=== PATIENT | female | born 1950 | race Caucasian/White ===

== ENCOUNTER 2020-09-08 19:41 | Inpatient (IN) | payer MEDICARE, OTHER ==
[~2020-09-08] VITALS: Ht 167.6 cm; Wt 49.5 kg
[2020-09-08] MEDS ORDERED: BUSP5TAB PO (22:16)
[2020-09-08] MEDS ORDERED: MULT-245 PO (22:16)
[2020-09-08] MEDS ORDERED: LEVO88TA43 PO (22:16)
[2020-09-08] MEDS ORDERED: ASCO500T3 PO (22:16)
[2020-09-08] MEDS ORDERED: QUET50TA5 PO (22:16)
[2020-09-08 23:03] VITALS: BP 104/82
--- NOTE | 2020-09-08 23:14 | NUR ---
Admission Note with Justification for Admission to [facility] Patient admitted to [facility] for protective oversight for emergency stabilization of acute psychiatric crisis. Pt admitted from: [facility] Facility Mode of arrival: Facility Transport Accompanied By: Transport staff Precipitating behaviors that initiated intake and admission: pt belligerent, refusing cares/showers, becoming combative and swinging at staff, agitated, anxious, verbally abusive, and name calling. Description of failure of out patient attempts at stabilization in previous setting list behavior and medication trials: "staff distances themselves" from pt according to intake, outpatient psych. Behaviors and assessment findings upon admission: Pt agitated, resistive with staff attempts to provide care. Pt incontinent upon arrival and when staff was attempting to provide care, pt kicking and attempting to strike staff. Once pt was escorted to the bathroom, it was noted that pt brief was completely saturated with urine and feces. Pt had to be escorted to the shower in order to provide tj care d/t her being so uncooperative. Staff x3 needed in order to complete shower and dressing. Afterwards, pt escorted to [facility] for de-escalation and Dr. Fausto main for new orders. Plan: Admit for protective oversight for adjustment and stabilization of medications, behaviors and mood. Intense treatment regimen including groups, medication adjustments, therapy, consistent regimen for ADL's, self care, and sleep hygiene. Daily monitoring by Inpatient staff, Psychiatry, and Medical Physician.
[2020-09-08] MEDS ORDERED: MAGNESIUM HYDROXIDE 2,400 MG/30 ML ORAL.SUSP. PO PRN (23:45)
[2020-09-08] MEDS ORDERED: MAG HYDROX/AL HYDROX/SIMETH 30 ML ORAL.SUSP PO PRN (23:45)
[2020-09-08] MEDS ORDERED: ACETAMINOPHEN 325 MG TABLET PO PRN (23:45)
[2020-09-08] MEDS ORDERED: METHYL SALICYLATE/MENTHOL TOPICAL OINTMENT 57GM TUBE. TP PRN (23:45)
[2020-09-09] MEDS: LEVOTHYROXINE 88 MCG TABLET PO SCH (04:40)
[2020-09-09 08:08] LABS: AMORPHOUS SEDIMENT,UR PRESENT /HPF; BACTERIA,URINE MANY /HPF (0-FEW); BILIRUBIN,URINE NEG (NEG); CLARITY,URINE TURBID; COLOR,URINE AMBER; GLUCOSE,URINE NEG (NEG); NITRITE,URINE NEG (NEG); RBC,URINE RARE /HPF (0-2); SQUAMOUS EPITHELIAL CELL,UR FEW /LPF; UROBILINOGEN,URINE 0.2 mg/dL (0.2 mg/dL)
[2020-09-09] MEDS: NICOTINE 14MG PATCH. TD SCH (08:22)
[2020-09-09] MEDS: ASCORBIC ACID 500 MG TABLET PO SCH (08:22)
[2020-09-09] MEDS: QUEtiapine 50 MG TABLET. PO SCH ×2 (08:22→19:34)
[2020-09-09] MEDS: MULTIVITAMIN with MINERAL TABLET. PO SCH (08:22)
[2020-09-09] MEDS: busPIRone 5 MG TABLET. PO SCH ×3 (08:22→19:34)
[2020-09-09 08:55] LABS: BASO % 0 % (0-3); EOS # 0.1 x10^3/uL (0.0-0.7); EOS % 2 % (0-3); HEMATOCRIT 44.2 % (36.0-47.0); HEMOGLOBIN 14.2 g/dL (12.0-15.5); LYMPH # 2.3 x10^3/uL (1.0-4.8); LYMPH % 27 % (24-48); MEAN CORPUSCULAR HEMOGLOBIN 31 pg (25-35); MEAN CORPUSCULAR HGB CONC 32 g/dL (31-37); MEAN CORPUSCULAR VOLUME 97 fL (79-100); MONO # 0.6 x10^3/uL (0.0-1.1); MONO % 7 % (0-9); NEUT # 5.5 x10^3uL (1.8-7.7); NEUT % 64 % (31-73); PLATELET COUNT 223 x10^3/uL (140-400); RED BLOOD COUNT 4.54 x10^6/uL (3.50-5.40); RED CELL DISTRIBUTION WIDTH 13.8 % (11.5-14.5); WHITE BLOOD COUNT 8.6 x10^3/uL (4.0-11.0)
[2020-09-09 08:56] LABS: ALBUMIN 3.6 g/dL (3.4-5.0); ALBUMIN/GLOBULIN RATIO 0.8 (1.0-1.7); GFR 54.8; MAGNESIUM 1.8 mg/dL (1.8-2.4); POTASSIUM 4.1 mmol/L (3.5-5.1); TOTAL BILIRUBIN 0.4 mg/dL (0.2-1.0); TOTAL PROTEIN 7.9 g/dL (6.4-8.2)
--- NOTE | 2020-09-09 09:55 | NUR ---
Patient took medications whole, also is calm while doing blood draw. Patient has rapid abnormal body movements that appears unwilling. Dr. Bravo paged for consult.
--- NOTE | 2020-09-09 12:52 | CONS ---
DATE OF CONSULTATION: 09/09/2020 REASON FOR CONSULTATION: Medical management. HISTORY OF PRESENT ILLNESS: The patient is a 69-year-old female patient, a resident at [facility], who was admitted to [facility] on account of being agitated, aggressive, combative, striking out at staff, verbally abusive, belligerent, refusing care and showers, all this in a background of major neurocognitive disorder, vascular Alzheimer with delusion, depression and behavioral disorder. PAST MEDICAL HISTORY: Significant for emphysema and hypothyroidism. PAST PSYCHIATRIC HISTORY: Significant for Alzheimer's disease. PAST SURGICAL HISTORY: Significant for tonsillectomy. ALLERGIES: SHE IS ALLERGIC TO CODEINE, PROPOXYPHENE, AND TETRACYCLINE. FAMILY HISTORY: Noncontributory. SOCIAL HISTORY: She is a intermediate resident. She has 1 son. She continued to smoke, does not drink alcohol or use any recreational drugs. REVIEW OF SYSTEMS: As per history of present illness. PHYSICAL EXAMINATION: GENERAL: When I examined her, the patient was pale, cachectic, but no jaundice, cyanosis or thyromegaly. No jugular venous distention or limb edema. VITAL SIGNS: Her heart rate was 110, blood pressure was 104/82, temperature was 98.4, respiratory rate 20, and oxygen saturation was 96%. HEAD, EYES, EARS, NOSE AND THROAT: Normocephalic, atraumatic. NECK: Supple. HEART: Showed normal first and second heart sounds. No gallop, rub, or murmur. CHEST: Showed central trachea, equal bilateral chest expansion, air entry, vesicular sounds. No crepitation or rhonchi. ABDOMEN: Distended, soft, nontender. NEUROLOGIC: The patient is awake, alert, responding appropriately; however, she has abnormal movement of her upper and lower extremities. She is at times difficult to understand. The movements are purposeless, uncontrollable jerking movement consistent with some form of chorea. LABORATORY DATA: Her lab work showed a white cell count of 8600, hemoglobin 14, hematocrit 44, MCV 97 and platelet count 223,000. Her D-dimer was 2.15 mg/dL. Her chemistry showed a serum sodium of 148, potassium of 4.1, chloride 111, bicarbonate 25, anion gap of 12, BUN 24, creatinine 1, estimated GFR was 54 mL per minute. Her glucose was 93, calcium was 10, magnesium was 1.8. Serum iron, TIBC and iron saturation are all within normal range. Her total bilirubin, AST, ALT, alkaline phosphatase were normal. Total protein 7.9, albumin was 3.6. Serum triglycerides were 87, total cholesterol 213, LDL was 144, VLDL was 17, and HDL was 57 and ratio was 4. Her TSH was 0.018. Her urinalysis essentially unremarkable. IMPRESSION: In summary, this is a 69-year-old female patient, a resident at [facility], who was admitted to [facility] on account of worsening agitation, aggression, combative and striking out at staff. She was verbally abusive, belligerent and refusing cares and showers, all this in a background of major neurocognitive disorder. The patient seems to be overall medically stable except that she probably seems to be at least biochemically hyperthyroid. She has also some form of abnormal movement that looks like [place] disease, although she is probably too old for that. I could not elicit any family history from her and she is difficult to understand. We have already consulted Dr. Bravo to assist with that. Meanwhile, I will continue with all her medications. I would probably check her T3, T4, free T4 and once we have the results, we will decide on further management accordingly. Thank you, Dr. Lambert for allowing me to participate in the care of this patient. HAYLEE LINDSEY MD DR: DON/celso JOB#: [id number] / [id number]
[2020-09-09 16:54] VITALS: BP 100/66
--- NOTE | 2020-09-09 18:05 | PSYEV ---
DATE OF SERVICE: 09/08/2020 PSYCHIATRIC EVALUATION SUBJECTIVE: The patient was seen today, met with the staff, and also covering for Dr. Lambert. The patient was admitted from [facility] because of increased agitation, aggression, combative, and striking out at staff. She also has been verbally abusive, belligerent, refusing to take showers. CHIEF COMPLAINT: "I don't know why I am here". HISTORY OF PRESENT ILLNESS: The patient apparently has been a resident at [facility] and she has multiple problems including physical and also psychiatric issues including dementia, gait problems and also involuntary movements. The patient is unable to sit still. The patient is also having increased __ involuntary movements and also involuntary movements of upper and lower extremities. The patient also has explosive speech. The patient during the assessment was pleasant, did not have any major complaints. The patient is having difficulty communicating her feelings, appears to be pleasant, denies of depressed, admits to increased anxiety and also lacking insight to her problems. The patient also has a history of delusional behaviors in the past. PAST MEDICAL HISTORY: History of emphysema, gait impairment, hypothyroidism and involuntary movements and movement disorder. PAST PSYCHIATRIC HISTORY: The patient was not able to give any information with regard to her past whether she has been treated in psychiatric facility or not, but she carries a diagnosis of dementia, Alzheimer's type, generalized anxiety disorder and also bipolar disorder. PSYCHOSOCIAL HISTORY: She has been a [facility] at the [facility] for [facility] years. Apparently, she has one son. The patient has also history of smoking and no evidence of any alcoholism or substance abuse. The patient was not able to talk about her family. MENTAL STATUS EXAMINATION: The patient appeared to be of her stated age, pleasant, somewhat confused, but able to make eye contact. The patient had considerable difficulty with her speech because of her involuntary movements. She has an explosive speech, able to answer a few questions. She knew that this is August and the year 2020 and she knew she was in the hospital, but could not remember the name except for stating "Bernabe". The patient was able to sit through the assessment, but not able to give much information. The patient gets excited easily, pressured speech, racing thoughts. Affect and mood showed she is not depressed, but is anxious, increased psychomotor activity. She denies of any suicidal thoughts, currently not exhibiting any psychotic symptoms. The patient is oriented to surroundings, knew she was in the hospital and knew the month and year. The patient's memory is not testable because of the patient's inability to answer questions. The patient's judgment is fair and insight limited. DIAGNOSTIC IMPRESSION: AXIS I: 1. Bipolar disorder, mixed. 2. Dementia, mild unspecified. 3. Generalized anxiety disorder. AXIS II: None. AXIS III: Emphysema, hypothyroidism, movement disorder. STRENGTHS: Pleasant, able to walk without support. WEAKNESSES: The patient has limitations with regard to her communication and also movements because of the movement disorder. INITIAL TREATMENT PLAN: The patient will be under observation. The patient will continue on her current medications including BuSpar 5 mg t.i.d., Seroquel 50 mg b.i.d., Zyprexa 2.5 mg p.r.n. q. 2 hours and also trazodone 50 mg at night p.r.n. The patient is encouraged to attend all the activities, including individual and group counseling activities. LENGTH OF STAY: 7 days. DISCHARGE CRITERIA: The patient at least to show some improvement without any major behavior problems for 3 consecutive days and will return to the [facility] that she [facility] from. IDALMIS STARR MD DR: JARROD/celso JOB#: [id number] / [id number] [place]
[2020-09-09] MEDS: traZODone 50 MG TABLET. PO PRN (19:35)
--- NOTE | 2020-09-09 22:30 | NUR ---
Pt sitting quietly in the hallway when approached. Pt calm, disorganized, and delusional- she reports that she is leaving tonight. Pt mood extremely labile, she is very restless with severe ataxia. Pt cooperative with assessment and compliant with medications administered whole, however resistive and uncooperative when staff attempted to escort her to her room to obtain an EKG.
[2020-09-10 01:07] LABS: THYROXINE 10.3 ug/dL (4.5-12.0)
[2020-09-10] MEDS: LEVOTHYROXINE 88 MCG TABLET PO SCH (05:21)
--- NOTE | 2020-09-10 06:03 | NUR ---
Pt has low TSH level of 0.018. Am Levothyroxine 88mcg held at this time and pt added to MD list for today in order to address. Will pass on to the next shift.
[2020-09-10 06:21] VITALS: BP 111/53
[2020-09-10 06:26] LABS: HEMOGLOBIN A1C 5.4 % (4.8-5.6)
[2020-09-10] MEDS: NICOTINE 14MG PATCH. TD SCH (08:36)
[2020-09-10] MEDS: busPIRone 5 MG TABLET. PO SCH ×3 (08:36→21:02)
[2020-09-10] MEDS: MULTIVITAMIN with MINERAL TABLET. PO SCH (08:36)
[2020-09-10] MEDS: ASCORBIC ACID 500 MG TABLET PO SCH (08:36)
[2020-09-10] MEDS: QUEtiapine 50 MG TABLET. PO SCH ×2 (08:36→21:02)
--- NOTE | 2020-09-10 10:23 | NUR ---
PT IS LOCATED IN DINING ROOM AT TIME OF ASSESSMENT AND MEDICATION ADMINISTRATION. PT IS PLEASANT AND COOPERATIVE. PT DOES HAVE ALPHONSE SPASTIC MOVEMENT. PT HAS A CT SCHEDULE FOR THIS AM. WILL CONTINUE TO MONITOR.
[2020-09-10 16:29] VITALS: BP 93/57
--- NOTE | 2020-09-10 17:06 | PN ---
DATE: 09/10/2020 SUBJECTIVE: The patient was seen today, met with the staff, chart reviewed and also covering for Dr. Lambert. The patient's behavior remains the same. She is hyperactive, restless, and generalized involuntary movements. The patient also has significant speech impediment. The patient was seen by the neurologist today and will be requesting a CT scan, but the patient may have difficulty going through the procedure because of her continuous involuntary movements. OBSERVATION: Temperature 97.8, blood pressure 111/53, pulse 95, respirations 18, O2 sat 99%. Slept about 4 hours last night. CURRENT MEDICATIONS: Include Seroquel 50 mg twice a day, BuSpar 5 mg t.i.d. and trazodone 50 mg at night p.r.n. for sleep. She is also on olanzapine 2.5 mg q.2 hours p.r.n. for psychosis. LABORATORY DATA: The patient's labs were reviewed. ASSESSMENT: 1. Bipolar disorder, mixed. 2. Dementia, mild, unspecified. 3. Generalized anxiety disorder. PLAN: To continue with the current treatment. LENGTH OF STAY: 10 days. IDALMIS STARR MD DR: JARROD/celso JOB#: [id number] / [id number] [place]
[2020-09-10] MEDS: traZODone 50 MG TABLET. PO PRN (21:02)
--- NOTE | 2020-09-10 22:43 | NUR ---
PT in room being changed in bed at time of assessment and medication administration. PT noted with new reddened/scabbed area noted to RT lateral lower buttock. Continued noted reddened/scabbed area to coccyx. Barrier cream applied. PT compliant with assessment and medications. PT took whole with water. Photo taken but PT moving constantly, unable to use stickers.
[2020-09-11] MEDS: LEVOTHYROXINE 50 MCG TABLET PO SCH ×2 (05:39→05:48)
--- NOTE | 2020-09-11 06:24 | NUR ---
Patient has been provided with Practical Counseling for tobacco cessation. It included a face to face interaction and the following was discussed: Recognizing danger situations, Developing coping skills,Basic cessation information. Will follow for discharge needs and discharge planning. Therapist could never do a smoking cessation on the patient. We have asked nurse to help with this situation. Patient was non compliant a couple of times that different therapist have tried
[2020-09-11] MEDS: MULTIVITAMIN with MINERAL TABLET. PO SCH (10:32)
[2020-09-11] MEDS: ASCORBIC ACID 500 MG TABLET PO SCH (10:32)
[2020-09-11] MEDS: busPIRone 5 MG TABLET. PO SCH ×3 (10:32→21:00)
[2020-09-11] MEDS: QUEtiapine 50 MG TABLET. PO SCH ×2 (10:32→21:00)
[2020-09-11] MEDS: NICOTINE 14MG PATCH. TD SCH (10:36)
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
--- NOTE | 2020-09-11 12:52 | NUR ---
WEEKLY ACTIVITY THERAPY NOTE Date of Admission: 09/08/20 Date of AT Assessment: TBD Precipitating behaviors that initiated intake and admission: pt belligerent, refusing cares/showers, becoming combative and swinging at staff, agitated, anxious, verbally abusive, and name calling. Goal aimed: TBD Initial Goal: TBD Weekly progress towards goal: NA Group participation level: NA Weekly highlights: arrived on [facility] Behaviors observed: Plan: meet/assess pt Beneficial adaptations:
--- NOTE | 2020-09-11 14:13 | NUR ---
PATIENT WAS AWAKE IN A DAY ROOM EATING HER BREAKFAST UPON ASSESSMENT, COMPLIANT WITH MEDICATIONS. PATIENT HAS HYPERACTIVE ABNORMAL MOVEMENTS, ABLE TO AMBULATE AND FEED SELF UNDER SUPERVISION. PATIENT IS GETTING IMPULSIVE AND IRRITABLE AT TIMES. PATIENT WENT TO HER ROOM, ASKED ABOUT HAVING TV IN A ROOM, PATIENT WAS INFORMED NO TV AVAILABLE IN ANY ROOM EXCEPT THE DAY ROOM. PATIENT REFUSED TO GO TO THE DAY ROOM. PATIENT IS CURRENTLY IN A BED RESTING.
--- NOTE | 2020-09-11 14:35 | NUR ---
ACTIVITY THERAPY ASSESSMENT completed based on notes, observation and interview. Pt was laying in her bed with her face in the pillow. Pt was resistive and unwilling to answer questions. Pt did answer a couple of questions but it was inaudible as she had her face in the pillow and became agitated when AT would ask her to repeat it. AT is unsure if pt became agitated and pt intentionally made a fast movement towards AT as she raised her voice or if it may have been involuntary. Per notes pt has appeared to make involuntary movements sense admission. Per notes pt likes crafts, ceramics, interior decorating and painting. Pt has a history of alcohol abuse and inability to take care of herself. Initial goal aimed to increase socialization and engagement. Pt will participate in at least one individual or group Activity Therapy session before discharge. Addendum: 09/18/20 at 1317 by NILA CHAMBERS ACT Goal changed 09/18: Pt will participate in at least three individual or group Activity Therapy session per week. Addendum: 10/02/20 at 1359 by NILA CHAMBERS ACT Goal repeated 10/02
[2020-09-11 15:44] VITALS: BP 116/62
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
[2020-09-11] MEDS: traZODone 50 MG TABLET. PO PRN (21:00)
[2020-09-11] MEDS: AMOXICILLIN 250 MG CAPSULE PO SCH (21:00)
--- NOTE | 2020-09-12 00:25 | PN ---
DATE: 09/11/2020 SUBJECTIVE: The patient was seen today, met with the staff, chart reviewed, also covering for Dr. Lambert. The patient continues to exhibit significant involuntary movements and also staff reports the patient has not had any long-term exposure to neuroleptics because she has been exhibiting significant involuntary movements and also orofacial dyskinesia. The patient also has been homeless in the past and history of alcoholism. The patient apparently saw a neurologist in [place] and also had an MRI and we are requesting for the reports. OBSERVATION: VITAL SIGNS: Temperature 97, pulse 69, respirations 24, O2 sat 95%. GENERAL: Slept about 7 hours last night. The patient's appetite is fair. MEDICATIONS: The patient's current medications include Seroquel 50 mg twice a day, BuSpar 5 mg t.i.d. and trazodone 50 mg at night p.r.n. LAB REVIEW: No significant change from prior readings. ASSESSMENT: 1. Bipolar disorder, mixed. 2. Dementia, mild unspecified. 3. Generalized anxiety disorder. PLAN: To continue with the treatment. LENGTH OF STAY: Ten days. IDALMIS STARR MD DR: JARROD/celso JOB#: [id number] / [id number]
--- NOTE | 2020-09-12 00:57 | NUR ---
Nursing Note: Pt sitting on side of bed during assessment and med pass. Pt pleasant and compliant with medications.
[2020-09-12] MEDS: LEVOTHYROXINE 50 MCG TABLET PO SCH (05:11)
[2020-09-12 06:02] VITALS: BP 120/73
[2020-09-12] MEDS: NICOTINE 14MG PATCH. TD SCH (09:00)
[2020-09-12] MEDS: QUEtiapine 50 MG TABLET. PO SCH ×2 (09:31→19:42)
[2020-09-12] MEDS: ASCORBIC ACID 500 MG TABLET PO SCH (09:31)
[2020-09-12] MEDS: MULTIVITAMIN with MINERAL TABLET. PO SCH (09:31)
[2020-09-12] MEDS: busPIRone 5 MG TABLET. PO SCH ×3 (09:31→19:43)
[2020-09-12] MEDS: AMOXICILLIN 250 MG CAPSULE PO SCH ×3 (09:32→19:42)
[2020-09-12 16:11] VITALS: BP 117/75
--- NOTE | 2020-09-12 18:30 | NUR ---
Patient has been calm, compliant, pleasant, interactive, and social throughout this shift. She spent some time withdrawn to her room in the morning, otherwise spent most of the shift in the day room. She was social with peers and staff. Patient has garbled speech and irregular movements similar to Weakley's. Will continue to monitor and report to oncoming shift.
[2020-09-12] MEDS: traZODone 50 MG TABLET. PO PRN (19:44)
--- NOTE | 2020-09-12 23:47 | NUR ---
Nursing Note Pt in day room, has a severe ataxic gait, flails arms around walks around the day room with a specific pattern to her gait. Pt states her name is Verito, but then trails off and rambling. Med compliant and cooperative.
--- NOTE | 2020-09-13 02:04 | PN ---
DATE: 09/12/2020 SUBJECTIVE: The patient was seen today, met with the staff, chart reviewed and also covering for Dr. Lambert. The patient is exhibiting increased agitation, aggression, and combative behaviors including striking at staff: OBSERVATION: VITAL SIGNS: Temperature 97.7, blood pressure 120/73, respirations 18, pulse 78, O2 sat 96%. GENERAL: Slept about 7 hours last night. The patient continues to have increased involuntary movements and was seen by the neurologist. CURRENT MEDICATIONS: Include Seroquel 50 mg twice a day, BuSpar 5 mg t.i.d., trazodone 50 mg at night, and also olanzapine 2.5 mg q.2 hours p.r.n. The patient is not having any other side effects. According to the reports, the patient has been having involuntary movements for a long period of time. Apparently, there is no indication that she has been exposed to long-term neuroleptics. ASSESSMENT: 1. Bipolar disorder, mixed. 2. Dementia, mild unspecified. 3. Generalized anxiety disorder. 4. History of alcohol dependence. PLAN: To continue with treatment. LENGTH OF STAY: 7-10 days. IDALMIS STARR MD DR: JARROD/celso JOB#: [id number] / [id number]
[2020-09-13] MEDS: LEVOTHYROXINE 50 MCG TABLET PO SCH (05:40)
[2020-09-13 06:07] VITALS: BP 127/82
[2020-09-13] MEDS: AMOXICILLIN 250 MG CAPSULE PO SCH ×3 (08:41→19:51)
[2020-09-13] MEDS: QUEtiapine 50 MG TABLET. PO SCH ×2 (08:41→19:51)
[2020-09-13] MEDS: MULTIVITAMIN with MINERAL TABLET. PO SCH (08:41)
[2020-09-13] MEDS: busPIRone 5 MG TABLET. PO SCH ×3 (08:41→19:51)
[2020-09-13] MEDS: ASCORBIC ACID 500 MG TABLET PO SCH (08:41)
[2020-09-13] MEDS: NICOTINE 14MG PATCH. TD SCH (08:42)
[2020-09-13 15:28] VITALS: BP 88/53
--- NOTE | 2020-09-13 17:28 | NUR ---
Patient has been agitated, resistive to medications, with outbursts of anger today. She was yelling loudly at about lunch time saying that she did not want to stay in the hospital. She was instructed to return to her room as she was upsetting other patients, she refused. When staff attempted to escort her to her room, she lay on the floor and was combative, hitting and kicking staff. PRN medication provided per eMAR and patient was escorted to her room. Patient stayed in her room and was cooperative with 14:00 medications, then suddenly through the water cup and started bouncing up and down on her bed, swinging her arms and kicking out. Patient stayed in her room until later when she was sitting calmly in the [address] during MD's rounds. Will continue to monitor and report to oncoming staff.
[2020-09-13] MEDS: traZODone 50 MG TABLET. PO PRN (19:54)
[2020-09-13] MEDS: clonazePAM 0.5 MG TABLET PO SCH (19:54)
--- NOTE | 2020-09-13 23:25 | NUR ---
Nursing Note Pt initially was compliant with assessment but soon became irritable. Pt using extremely foul language toward nursing, when refusing her meds. She used multiple profane terms to describe me when she realized I was taking her power aid from her. 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 Went to bed with no meds.
--- NOTE | 2020-09-14 00:30 | PN ---
DATE: 09/12/2020 SUBJECTIVE: The patient was seen today, met with the staff, chart reviewed and also covering for Dr. Lambert. Staff reports compliant with meds and assessment, pleasant, interacting with the staff. OBSERVATION: VITAL SIGNS: Temperature 97.0, blood pressure 86/56, pulse 83, respirations 16, O2 sat 95%. CURRENT MEDICATIONS: Include Seroquel 50 mg twice a day, BuSpar 5 mg 3 times a day, trazodone 50 mg at night and also on olanzapine 2.5 mg q. 2 hours p.r.n. The patient is not having any side effects to the medications. The patient continues to have involuntary movements, generalized. ASSESSMENT: 1. Bipolar disorder, mixed. 2. Dementia, mild unspecified. 3. Generalized anxiety disorder. 4. History of alcohol dependence. PLAN: To continue with the treatment. LENGTH OF STAY: 7-10 days. IDALMIS STARR MD DR: JARROD/celso JOB#: [id number] / [id number]
--- NOTE | 2020-09-14 01:05 | PN ---
DATE: 09/10/2020 SUBJECTIVE: The patient denies any new medical or neurological complaints. However, the patient continued to have agitation and aggressive behavior with restlessness and hyperactivity. She continues to have generalized involuntarily movements of the upper and lower extremities with chorea-like movements. Head CT scan was not performed because of continuous involuntarily movements. She has not had any falls or head injuries. OBJECTIVE: GENERAL: Well-developed, well-nourished female, not in acute distress. VITAL SIGNS: Blood pressure 111/53, respiratory rate 18, pulse is 95, temperature 97.8, oxygen saturation 99% on room air. HEENT: Normocephalic, atraumatic, otherwise unremarkable. NECK: Supple. Negative for carotid bruit, lymphadenopathy or thyromegaly. LUNGS: Clear to A and P. CARDIOVASCULAR: Regular rate and rhythm, normal S1, S2. ABDOMEN: Soft. Bowel sounds positive. EXTREMITIES: Negative for cyanosis, clubbing or edema. NEUROLOGICAL EXAM: Mental Status: The patient is alert to herself. Speech is fluent. There is no language dysfunction. Memory, judgment, and abstracting thinking are fair. The patient denies hallucination or delusion. Cranial nerves are intact. No focal motor deficits; however, the patient continues to have abnormal involuntarily movements of the upper and lower extremities with chorea-like movements Sensory examination revealed normal pinprick, light touch, vibratory and position senses. Deep tendon reflexes were symmetric and hypoactive with absent Achilles responses. Gait unsteady stance but difficult to perform tandem gait because of involuntarily movements. IMPRESSION: 1. Involuntarily movements of the upper and lower extremities, which are chorea-type movements. However, the patient continued to have unsteady gait, but not dysarthric, any falls or recent head injuries since admission. The etiology of involuntarily movement is uncertain. According to the nursing staff, the patient did have urinary incontinence. 2. Dementia of mild severity. Normocephalic hydrocephalus should be ruled out as the patient has dementia with gait disturbances and urinary incontinence. 3. Multiple psychiatric problems include bipolar disorders, anxiety disorders with behavior disturbances. RECOMMENDATIONS: As the patient has been unsteady and involuntarily movements, head CT scan performance is a challenge, therefore recommended to have a sedation before the procedure with Valium 5 mg p.o. Otherwise, continue with current medical and psychiatric care. M Gail DEMARCO MD DR: TAMARA/celso JOB#: [id number] / [id number]
[2020-09-14] MEDS: LEVOTHYROXINE 50 MCG TABLET PO SCH (05:38)
[2020-09-14] MEDS ORDERED: diazePAM 5 MG TABLET. PO ONE (06:00)
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
--- NOTE | 2020-09-14 07:57 | RAD ---
CT brain without contrast. HISTORY: Evaluate for hydrocephalus, patient appears to have choreatic movements CT scan of brain was done without contrast. There is motion artifact. There is no intracranial hemorr elodia or subdural hematoma. Motion artifact limits the scan. There is no shift of the midline. CVA is not identified. Patient has hydrocephalus. I do not have an old study for comparison. Sinuses are gunnar ar. IMPRESSION: 1. Limited study due to motion artifact. 2. Hydrocephalus. 3. No intracranial hemorrhage. PQRS Compliance Statement: One or more of the following individualized dose reduction techniques were utilized for this examinat ion: 1. Automated exposure control 2. Adjustment of the mA and/or kV according to patient size 3. Use of iterative reconstruction technique Electronically signed by: Hernandez Warren MD (09/14/2020 7:55 AM) [id number]
[2020-09-14] MEDS: QUEtiapine 50 MG TABLET. PO SCH ×3 (08:22→21:00)
[2020-09-14] MEDS: busPIRone 5 MG TABLET. PO SCH ×4 (08:22→21:00)
[2020-09-14] MEDS: clonazePAM 0.5 MG TABLET PO SCH ×3 (08:22→21:00)
[2020-09-14] MEDS: MULTIVITAMIN with MINERAL TABLET. PO SCH (08:23)
[2020-09-14] MEDS: NICOTINE 14MG PATCH. TD SCH (08:23)
[2020-09-14] MEDS: ASCORBIC ACID 500 MG TABLET PO SCH (08:23)
[2020-09-14] MEDS: AMOXICILLIN 250 MG CAPSULE PO SCH ×4 (08:23→21:00)
[2020-09-14] MEDS: LACTOBACILLUS RHAMNOSUS GG 1 CAPSULE. PO SCH ×3 (13:47→21:00)
[2020-09-14 16:20] VITALS: BP 129/75
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
--- NOTE | 2020-09-14 23:17 | NUR ---
PT IS LOCATED IN PT ROOM AT TIME OF ASSESSMENT AND MEDICATION ADMINISTRATION. PT IS RESITIVE WITH MEDICATIONS AND TOLD THIS NURSE TO GET OUT OF HER ROOM. PT IS STILL RESTING IN BED AT THIS TIME. WILL CONTINUE TO MONITOR.
--- NOTE | 2020-09-15 07:07 | PN ---
DATE: 09/14/2020 SUBJECTIVE: Staff reports no major changes except she is much calmer today and received Klonopin 0.5 mg twice a day. Yesterday ____ but continues to have involuntary movements when she is awake. OBSERVATION: VITAL SIGNS: Stable. MEDICATIONS: The patient's current medications include Seroquel 50 mg twice a day, BuSpar 5 mg 3 times a day, trazodone 50 mg at night, and olanzapine 2.5 mg q. 2 hours p.r.n. and also Klonopin 0.5 mg twice a day. The patient is not having any side effects to the medications. ASSESSMENT: 1. Bipolar disorder. 2. Dementia, mild, unspecified. 3. Generalized anxiety disorder. 4. History of alcohol dependence. PLAN: Continue treatment. LENGTH OF STAY: 7 days. IDALMIS STARR MD DR: JARROD/celso JOB#: [id number] / [id number]
--- NOTE | 2020-09-15 07:59 | PN ---
DATE: 09/14/2020 SUBJECTIVE: The patient denies any new medical or neurological complaints. She has not had any falls recently. However, she continues to have abnormal movements of the upper and lower extremity with unsteady gait. OBJECTIVE: GENERAL: Well-developed, well-nourished female, not in acute distress. VITAL SIGNS: Blood pressure 129/75, respiratory rate of 22, pulse is 112, temperature 97.8, oxygen saturation 95% on room air. HEENT: Normocephalic, atraumatic, otherwise unremarkable. NECK: Supple. Negative for carotid bruit, lymphadenopathy or thyromegaly. LUNGS: Clear to A and P. CARDIOVASCULAR: Regular rate and rhythm, normal S1, S2. There is no S3, S4 or murmur. ABDOMEN: Soft. Bowel sounds positive. EXTREMITIES: Negative for cyanosis, clubbing or edema. NEUROLOGIC EXAM: The patient is alert and oriented to herself and place. Speech is fluent. There is no language dysfunction. Memory, judgment, and abstracting thinking are fair. The patient denies hallucination or delusion. Cranial nerves are intact. No focal motor or sensory deficits; however, the patient continued to have involuntarily movements as described before. Deep tendon reflexes were symmetric and hypoactive with absent Achilles responses. Gait is abnormal tandem gait with mild dystonia. IMPRESSION: 1. Mild dementia with abnormal gait and urinary incontinence suggestive of normal pressure hydrocephalus. 2. Multiple psychiatric problems include bipolar disorder, anxiety disorder. 3. Mild dementia. RECOMMENDATIONS: 1. Continue with current medical and psychiatric care. 2. Awaiting head CT scan to rule out ____ hydrocephalus. M Gail DEMARCO MD DR: TAMARA/celso JOB#: [id number] / [id number]
[2020-09-15] MEDS: busPIRone 5 MG TABLET. PO SCH ×3 (08:33→20:23)
[2020-09-15] MEDS: QUEtiapine 50 MG TABLET. PO SCH ×2 (08:33→20:23)
[2020-09-15] MEDS: MULTIVITAMIN with MINERAL TABLET. PO SCH (08:33)
[2020-09-15] MEDS: NICOTINE 14MG PATCH. TD SCH (08:33)
[2020-09-15] MEDS: clonazePAM 0.5 MG TABLET PO SCH ×2 (08:34→20:22)
[2020-09-15] MEDS: LACTOBACILLUS RHAMNOSUS GG 1 CAPSULE. PO SCH ×2 (08:34→20:23)
[2020-09-15] MEDS: AMOXICILLIN 250 MG CAPSULE PO SCH ×3 (08:34→20:22)
[2020-09-15] MEDS: ASCORBIC ACID 500 MG TABLET PO SCH (08:35)
[2020-09-15] MEDS: LEVOTHYROXINE 50 MCG TABLET PO SCH (08:35)
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
[2020-09-15] MEDS: traZODone 50 MG TABLET. PO PRN (20:22)
--- NOTE | 2020-09-15 21:00 | PN ---
DATE: 09/15/2020 SUBJECTIVE: The patient was seen today, met with the staff, chart reviewed and also covering for Dr. Lambert. Staff reports that she refused medications and also angry with the staff. The patient is being evaluated for movement disorder. The patient apparently had a CT scan positive for hydrocephalus. The patient to be followed up by Dr. Bravo, the neurologist. OBSERVATION: VITAL SIGNS: Temperature 97.7, pulse 96, respirations 20, O2 sat 96%. Slept about 7 hours last night. The patient's appetite is fair. MEDICATIONS: The patient's current medications include Seroquel 50 mg twice a day, BuSpar 5 mg 3 times a day, trazodone 50 mg at night, and olanzapine 2.5 mg q. 2 hours p.r.n. and also Klonopin 0.5 mg twice a day. She is not having any side effects to the medications. ASSESSMENT: 1. Bipolar disorder. 2. Dementia, mild. unspecified. 3. Generalized anxiety disorder. 4. History of alcohol dependence. PLAN: To continue with the treatment. LENGTH OF STAY: 7 days. IDALMIS STARR MD DR: JARROD/celso JOB#: [id number] / [id number]
--- NOTE | 2020-09-15 23:12 | NUR ---
Pt was cooperative at beginning of shift. At 2200 staff gave pt a shower. Pt kicked and screamed curse words at staff. It took 3 staff to bathe pt before putting her back to bed. After some time in bed the pt calmed down and went to sleep.
--- NOTE | 2020-09-15 23:51 | NUR ---
Patient is ambulating around the unit on assumption of care. She is disorganized, confused. Compliant with physical assessments but refused to answer orientation questions. Took her medications whole without issue. No agitation until it was time for shower and HS cares, then patient became belligerent and resistive. Staff assist of 3 required to perform shower, and patient spent the whole time yelling and flailing about. She eventually calmed once brought back to her room. No further agitation. She does not appear to be experiencing any pain or discomfort. Patient appears to be sleeping comfortably at present time. Will continue to monitor.
[2020-09-16] MEDS: LEVOTHYROXINE 50 MCG TABLET PO SCH (05:02)
[2020-09-16] MEDS: MULTIVITAMIN with MINERAL TABLET. PO SCH (08:20)
[2020-09-16] MEDS: busPIRone 5 MG TABLET. PO SCH ×3 (08:20→20:13)
[2020-09-16] MEDS: QUEtiapine 50 MG TABLET. PO SCH ×2 (08:20→20:13)
[2020-09-16] MEDS: ASCORBIC ACID 500 MG TABLET PO SCH (08:20)
[2020-09-16] MEDS: NICOTINE 14MG PATCH. TD SCH (08:20)
[2020-09-16] MEDS: LACTOBACILLUS RHAMNOSUS GG 1 CAPSULE. PO SCH ×2 (08:21→20:13)
[2020-09-16] MEDS: AMOXICILLIN 250 MG CAPSULE PO SCH ×3 (08:21→20:12)
[2020-09-16] MEDS: clonazePAM 0.5 MG TABLET PO SCH (08:23)
--- NOTE | 2020-09-16 14:00 | NUR ---
Patient fell in dayroom. Patient stated she lost her balance. Patient fell back hitting her posterior head. Patient has some swelling and redness localized on her head. Dr. Craig notified of of fall no new orders. Patient family notified of patient fall.
[2020-09-16 15:39] VITALS: BP 102/78
[2020-09-16 15:41] VITALS: BP 90/78
[2020-09-16 16:10] LABS: BASO % 1 % (0-3); EOS # 0.3 x10^3/uL (0.0-0.7); EOS % 4 % (0-3); HEMATOCRIT 41.2 % (36.0-47.0); HEMOGLOBIN 13.5 g/dL (12.0-15.5); LYMPH # 1.7 x10^3/uL (1.0-4.8); LYMPH % 25 % (24-48); MEAN CORPUSCULAR HEMOGLOBIN 32 pg (25-35); MEAN CORPUSCULAR HGB CONC 33 g/dL (31-37); MEAN CORPUSCULAR VOLUME 96 fL (79-100); MONO # 0.5 x10^3/uL (0.0-1.1); MONO % 8 % (0-9); NEUT # 4.1 x10^3uL (1.8-7.7); NEUT % 62 % (31-73); PLATELET COUNT 226 x10^3/uL (140-400); RED BLOOD COUNT 4.28 x10^6/uL (3.50-5.40); RED CELL DISTRIBUTION WIDTH 13.6 % (11.5-14.5); WHITE BLOOD COUNT 6.6 x10^3/uL (4.0-11.0)
[2020-09-16 16:16] LABS: ALBUMIN 3.1 g/dL (3.4-5.0); ALBUMIN/GLOBULIN RATIO 0.8 (1.0-1.7); CREATININE 1.2 mg/dL (0.6-1.0); GFR 44.4; POTASSIUM 4.1 mmol/L (3.5-5.1); TOTAL BILIRUBIN 0.3 mg/dL (0.2-1.0); TOTAL PROTEIN 6.9 g/dL (6.4-8.2)
[2020-09-16 16:41] VITALS: BP 92/51
--- NOTE | 2020-09-16 17:34 | NUR ---
BP low. Orthostatic drop of 30 points from sitting to standing. Dr Craig notified. Order to dc clonapin. Informed Dr Lynn of med change.
[2020-09-16] MEDS: traZODone 50 MG TABLET. PO PRN (20:13)
--- NOTE | 2020-09-16 20:18 | PN ---
DATE: 09/16/2020 SUBJECTIVE: The patient was seen today, met with the staff, chart reviewed. Also, covering for Dr. Lambert. Staff reports she fell today, hit her head with no major injuries. Currently, she is under observation. The patient is still confused, disorganized, resistive to care, compliant with medications, but refused Synthroid. She is also uncooperative with vital signs. The patient continues to show increased involuntary movements, generalized. OBSERVATION: VITAL SIGNS: The patient refused. GENERAL: Slept about 7 hours last night. LABORATORY DATA: The patient's lab reviewed. Also, imaging, the patient had a CT scan of the head and the impression was limited study due to motion artifact, hydrocephalus and no intracranial hemorrhage. MEDICATIONS: The patient's current medications include clonazepam 0.5 mg twice a day mostly for involuntary movements and anxiety, Seroquel 50 mg twice a day, BuSpar 5 mg 3 times a day, trazodone 50 mg at night p.r.n. for sleep and olanzapine 2.5 mg q.2 hours p.r.n. for psychosis. The patient is not having any side effects to medications. ASSESSMENT: 1. Bipolar disorder. 2. Dementia, mild unspecified. 3. Generalized anxiety disorder. 4. History of alcohol dependence. PLAN: To continue with treatment. LENGTH OF STAY: 7 days. IDALMIS STARR MD DR: JARROD/celso JOB#: [id number] / [id number]
--- NOTE | 2020-09-16 21:17 | NUR ---
Patient is in her room on assumption of care, awake in bed. She is disorganized, confused. Compliant with physical assessments but refused to answer orientation questions. Took her medications whole without issue. No agitation. She does not appear to be experiencing any pain or discomfort. Patient appears to be sleeping comfortably at present time. Will continue to monitor.
[2020-09-17] MEDS: LEVOTHYROXINE 50 MCG TABLET PO SCH ×2 (05:05→08:38)
[2020-09-17] MEDS: ASCORBIC ACID 500 MG TABLET PO SCH (08:38)
[2020-09-17] MEDS: busPIRone 5 MG TABLET. PO SCH ×3 (08:38→19:43)
[2020-09-17] MEDS: MULTIVITAMIN with MINERAL TABLET. PO SCH (08:38)
[2020-09-17] MEDS: LACTOBACILLUS RHAMNOSUS GG 1 CAPSULE. PO SCH ×2 (08:38→19:42)
[2020-09-17] MEDS: NICOTINE 14MG PATCH. TD SCH (08:38)
[2020-09-17] MEDS: QUEtiapine 50 MG TABLET. PO SCH ×2 (08:39→19:42)
[2020-09-17] MEDS: AMOXICILLIN 250 MG CAPSULE PO SCH ×3 (08:39→19:42)
--- NOTE | 2020-09-17 18:37 | NUR ---
Pt up for meals with assist. Resistive to ADL if pt is sleeping. Has been in pleasant spirits most of day.
[2020-09-17] MEDS: traZODone 50 MG TABLET. PO PRN (19:42)
--- NOTE | 2020-09-17 21:43 | PN ---
DATE: 09/17/2020 SUBJECTIVE: The patient was seen today, met with the staff, chart reviewed and also covering for Dr. Lambert. The patient apparently resting and staff reports no major behavior problems, no falls, but continues to have increased involuntary movements while she is awake. The patient also resistive to care. OBSERVATION: VITAL SIGNS: Temperature 96.8, refused blood pressure, pulse 83, respirations 18, O2 sat 96%. Slept about 7 hours last night. Her appetite is fair. MEDICATIONS: The patient's current medication includes amoxicillin 250 mg t.i.d., levothyroxine 50 mg daily, Seroquel 50 mg twice a day, BuSpar 5 mg 3 times a day and olanzapine 2.5 mg q. 2 hours p.r.n. and Klonopin was discontinued. The patient's appetite is fair. The patient is not having any major side effects. ASSESSMENT: 1. Bipolar disorder. 2. Dementia, mild, unspecified. 3. Generalized anxiety disorder. 4. History of alcohol dependence. PLAN: To continue with the treatment. LENGTH OF STAY: 7 days. IDALMIS STARR MD DR: JARROD/celso JOB#: [id number] / [id number]
[2020-09-18 06:20] VITALS: BP 129/87
[2020-09-18] MEDS: AMOXICILLIN 250 MG CAPSULE PO SCH ×3 (08:11→20:13)
[2020-09-18] MEDS: ASCORBIC ACID 500 MG TABLET PO SCH (08:11)
[2020-09-18] MEDS: MULTIVITAMIN with MINERAL TABLET. PO SCH (08:11)
[2020-09-18] MEDS: LACTOBACILLUS RHAMNOSUS GG 1 CAPSULE. PO SCH ×2 (08:11→20:13)
[2020-09-18] MEDS: LEVOTHYROXINE 50 MCG TABLET PO SCH (08:11)
[2020-09-18] MEDS: busPIRone 5 MG TABLET. PO SCH ×3 (08:11→20:13)
[2020-09-18] MEDS: QUEtiapine 50 MG TABLET. PO SCH ×2 (08:11→20:13)
[2020-09-18] MEDS: NICOTINE 14MG PATCH. TD SCH (08:11)
--- NOTE | 2020-09-18 13:11 | NUR ---
WEEKLY ACTIVITY THERAPY NOTE Date of Admission: 09/08/20 Date of AT Assessment: 09/11 Precipitating behaviors that initiated intake and admission: pt belligerent, refusing cares/showers, becoming combative and swinging at staff, agitated, anxious, verbally abusive, and name calling. Goal aimed:increase socialization and engagement Initial Goal:Pt will participate in at least one individual or group Activity Therapy session before discharge. Weekly progress towards goal: exceeded, 09/14 Group participation level: 2 min, 1 mod, 1 full Weekly highlights: dancing and encouraging peers on Friday, birdhouses Friday, Easter basket Friday Behaviors observed: pleasant with peers, combative with another pt Friday Plan: change goal to: Pt will participate in at least three individual or group Activity Therapy sessions per week. Beneficial adaptations:
--- NOTE | 2020-09-18 14:21 | TX PLAN ---
Interdisciplinary Tx Plan Admission Information Sep 08, 2020 at 21:37 Legal Status (on Admission): Voluntary DPOA/Guardian Name: Lauren Sainz Contact Other Contact Name: Brody Other Contact Verified Code Status: DNR Allergies: Coded Allergies: codeine (Verified Allergy, Unknown, Unknown, 09/08/20) propoxyphene (Verified Allergy, Unknown, Unknown, 09/08/20) tetracycline (Verified Allergy, Unknown, Unknown, 09/08/20) Diagnoses Primary Diagnosis: 1. Bipolar disorder, mixed. 2. Dementia, mild unspecified. 3. Generalized anxiety disorder. Reasons for Admission: Aggressive, Agitated, Angry, Anxiety/Panic, Combative Problem in Patient's Words: The behaviors that pt is currently demonstrating are the behaviors she was having a few years ago when she was placed in her facility. At that time, she probably hadn't bathed in nine monthes as she was living in an apaprtment and not caring for herself. Additional Admission Comments: Per intake pt, was belligerent, refusing cares/showers, incontinent, combative, swinging at staff, agitated, anxious, verbally abusive, name calling, and staff from her facility would distance themseleves from her because of her behaviors. Problems Active Problems: Agitation, angry, withdrawn, uncooperative Inactive Problems: None noted at this time. Pt Strengths/Limitations Ability for [place]: Poor Cognitive Functioning/Ability: Poor Communication Skills/Ability: Poor Financial Resources: Poor Insight/Judgement: Poor Intellectual Ability: Poor Physical Health: Fair Social Skills: Poor Stability in Family: Fair Stability in School/Work: Poor Verbal Skills: Fair Discharge Criteria Discharge Criteria: No need for close observ., Adequate arrangements @DC, V erbal commit med comply, Improved mood/thought Other Discharge Comments: None at this time. Preliminary Discharge Plan Preliminary DC Plan: Current Living Arrange. Special Precautions Special Precautions: Agitation/Assault Fall Risk: Moderate Initial D/C Plan Pt plan is to return to [facility]. Identified Discharge Needs: None noted at this time. Currently Utilized Resources Currently Utilized Resources/P: PCP is Dr. Morrell Psychiatrist is Dr. Cuenca DPOA is sandra Aluren Emeli Facility is [facility] Community Resources: None noted at this time. Identified Problems/Hx/Goals Objectives/Short-Term Goals Short Term Goals: Control abnormal behavior, Dec. Aggression, Dec. Anxiety/Panic, Dec. Outbursts, Dec. Symp. Depression, Medication Stabilization, Monitor Med Effects, Promote Coping Skill Short Term Goals in Patient's: Medication eval and adjusments to help with controlling abnormal behaviors. Help pt to feel better and be less agitated and more compliant with cares. Interventions/Frequency Staff Interventions/Frequency&: Psychiatry to assess pt three times per week for medication management. Nursing to assess behaviors, monitor medications, and complete 15 minute checks daily. Social work to see pt at least two times weekly to aid in return to placement. Activities to encourage pt to participate in group activities daily. 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 According to pt sandra/Lauren MANUEL. Pt would not necessarily work when she was as her husbands would provide for the home. 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 Education: Pt quit school her gage year as she became at 15 y.o. Community Follow-up PCP Psychiatry Community Provider/Family Inpu: Lauren MANUEL, aware of pt hospitalization and provided information on social history. Lauren available as needed for further information. Treatment Plan Explained Patient/Rn Corrections had this treatment plan explained to him/her as indicated by the signature below and has been given the opportunity to ask questions and make suggestions: Date: Patient/Rn Corrections Signature: Status Update Update Pt eating about 75% of his meals and averaging about 7.25 hours of sleep. Pt intermittently resistive with cares and somewhat argumentative. Pt, however, has been compliant the past couple of days. Staff waiting on records from [facility] of CT and MRI. Sandra participated in treatment plan and involuntary movements have been noted for a couple of years, as well as, shuffling feet when she walks. Pt will return to [facility] once stable. TAURUS HUSAIN Sep 18, 2020 14:21
[2020-09-18 15:45] VITALS: BP 108/72
--- NOTE | 2020-09-18 16:20 | NUR ---
NSG NOTE; CONFUSION PT HAS SPENT MOST OF THE AFTERNOON IN HER ROOM. SHE CONT TO BE CONFUSED AND COMPLIANT
[2020-09-18] MEDS: traZODone 50 MG TABLET. PO PRN (20:13)
--- NOTE | 2020-09-18 20:54 | PN ---
DATE: 09/18/2020 SUBJECTIVE: The patient was seen today, met with the staff, chart reviewed and also covering for Dr. Lambert. Participated in the treatment review conference today. Staff reports increased confusion, disorganized thinking, resistive to care, but compliant with the medications. She slept about 7 hours last night, ate 75% of her meals. MEDICATIONS: Include amoxicillin 250 mg t.i.d., levothyroxine 50 mg daily, Seroquel 50 mg twice a day, BuSpar 5 mg 3 times a day and olanzapine 2.5 mg q. 2 hours p.r.n. and Klonopin was discontinued. The patient's appetite is fair. The patient is not having any major side effects. I also spoke with the family member as part of her treatment review conference. ASSESSMENT: 1. Bipolar disorder. 2. Dementia, mild unspecified. 3. Generalized anxiety disorder. 4. History of alcohol dependence. PLAN: To continue with the treatment. LENGTH OF STAY: 7 days. IDALMIS STARR MD DR: JARROD/celso JOB#: [id number] / [id number]
--- NOTE | 2020-09-18 23:50 | PN ---
DATE: 09/15/2020 SUBJECTIVE: The patient denies any new medical or neurological complaints. She continued to have involuntarily movements and gait disturbances. She has not had any fall recently, however, she has tendency to fall. OBJECTIVE: GENERAL: Well-developed, well-nourished female, not in acute distress. VITAL SIGNS: Blood pressure not recorded. Afebrile, temperature 97.7, oxygen saturation is 96% on room air, and pulse is 96. HEENT: Normocephalic, atraumatic, otherwise unremarkable. NECK: Supple. Negative for carotid bruit, lymphadenopathy or thyromegaly. LUNGS: Clear to A and P. CARDIOVASCULAR: Regular rate and rhythm, normal S1, S2. ABDOMEN: Soft. Bowel sounds positive. EXTREMITIES: Negative for cyanosis, clubbing or edema. NEUROLOGICAL EXAM: Mental Status: The patient is alert and oriented to herself and situation. Speech is slow. No language dysfunction. Memory, judgment, and abstract thinking are fair. The patient denies hallucination or delusion. Cranial nerves are intact. No focal motor or sensory deficit. Deep tendon reflexes were symmetric and hypoactive with absent Achilles responses. Gait: The stance is unsteady. The patient has involuntarily movement involving the upper and lower extremities. Gait is unsteady. DIAGOSTIC STUDIES: Initial nonenhanced CT scan performed on 09/14/2020 revealed hydrocephalus, otherwise unremarkable. IMPRESSION: 1. Dementia of mild severity. 2. Bipolar disorder and generalized anxiety disorders. 3. Involuntarily movements, etiology uncertain, probably due to normal pressure hydrocephalus. 4. History of alcohol dependence. RECOMMENDATIONS: 1. Continue with physical therapy as needed. 2. The patient should have neurosurgeon evaluation on an outpatient basis to evaluate her for possible surgical intervention and shunt placement, otherwise we will continue with current medical and psychiatric care. M Gail DEMARCO MD DR: TAMARA/celso JOB#: [id number] / [id number]
--- NOTE | 2020-09-19 00:28 | NUR ---
Pt withdrawn to room, lying in bed awake when approached. Pt calm, confused, and disorganized but interactive during our encounter. Pt cooperative with assessment and compliant with medications administered whole.
[2020-09-19] MEDS: LEVOTHYROXINE 50 MCG TABLET PO SCH (05:27)
[2020-09-19 06:10] VITALS: BP 130/76
[2020-09-19] MEDS: QUEtiapine 50 MG TABLET. PO SCH ×2 (09:57→19:43)
[2020-09-19] MEDS: ASCORBIC ACID 500 MG TABLET PO SCH (09:57)
[2020-09-19] MEDS: LACTOBACILLUS RHAMNOSUS GG 1 CAPSULE. PO SCH ×2 (09:57→19:43)
[2020-09-19] MEDS: busPIRone 5 MG TABLET. PO SCH ×3 (09:57→19:43)
[2020-09-19] MEDS: MULTIVITAMIN with MINERAL TABLET. PO SCH (09:57)
[2020-09-19] MEDS: NICOTINE 14MG PATCH. TD SCH (09:57)
--- NOTE | 2020-09-19 13:47 | NUR ---
PATIENT LOCATED IN A DAY ROOM PARTICIPATING IN A GROUP UPON ASSESSMENT. PATIENT IS COMPLIANT WITH MEDICATION, NEED SOME ENCOURAGEMENT TO GET PILLS SWALLOWED, PATIENT REPEATEDLY PULLED HER MEDICATIONS OUT FROM HER MOUTH WITH FINGERS, PT WAS INSTRUCTED TO PUT THEM BACK AND SWALLOW WITH WATER. PATIENT FOLLOWED DIRECTIONS. PATIENT IS CURRENTLY IN HER ROOM TAKING A NAP.
[2020-09-19 16:04] VITALS: BP 104/67
[2020-09-19] MEDS: traZODone 50 MG TABLET. PO PRN (19:43)
--- NOTE | 2020-09-19 21:46 | NUR ---
Pt withdrawn to room, lying in bed when approached. Pt irritable, disorganized, and resistive. Pt combative when approached for assessment and medications, striking out at staff. Medications administered via oral syringe which pt consumed.
[2020-09-20] MEDS: LEVOTHYROXINE 50 MCG TABLET PO SCH (05:36)
[2020-09-20 06:09] VITALS: BP_SYST 138; BP_SYST 80; BP_DIAS 102; BP_DIAS 48
[2020-09-20] MEDS: busPIRone 5 MG TABLET. PO SCH ×3 (08:45→20:33)
[2020-09-20] MEDS: MULTIVITAMIN with MINERAL TABLET. PO SCH (08:45)
[2020-09-20] MEDS: ASCORBIC ACID 500 MG TABLET PO SCH (08:45)
[2020-09-20] MEDS: LACTOBACILLUS RHAMNOSUS GG 1 CAPSULE. PO SCH ×2 (08:45→20:33)
[2020-09-20] MEDS: QUEtiapine 50 MG TABLET. PO SCH ×2 (08:45→20:33)
[2020-09-20] MEDS: NICOTINE 14MG PATCH. TD SCH (08:46)
--- NOTE | 2020-09-20 16:08 | NUR ---
Patient was extremely agitated after breakfast and would not take morning medication, she knocked the water cup out of my hand at that time. RE-approached patient after about an hour and she was calm and compliant with medications. She has been disorganized, wandering, and calm for the remainder of this shift. Will continue to monitor and report to oncoming shift.
[2020-09-20 16:15] VITALS: BP 119/76
[2020-09-20] MEDS: traZODone 50 MG TABLET. PO PRN (20:33)
--- NOTE | 2020-09-20 21:43 | PN ---
DATE: 09/19/2020 This is late entry for the service date 09/19/2020. SUBJECTIVE: Staff reports some improvement, increased confusion, but compliant with medication. OBJECTIVE: VITAL SIGNS: Blood pressure 130/76, pulse 83, respirations 16, O2 sat 96%. GENERAL: Slept about 8 hours last night. The patient slept fairly well for the past few days. MEDICATIONS: The patient's current medications include Seroquel 50 mg twice a day, BuSpar 5 mg 3 times a day and olanzapine 2.5 mg q. 2 hours p.r.n. The patient is not having any side effects from the medications. LABORATORY DATA: Reviewed. ASSESSMENT: 1. Bipolar disorder. 2. Dementia, mild unspecified. 3. Generalized anxiety disorder. 4. History of alcohol dependence. PLAN: To continue with the treatment. LENGTH OF STAY: 7 days. IDALMIS STARR MD DR: JARROD/celso JOB#: [id number] / [id number]
--- NOTE | 2020-09-20 22:50 | PN ---
DATE: 09/20/2020 SEEN BY TELEHEALTH SUBJECTIVE: The patient's behavior remains the same. Continues to be hyperactive, restless with markedly involuntary movements. The patient is also exhibiting increased confusion. OBJECTIVE: VITAL SIGNS: Temperature 97.7, blood pressure is 80/48, pulse 78, respirations 18, O2 sat 97%. GENERAL: Slept about 7 hours last night. The patient's appetite is fair. CURRENT MEDICATIONS: She is on Seroquel 50 mg twice a day, BuSpar 5 mg 3 times a day and olanzapine 2.5 mg q. 2 hours p.r.n. LABORATORY DATA: Reviewed. ASSESSMENT: 1. Bipolar disorder. 2. Dementia, mild unspecified. 3. Generalized anxiety disorder. 4. History of alcohol dependence. PLAN: To continue with the treatment. LENGTH OF STAY: 7 days. IDALMIS STARR MD DR: JARROD/celso JOB#: [id number] / [id number]
--- NOTE | 2020-09-20 22:53 | NUR ---
Pt sitting in day room, watching television when approached. Pt disorganized but calm and interactive this evening. Pt cooperative with assessment and compliant with medications administered whole. No agitation or aggression noted thus far this shift.
[2020-09-21] MEDS: LEVOTHYROXINE 50 MCG TABLET PO SCH (05:41)
[2020-09-21 05:53] VITALS: BP 173/89
[2020-09-21] MEDS: QUEtiapine 50 MG TABLET. PO SCH ×2 (08:38→20:30)
[2020-09-21] MEDS: busPIRone 5 MG TABLET. PO SCH ×3 (08:39→20:31)
[2020-09-21] MEDS: ASCORBIC ACID 500 MG TABLET PO SCH (08:39)
[2020-09-21] MEDS: MULTIVITAMIN with MINERAL TABLET. PO SCH (08:39)
[2020-09-21] MEDS: LACTOBACILLUS RHAMNOSUS GG 1 CAPSULE. PO SCH ×2 (08:39→20:31)
[2020-09-21] MEDS: NICOTINE 14MG PATCH. TD SCH (08:39)
[2020-09-21 16:35] VITALS: BP 109/54
--- NOTE | 2020-09-21 18:30 | NUR ---
Patient has been calm, disorganized, and pleasantly confused during this shift. She spent the majority of the morning withdrawn to her room; she did spend a large part of the afternoon in the day room participating in groups. Will continue to monitor and report to oncoming shift.
--- NOTE | 2020-09-21 23:00 | NUR ---
Patient is in h day room on assumption of care, watching television. She is disorganized, confused. Compliant with physical assessments but refused to answer orientation questions. Took her medications whole without issue. No agitation. She does not appear to be experiencing any pain or discomfort. Patient appears to be sleeping comfortably at present time. Will continue to monitor.
[2020-09-22 06:29] VITALS: BP 104/58
[2020-09-22] MEDS: ASCORBIC ACID 500 MG TABLET PO SCH (08:12)
[2020-09-22] MEDS: LEVOTHYROXINE 50 MCG TABLET PO SCH (08:12)
[2020-09-22] MEDS: LACTOBACILLUS RHAMNOSUS GG 1 CAPSULE. PO SCH ×2 (08:12→20:28)
[2020-09-22] MEDS: busPIRone 5 MG TABLET. PO SCH ×3 (08:12→20:28)
[2020-09-22] MEDS: QUEtiapine 50 MG TABLET. PO SCH ×2 (08:12→20:29)
[2020-09-22] MEDS: MULTIVITAMIN with MINERAL TABLET. PO SCH (08:12)
[2020-09-22] MEDS: NICOTINE 7MG PATCH. TD SCH (08:13)
--- NOTE | 2020-09-22 09:55 | NUR ---
Updated notes faxed to pt facility[facility]. Transmittal successful. Follow up call attempted to Natalie at [facility] for return call. SW then contacted pt DPOA, Lauren, and discussed recommendation for consult with neurosurgeon following [facility] discharge. SW reported to Lauren that pt will continue to remain in hospital for now to monitor psychotropic meds and further adjustments as needed. SW will follow up with facility and DPOA again next week.
[2020-09-22 16:24] VITALS: BP 173/88
--- NOTE | 2020-09-22 22:33 | PN ---
DATE: 09/22/2020 SUBJECTIVE: The patient was seen today, met with the staff, chart reviewed. Staff reports increased confusion, disorganized thinking, increased psychomotor activity and also gets agitated, involuntary movements. The patient is compliant with the medications. OBSERVATION: VITAL SIGNS: Temperature 97.4, blood pressure 164/58, pulse 77, respirations 18, O2 sat 95%. GENERAL: Slept about 6 hours last night. The patient's appetite is fair. CURRENT MEDICATIONS: Include Seroquel 50 mg twice a day, BuSpar 5 mg 3 times a day and olanzapine 2.5 mg q. 2 hours p.r.n. ASSESSMENT: 1. Bipolar disorder. 2. Dementia, mild unspecified. 3. Generalized anxiety disorder. 4. History of alcohol dependence. PLAN: To continue with the treatment. LENGTH OF STAY: 7 days. IDALMIS STARR MD DR: JARROD/celso JOB#: [id number] / [id number]
--- NOTE | 2020-09-22 22:43 | PN ---
DATE: 09/21/2020 SUBJECTIVE: The patient was seen today, met with the staff, chart reviewed. Staff reports some improvement. The patient is still hyperactive, restless, involuntary movements. The patient also has high level of anxiety. OBSERVATION: VITAL SIGNS: Temperature 97.6, blood pressure 173/89, pulse 69, respirations 22, O2 sat 100%. GENERAL: Slept about 6 hours last night. The patient's appetite is fair. MEDICATIONS: The patient's current medications include Seroquel 50 mg twice a day, BuSpar 5 mg 3 times a day and olanzapine 2.5 mg q. 2 hours p.r.n. LABORATORY DATA: The patient's lab reviewed. ASSESSMENT: 1. Bipolar disorder. 2. Dementia, unspecified. 3. Generalized anxiety disorder. 4. History of alcohol dependence. PLAN: To continue with the treatment. LENGTH OF STAY: 7 days. IDALMIS STARR MD DR: JARROD/celso JOB#: [id number] / [id number]
--- NOTE | 2020-09-22 23:59 | NUR ---
Patient is in the day room on assumption of care, watching television. She is disorganized, confused. Compliant with physical assessments but refused to answer orientation questions. Took her medications whole without issue. She was angry and resistive with HS cares and shower, but did eventually cooperate. She does not appear to be experiencing any pain or discomfort. Patient appears to be sleeping comfortably at present time. Will continue to monitor.
[2020-09-23 06:44] VITALS: BP 120/70
[2020-09-23] MEDS: LEVOTHYROXINE 50 MCG TABLET PO SCH (08:25)
[2020-09-23] MEDS: POLYETHYLENE GLYCOL 3350 17 GM PACKET. PO SCH (08:26)
[2020-09-23] MEDS: busPIRone 5 MG TABLET. PO SCH ×3 (08:26→21:01)
[2020-09-23] MEDS: QUEtiapine 50 MG TABLET. PO SCH ×2 (08:26→21:01)
[2020-09-23] MEDS: NICOTINE 7MG PATCH. TD SCH (08:26)
[2020-09-23] MEDS: ASCORBIC ACID 500 MG TABLET PO SCH (08:26)
[2020-09-23] MEDS: MULTIVITAMIN with MINERAL TABLET. PO SCH (08:26)
[2020-09-23] MEDS: LACTOBACILLUS RHAMNOSUS GG 1 CAPSULE. PO SCH ×2 (08:26→21:00)
[2020-09-23 15:42] VITALS: BP 102/54
--- NOTE | 2020-09-23 17:22 | NUR ---
Pt has been calm, cooperative, and pleasant during shift today. She was incontinent of bowel when shift first started and staff gave her a shower. Pt was very agitated during the shower but has not displayed any other behaviors this shift. Pt took meds whole this shift. Pt came down for all meals and ate well. She sat in the day room in between meals and was pleasant with other pts.
[2020-09-23] MEDS: traZODone 50 MG TABLET. PO PRN (21:01)
--- NOTE | 2020-09-24 01:49 | NUR ---
Pt pleasant and compliant with meds, continues to ambulate independently. Pills taken whole with minimal cueing.
[2020-09-24] MEDS: LEVOTHYROXINE 50 MCG TABLET PO SCH (05:33)
[2020-09-24 06:37] VITALS: BP 105/63
[2020-09-24] MEDS: busPIRone 5 MG TABLET. PO SCH ×3 (07:46→20:10)
[2020-09-24] MEDS: LACTOBACILLUS RHAMNOSUS GG 1 CAPSULE. PO SCH ×2 (07:46→20:09)
[2020-09-24] MEDS: NICOTINE 7MG PATCH. TD SCH (07:46)
[2020-09-24] MEDS: MULTIVITAMIN with MINERAL TABLET. PO SCH (07:47)
[2020-09-24] MEDS: ASCORBIC ACID 500 MG TABLET PO SCH (07:47)
[2020-09-24] MEDS: POLYETHYLENE GLYCOL 3350 17 GM PACKET. PO SCH (07:47)
[2020-09-24] MEDS: QUEtiapine 50 MG TABLET. PO SCH ×2 (07:47→20:09)
--- NOTE | 2020-09-24 15:39 | NUR ---
Pt calm, cooperative, and pleasant this shift. Ainsley took her meds whole this am; Miralax was held today due to three bowel movements yesterday 09/23. Ainsley ate both breakfast and lunch in the dining room and ate well. She sat outside and listened/sang along to music after breakfast and has been sitting in the day room since lunch.
[2020-09-24 15:52] VITALS: BP 94/64
--- NOTE | 2020-09-24 19:30 | NUR ---
Pt was located in the day room sitting in chair watching TV with other residents/staff members. Pt was pleasant and calm during for her assessment and medication pass. The pt was compliant with taking her medications whole and ate her HS snack independently. Pt was alert to self only. Pt denied pain or discomfort.
[2020-09-24] MEDS: traZODone 50 MG TABLET. PO PRN (20:09)
--- NOTE | 2020-09-24 22:29 | PDOC ---
Exam Note: Trey Note: Late entry for 09/23/20. Please also refer to the separate dictated note~for this date of service dictated separately.~Patient seen individually. Discussed the patient with Nursing staff reviewed the chart.~Reviewed interim history and current functioning. Reviewed vital signs,~Labs/ Radiology~and current medicat ions noted below. Continue current treatment with the changes noted in the dictated addendum note Assessment: Vital Signs/I&O: Vital Signs Date Time Temp Pulse Resp B/P (MAP) Pulse Ox O2 Delivery O2 Flow Rate FiO2 09/24/20 15:52 98.3 88 20 94/64 (74) 97 09/24/20 06:37 Room Air I & O 09/23/20 09/23/20 09/24/20 15:00 23:00 07:00 Intake Total 1500 ml 360 ml Balance 1500 ml 360 ml Current Medications: Meds: Current Medications Medications (Trade) Dose Ordered Sig/Jose M Route PRN Reason Start Time Stop Time Status Last Admin Dose Admin Olanzapine (ZyPREXA ZYDIS) 2.5 mg PRN Q2HR PRN PO PSYCHOSIS 09/08/20 22:15 09/14/20 06:54 Trazodone HCl (Desyrel) 50 mg PRN QHS PRN PO INSOMNIA 09/08/20 22:15 09/24/20 20:09 Buspirone HCl (Buspar) 5 mg TID PO 09/09/20 09:00 09/24/20 20:10 Quetiapine Fumarate (SEROquel) 50 mg BID PO 09/09/20 09:00 09/24/20 20:09 Ascorbic Acid (Vitamin C) 500 mg DAILY PO 09/09/20 09:00 09/24/20 07:47 Levothyroxine Sodium (Synthroid) 88 mcg DAILY06 PO 09/09/20 06:00 09/10/20 12:05 DC 09/09/20 04:40 Multivitamins/ Calcium (Thera-M Plus) 1 tab DAILY PO 09/09/20 09:00 09/24/20 07:47 Acetaminophen (Tylenol) 650 mg PRN Q6HRS PRN PO MILD PAIN / TEMP > 100.3'F 09/08/20 23:45 Multi-Ingredient Ointment (Analgesic [place]) 1 barrie PRN QID PRN TP MUSCLE PAIN 09/08/20 23:45 Al Hydroxide/Mg Hydroxide (Mylanta Plus Xs) 15 ml PRN AFTMEALHC PRN PO DYSPEPSIA 09/08/20 23:45 Magnesium Hydroxide (Milk Of Magnesia) 2,400 mg PRN QHS PRN PO CONSTIPATION 09/08/20 23:45 Nicotine (Nicoderm Cq 14mg Patch) 1 patch DAILY TD 09/09/20 09:00 09/21/20 22:52 DC 09/21/20 08:39 Levothyroxine Sodium (Synthroid) 50 mcg DAILY06 PO 09/11/20 06:00 09/24/20 05:33 Amoxicillin (Amoxil) 250 mg [id number] PO 09/11/20 21:00 09/18/20 21:00 DC 09/18/20 20:13 Clonazepam (KlonoPIN) 0.5 mg BID PO 09/13/20 21:00 09/16/20 17:33 DC 09/16/20 08:23 Diazepam (Valium) 5 mg 1X ONCE PO 09/14/20 06:00 09/14/20 06:01 DC 09/14/20 06:00 Lactobacillus Rhamnosus (Culturelle) 1 cap BID PO 09/14/20 09:00 09/24/20 20:09 Nicotine (Nicoderm Cq 7mg Patch) 1 patch DAILY TD 09/22/20 09:00 10/06/20 11:00 09/24/20 07:46 Polyethylene Glycol (miraLAX) 17 gm DAILY PO 09/23/20 09:00 I have reviewed the current psychotropics carefully including drug interactions. Risk benefit ratio favors no change other than as noted in my dictated progress note. Diagnosis: Problems: (1) Bipolar affective disorder, mixed (2) Anxiety disorder, unspecified OSMANI WASHINGTON MD Sep 24, 2020 22:29
--- NOTE | 2020-09-24 22:30 | PDOC ---
Exam Note: Trey Note: Please also refer to the separate dictated note~for this date of service dictated separately.~Patient seen individually. Discussed the patient with Nursing staff reviewed the chart.~Reviewed interim history and current functioning. Reviewed vital signs,~Labs/ Radiology~and current medications noted below. Continue current treatment with the changes noted in the dictated addendum note Assessment: Vital Signs/I&O: Vital Signs Date Time Temp Pulse Resp B/P (MAP) Pulse Ox O2 Delivery O2 Flow Rate FiO2 09/24/20 15:52 98.3 88 20 94/64 (74) 97 09/24/20 06:37 Room Air I & O 09/23/20 09/23/20 09/24/20 15:00 23:00 07:00 Intake Total 1500 ml 360 ml Balance 1500 ml 360 ml Current Medications: Meds: Current Medications Medications (Trade) Dose Ordered Sig/Jose M Route PRN Reason Start Time Stop Time Status Last Admin Dose Admin Olanzapine (ZyPREXA ZYDIS) 2.5 mg PRN Q2HR PRN PO PSYCHOSIS 09/08/20 22:15 09/14/20 06:54 Trazodone HCl (Desyrel) 50 mg PRN QHS PRN PO INSOMNIA 09/08/20 22:15 09/24/20 20:09 Buspirone HCl (Buspar) 5 mg TID PO 09/09/20 09:00 09/24/20 20:10 Quetiapine Fumarate (SEROquel) 50 mg BID PO 09/09/20 09:00 09/24/20 20:09 Ascorbic Acid (Vitamin C) 500 mg DAILY PO 09/09/20 09:00 09/24/20 07:47 Levothyroxine Sodium (Synthroid) 88 mcg DAILY06 PO 09/09/20 06:00 09/10/20 12:05 DC 09/09/20 04:40 Multivitamins/ Calcium (Thera-M Plus) 1 tab DAILY PO 09/09/20 09:00 09/24/20 07:47 Acetaminophen (Tylenol) 650 mg PRN Q6HRS PRN PO MILD PAIN / TEMP > 100.3'F 09/08/20 23:45 Multi-Ingredient Ointment (Analgesic [place]) 1 barrie PRN QID PRN TP MUSCLE PAIN 09/08/20 23:45 Al Hydroxide/Mg Hydroxide (Mylanta Plus Xs) 15 ml PRN AFTMEALHC PRN PO DYSPEPSIA 09/08/20 23:45 Magnesium Hydroxide (Milk Of Magnesia) 2,400 mg PRN QHS PRN PO CONSTIPATION 09/08/20 23:45 Nicotine (Nicoderm Cq 14mg Patch) 1 patch DAILY TD 09/09/20 09:00 09/21/20 22:52 DC 09/21/20 08:39 Levothyroxine Sodium (Synthroid) 50 mcg DAILY06 PO 09/11/20 06:00 09/24/20 05:33 Amoxicillin (Amoxil) 250 mg [id number] PO 09/11/20 21:00 09/18/20 21:00 DC 09/18/20 20:13 Clonazepam (KlonoPIN) 0.5 mg BID PO 09/13/20 21:00 09/16/20 17:33 DC 09/16/20 08:23 Diazepam (Valium) 5 mg 1X ONCE PO 09/14/20 06:00 09/14/20 06:01 DC 09/14/20 06:00 Lactobacillus Rhamnosus (Culturelle) 1 cap BID PO 09/14/20 09:00 09/24/20 20:09 Nicotine (Nicoderm Cq 7mg Patch) 1 patch DAILY TD 09/22/20 09:00 10/06/20 11:00 09/24/20 07:46 Polyethylene Glycol (miraLAX) 17 gm DAILY PO 09/23/20 09:00 I have reviewed the current psychotropics carefully including drug interactions. Risk benefit ratio favors no change other than as noted in my dictated progress note. Diagnosis: Problems: (1) Bipolar affective disorder, mixed (2) Anxiety disorder, unspecified OSMANI WASHINGTON MD Sep 24, 2020 22:30
[2020-09-25] MEDS: LEVOTHYROXINE 50 MCG TABLET PO SCH (05:57)
[2020-09-25 06:23] VITALS: BP 125/79
--- NOTE | 2020-09-25 07:43 | PDOC ---
Exam Note: Trey Note: This note is a late entry for 09/23/2020 covers elements not covered in my initial note. Subjective: Dr. Lynn had covered for me from 09 September till September, and I assumed care of the patients from 23 September. I have reviewed information and interim progress notes at some length with Dr. Lynn. The patient was seen individually in the evening of 09/23/2020 with Lyla GILLILAND, discussed and reviewed the chart. The patient slept 5-1/2 hours previous night. She has been incontinent of bowels. She then took a shower, was calmer after that. Review of Systems: Ambulation impaired in wheelchair. No CV, , pulmonary, eye system symptoms on review. Reliability poor. Mental Status Exam: The patient is oriented to herself. Insight and judgment, recent and remote memory, attention and concentration, fund of knowledge is poor consistent with her diagnoses. Laboratory Data: Reviewed. Impression: Major neurocognitive disorder Alzheimer vascular with delusion, depression, behavioral disturbance. Anxiety disorder unspecified. Impulse control disorder unspecified. Plan: I have carefully reviewed the current psychotropics and drug interactions. Continue current psychotropics. Continue Seroquel, BuSpar, Zyprexa p.r.n., trazodone p.r.n. Adjust further as clinically indicated. Assessment: Vital Signs/I&O: Vital Signs Date Time Temp Pulse Resp B/P (MAP) Pulse Ox O2 Delivery O2 Flow Rate FiO2 09/25/20 06:23 84 18 125/79 (94) 09/24/20 15:52 98.3 97 09/24/20 06:37 Room Air I & O 09/24/20 09/24/20 09/25/20 15:00 23:00 07:00 Intake Total 680 ml 445 ml Balance 680 ml 445 ml Current Medications: Meds: Current Medications Medications (Trade) Dose Ordered Sig/Jose M Route PRN Reason Start Time Stop Time Status Last Admin Dose Admin Olanzapine (ZyPREXA ZYDIS) 2.5 mg PRN Q2HR PRN PO PSYCHOSIS 09/08/20 22:15 09/14/20 06:54 Trazodone HCl (Desyrel) 50 mg PRN QHS PRN PO INSOMNIA 09/08/20 22:15 09/24/20 20:09 Buspirone HCl (Buspar) 5 mg TID PO 09/09/20 09:00 09/24/20 20:10 Quetiapine Fumarate (SEROquel) 50 mg BID PO 09/09/20 09:00 09/24/20 20:09 Ascorbic Acid (Vitamin C) 500 mg DAILY PO 09/09/20 09:00 09/24/20 07:47 Levothyroxine Sodium (Synthroid) 88 mcg DAILY06 PO 09/09/20 06:00 09/10/20 12:05 DC 09/09/20 04:40 Multivitamins/ Calcium (Thera-M Plus) 1 tab DAILY PO 09/09/20 09:00 09/24/20 07:47 Acetaminophen (Tylenol) 650 mg PRN Q6HRS PRN PO MILD PAIN / TEMP > 100.3'F 09/08/20 23:45 Multi-Ingredient Ointment (Analgesic [place]) 1 barrie PRN QID PRN TP MUSCLE PAIN 09/08/20 23:45 Al Hydroxide/Mg Hydroxide (Mylanta Plus Xs) 15 ml PRN AFTMEALHC PRN PO DYSPEPSIA 09/08/20 23:45 Magnesium Hydroxide (Milk Of Magnesia) 2,400 mg PRN QHS PRN PO CONSTIPATION 09/08/20 23:45 Nicotine (Nicoderm Cq 14mg Patch) 1 patch DAILY TD 09/09/20 09:00 09/21/20 22:52 DC 09/21/20 08:39 Levothyroxine Sodium (Synthroid) 50 mcg DAILY06 PO 09/11/20 06:00 09/25/20 05:57 Amoxicillin (Amoxil) 250 mg [id number] PO 09/11/20 21:00 09/18/20 21:00 DC 09/18/20 20:13 Clonazepam (KlonoPIN) 0.5 mg BID PO 09/13/20 21:00 09/16/20 17:33 DC 09/16/20 08:23 Diazepam (Valium) 5 mg 1X ONCE PO 09/14/20 06:00 09/14/20 06:01 DC 09/14/20 06:00 Lactobacillus Rhamnosus (Culturelle) 1 cap BID PO 09/14/20 09:00 09/24/20 20:09 Nicotine (Nicoderm Cq 7mg Patch) 1 patch DAILY TD 09/22/20 09:00 10/06/20 11:00 09/24/20 07:46 Polyethylene Glycol (miraLAX) 17 gm DAILY PO 09/23/20 09:00 I have reviewed the current psychotropics carefully including drug interactions. Risk benefit ratio favors no change other than as noted in my dictated progress note. Diagnosis: Problems: (1) Major neurocognitive disorder (2) Dementia in Alzheimer's disease with delusions (3) Dementia in Alzheimer's disease with depression (4) Dementia of the Alzheimer's type with early onset with behavioral disturbance (5) Dementia, vascular, with delusions (6) Dementia, vascular, with depression (7) Impulse control disorder, unspecified (8) Anxiety disorder, unspecified OSMANI WASHINGTON MD Sep 25, 2020 07:43
--- NOTE | 2020-09-25 08:13 | PDOC ---
Exam Note: Trey Note: This note is a late entry for 09/24/2020 covers elements not covered in my initial note. Subjective: The patient was seen individually in the evening of 09/24/2020 with Lyla GILLILAND, discussed and reviewed the chart. The patient slept 7 hours previous night. She is pleasant. No aggression noted. She was singing to music earlier in the day. Review of Systems: Ambulation impaired in wheelchair. No CV, , pulmonary, eye system symptoms on review. Reliability poor. Mental Status Exam: The patient is oriented to herself. Insight and judgment, recent and remote memory, attention and concentration, fund of knowledge is poor consistent with her diagnoses. Laboratory Data: Reviewed. Impression: Major neurocognitive disorder Alzheimer vascular with delusion, depression, behavioral disturbance. Anxiety disorder unspecified. Impulse control disorder unspecified. Plan: Continue current psychotropics. Assessment: Vital Signs/I&O: Vital Signs Date Time Temp Pulse Resp B/P (MAP) Pulse Ox O2 Delivery O2 Flow Rate FiO2 09/25/20 06:23 84 18 125/79 (94) 09/24/20 15:52 98.3 97 09/24/20 06:37 Room Air I & O 09/24/20 09/24/20 09/25/20 15:00 23:00 07:00 Intake Total 680 ml 445 ml Balance 680 ml 445 ml Current Medications: Meds: Current Medications Medications (Trade) Dose Ordered Sig/Jose M Route PRN Reason Start Time Stop Time Status Last Admin Dose Admin Olanzapine (ZyPREXA ZYDIS) 2.5 mg PRN Q2HR PRN PO PSYCHOSIS 09/08/20 22:15 09/14/20 06:54 Trazodone HCl (Desyrel) 50 mg PRN QHS PRN PO INSOMNIA 09/08/20 22:15 09/24/20 20:09 Buspirone HCl (Buspar) 5 mg TID PO 09/09/20 09:00 09/24/20 20:10 Quetiapine Fumarate (SEROquel) 50 mg BID PO 09/09/20 09:00 09/24/20 20:09 Ascorbic Acid (Vitamin C) 500 mg DAILY PO 09/09/20 09:00 09/24/20 07:47 Levothyroxine Sodium (Synthroid) 88 mcg DAILY06 PO 09/09/20 06:00 09/10/20 12:05 DC 09/09/20 04:40 Multivitamins/ Calcium (Thera-M Plus) 1 tab DAILY PO 09/09/20 09:00 09/24/20 07:47 Acetaminophen (Tylenol) 650 mg PRN Q6HRS PRN PO MILD PAIN / TEMP > 100.3'F 09/08/20 23:45 Multi-Ingredient Ointment (Analgesic [place]) 1 barrie PRN QID PRN TP MUSCLE PAIN 09/08/20 23:45 Al Hydroxide/Mg Hydroxide (Mylanta Plus Xs) 15 ml PRN AFTMEALHC PRN PO DYSPEPSIA 09/08/20 23:45 Magnesium Hydroxide (Milk Of Magnesia) 2,400 mg PRN QHS PRN PO CONSTIPATION 09/08/20 23:45 Nicotine (Nicoderm Cq 14mg Patch) 1 patch DAILY TD 09/09/20 09:00 09/21/20 22:52 DC 09/21/20 08:39 Levothyroxine Sodium (Synthroid) 50 mcg DAILY06 PO 09/11/20 06:00 09/25/20 05:57 Amoxicillin (Amoxil) 250 mg [id number] PO 09/11/20 21:00 09/18/20 21:00 DC 09/18/20 20:13 Clonazepam (KlonoPIN) 0.5 mg BID PO 09/13/20 21:00 09/16/20 17:33 DC 09/16/20 08:23 Diazepam (Valium) 5 mg 1X ONCE PO 09/14/20 06:00 09/14/20 06:01 DC 09/14/20 06:00 Lactobacillus Rhamnosus (Culturelle) 1 cap BID PO 09/14/20 09:00 09/24/20 20:09 Nicotine (Nicoderm Cq 7mg Patch) 1 patch DAILY TD 09/22/20 09:00 10/06/20 11:00 09/24/20 07:46 Polyethylene Glycol (miraLAX) 17 gm DAILY PO 09/23/20 09:00 I have reviewed the current psychotropics carefully including drug interactions. Risk benefit ratio favors no change other than as noted in my dictated progress note. Diagnosis: Problems: (1) Anxiety disorder, unspecified (2) Impulse control disorder, unspecified (3) Dementia, vascular, with depression (4) Dementia, vascular, with delusions (5) Dementia in Alzheimer's disease with depression (6) Dementia in Alzheimer's disease with delusions (7) Dementia of the Alzheimer's type with early onset with behavioral disturbance (8) Major neurocognitive disorder OSMANI WASHINGTON MD Sep 25, 2020 08:13
[2020-09-25] MEDS: POLYETHYLENE GLYCOL 3350 17 GM PACKET. PO SCH (09:00)
--- NOTE | 2020-09-25 09:45 | NUR ---
Patient was agitated in dining room at breakfast and threw her tray on the floor. Patient escorted back to her room at that time. When approached with her morning medications, patient stated 'Leave me the fuck alone.' Will hold morning medications at this time and continue to monitor.
[2020-09-25] MEDS: MULTIVITAMIN with MINERAL TABLET. PO SCH (12:27)
[2020-09-25] MEDS: ASCORBIC ACID 500 MG TABLET PO SCH (12:27)
[2020-09-25] MEDS: LACTOBACILLUS RHAMNOSUS GG 1 CAPSULE. PO SCH ×2 (12:27→20:03)
[2020-09-25] MEDS: QUEtiapine 50 MG TABLET. PO SCH ×2 (12:27→20:04)
[2020-09-25] MEDS: busPIRone 5 MG TABLET. PO SCH ×3 (12:27→20:03)
[2020-09-25] MEDS: NICOTINE 7MG PATCH. TD SCH (12:28)
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
--- NOTE | 2020-09-25 14:15 | NUR ---
WEEKLY ACTIVITY THERAPY NOTE Date of Admission: 09/08/20 Date of AT Assessment: 09/11 Precipitating behaviors that initiated intake and admission: pt belligerent, refusing cares/showers, becoming combative and swinging at staff, agitated, anxious, verbally abusive, and name calling. Goal aimed:increase socialization and engagement Initial Goal:Pt will participate in at least one individual or group Activity Therapy session before discharge. Goal changed 09/18: Pt will participate in at least three individual or group Activity Therapy session per week. Weekly progress towards goal: did not achieve, 2/3 Group participation level: 1 min, 1 mod Weekly highlights: tossed egged independently far distances during egg toss group Friday afternoon Behaviors observed: withdrawn to room, limited interest in groups Plan: no change to goal Beneficial adaptations:
--- NOTE | 2020-09-25 15:18 | NUR ---
TODD contacted pt Lauren flores, to give update. Lauren appreciative of call. SW attempted call and left voice message for Natalie to give update and ensure that fax was received from last week. TODD will call Natalie back at another time.
[2020-09-25 16:10] VITALS: BP 84/52
[2020-09-25] MEDS: traZODone 50 MG TABLET. PO PRN (20:03)
--- NOTE | 2020-09-25 21:00 | NUR ---
PT GIVEN PRN TRAZODONE WITH HS PILLS TO AID SLEEP.
--- NOTE | 2020-09-25 22:19 | PDOC ---
Exam Note: Trey Note: Please also refer to the separate dictated note~for this date of service dictated separately.~Patient seen individually. Discussed the patient with Nursing staff reviewed the chart.~Reviewed interim history and current functioning. Reviewed vital signs,~Labs/ Radiology~and current medications noted below. Continue current treatment with the changes noted in the dictated addendum note Assessment: Vital Signs/I&O: Vital Signs Date Time Temp Pulse Resp B/P (MAP) Pulse Ox O2 Delivery O2 Flow Rate FiO2 09/25/20 16:10 98.6 88 20 84/52 (63) 93 09/24/20 06:37 Room Air I & O 09/24/20 09/24/20 09/25/20 15:00 23:00 07:00 Intake Total 680 ml 445 ml Balance 680 ml 445 ml Current Medications: Meds: Current Medications Medications (Trade) Dose Ordered Sig/Jose M Route PRN Reason Start Time Stop Time Status Last Admin Dose Admin Olanzapine (ZyPREXA ZYDIS) 2.5 mg PRN Q2HR PRN PO PSYCHOSIS 09/08/20 22:15 09/14/20 06:54 Trazodone HCl (Desyrel) 50 mg PRN QHS PRN PO INSOMNIA 09/08/20 22:15 09/25/20 20:03 Buspirone HCl (Buspar) 5 mg TID PO 09/09/20 09:00 09/25/20 20:03 Quetiapine Fumarate (SEROquel) 50 mg BID PO 09/09/20 09:00 09/25/20 20:04 Ascorbic Acid (Vitamin C) 500 mg DAILY PO 09/09/20 09:00 09/25/20 12:27 Levothyroxine Sodium (Synthroid) 88 mcg DAILY06 PO 09/09/20 06:00 09/10/20 12:05 DC 09/09/20 04:40 Multivitamins/ Calcium (Thera-M Plus) 1 tab DAILY PO 09/09/20 09:00 09/25/20 12:27 Acetaminophen (Tylenol) 650 mg PRN Q6HRS PRN PO MILD PAIN / TEMP > 100.3'F 09/08/20 23:45 Multi-Ingredient Ointment (Analgesic [place]) 1 barrie PRN QID PRN TP MUSCLE PAIN 09/08/20 23:45 Al Hydroxide/Mg Hydroxide (Mylanta Plus Xs) 15 ml PRN AFTMEALHC PRN PO DYSPEPSIA 09/08/20 23:45 Magnesium Hydroxide (Milk Of Magnesia) 2,400 mg PRN QHS PRN PO CONSTIPATION 09/08/20 23:45 Nicotine (Nicoderm Cq 14mg Patch) 1 patch DAILY TD 09/09/20 09:00 09/21/20 22:52 DC 09/21/20 08:39 Levothyroxine Sodium (Synthroid) 50 mcg DAILY06 PO 09/11/20 06:00 09/25/20 05:57 Amoxicillin (Amoxil) 250 mg [id number] PO 09/11/20 21:00 09/18/20 21:00 DC 09/18/20 20:13 Clonazepam (KlonoPIN) 0.5 mg BID PO 09/13/20 21:00 09/16/20 17:33 DC 09/16/20 08:23 Diazepam (Valium) 5 mg 1X ONCE PO 09/14/20 06:00 09/14/20 06:01 DC 09/14/20 06:00 Lactobacillus Rhamnosus (Culturelle) 1 cap BID PO 09/14/20 09:00 09/25/20 20:03 Nicotine (Nicoderm Cq 7mg Patch) 1 patch DAILY TD 09/22/20 09:00 10/06/20 11:00 09/25/20 12:28 Polyethylene Glycol (miraLAX) 17 gm DAILY PO 09/23/20 09:00 I have reviewed the current psychotropics carefully including drug interactions. Risk benefit ratio favors no change other than as noted in my dictated progress note. Diagnosis: Problems: (1) Bipolar affective disorder, mixed (2) Anxiety disorder, unspecified (3) Impulse control disorder, unspecified (4) Dementia, vascular, with depression (5) Dementia, vascular, with delusions (6) Dementia in Alzheimer's disease with depression (7) Dementia in Alzheimer's disease with delusions (8) Dementia of the Alzheimer's type with early onset with behavioral disturbance (9) Major neurocognitive disorder OSMANI WASHINGTON MD Sep 25, 2020 22:19
--- NOTE | 2020-09-26 06:06 | NUR ---
PT RESISTIVE TO CARES THIS AM. FIGHTING AND YELLING OUT PROFANITIES WHILE CHANGING SOILED BRIEF. PT CALMED DIRECTLY AFTER INTERACTION. REFUSED TO TAKE SYNTHROID AT THIS TIME. WILL INFORM ONCOMING RN TO TRY AGAIN WITH MORNING PILLS.
--- NOTE | 2020-09-26 08:51 | PDOC ---
Exam Note: Trey Note: This note is a late entry for 09/25/2020 covers elements not covered in my initial note. Subjective: The patient was reviewed in the morning of 09/25/2020 for a treatment team meeting with Maggie Dunne, Eri Chao and Penny (social sciences chair), Angella, activity therapy and Louis GILLILAND, discussed and reviewed the chart. The patient slept 7-1/4 hours previous night. Appetite is 75%. She is somewhat withdrawn. She does have hydrocephalus on CT head. We will defer to Dr. Bravo and towards evening she did better, more social. Review of Systems: Ambulation impaired in wheelchair. No CV, , pulmonary, eye system symptoms on review. Mental Status Exam: The patient is oriented to herself. Insight and judgment, recent and remote memory, attention and concentration, fund of knowledge is poor consistent with her diagnoses. Laboratory Data: Reviewed. Impression: Major neurocognitive disorder Alzheimer vascular with delusion, depression, behavioral disturbance. Anxiety disorder unspecified. Impulse control disorder unspecified. Plan: Maintain current psychotropics. Adjust further as clinically indicated. Assessment: Vital Signs/I&O: Vital Signs Date Time Temp Pulse Resp B/P (MAP) Pulse Ox O2 Delivery O2 Flow Rate FiO2 09/25/20 16:10 98.6 88 20 84/52 (63) 93 09/24/20 06:37 Room Air I & O 09/25/20 09/25/20 09/26/20 15:00 23:00 07:00 Intake Total 120 ml 480 ml Balance 120 ml 480 ml Current Medications: Meds: Current Medications Medications (Trade) Dose Ordered Sig/Jose M Route PRN Reason Start Time Stop Time Status Last Admin Dose Admin Olanzapine (ZyPREXA ZYDIS) 2.5 mg PRN Q2HR PRN PO PSYCHOSIS 09/08/20 22:15 09/14/20 06:54 Trazodone HCl (Desyrel) 50 mg PRN QHS PRN PO INSOMNIA 09/08/20 22:15 09/25/20 20:03 Buspirone HCl (Buspar) 5 mg TID PO 09/09/20 09:00 09/25/20 20:03 Quetiapine Fumarate (SEROquel) 50 mg BID PO 09/09/20 09:00 09/25/20 20:04 Ascorbic Acid (Vitamin C) 500 mg DAILY PO 09/09/20 09:00 09/25/20 12:27 Levothyroxine Sodium (Synthroid) 88 mcg DAILY06 PO 09/09/20 06:00 09/10/20 12:05 DC 09/09/20 04:40 Multivitamins/ Calcium (Thera-M Plus) 1 tab DAILY PO 09/09/20 09:00 09/25/20 12:27 Acetaminophen (Tylenol) 650 mg PRN Q6HRS PRN PO MILD PAIN / TEMP > 100.3'F 09/08/20 23:45 Multi-Ingredient Ointment (Analgesic [place]) 1 barrie PRN QID PRN TP MUSCLE PAIN 09/08/20 23:45 Al Hydroxide/Mg Hydroxide (Mylanta Plus Xs) 15 ml PRN AFTMEALHC PRN PO DYSPEPSIA 09/08/20 23:45 Magnesium Hydroxide (Milk Of Magnesia) 2,400 mg PRN QHS PRN PO CONSTIPATION 09/08/20 23:45 Nicotine (Nicoderm Cq 14mg Patch) 1 patch DAILY TD 09/09/20 09:00 09/21/20 22:52 DC 09/21/20 08:39 Levothyroxine Sodium (Synthroid) 50 mcg DAILY06 PO 09/11/20 06:00 09/25/20 05:57 Amoxicillin (Amoxil) 250 mg [id number] PO 09/11/20 21:00 09/18/20 21:00 DC 09/18/20 20:13 Clonazepam (KlonoPIN) 0.5 mg BID PO 09/13/20 21:00 09/16/20 17:33 DC 09/16/20 08:23 Diazepam (Valium) 5 mg 1X ONCE PO 09/14/20 06:00 09/14/20 06:01 DC 09/14/20 06:00 Lactobacillus Rhamnosus (Culturelle) 1 cap BID PO 09/14/20 09:00 09/25/20 20:03 Nicotine (Nicoderm Cq 7mg Patch) 1 patch DAILY TD 09/22/20 09:00 10/06/20 11:00 09/25/20 12:28 Polyethylene Glycol (miraLAX) 17 gm DAILY PO 09/23/20 09:00 I have reviewed the current psychotropics carefully including drug interactions. Risk benefit ratio favors no change other than as noted in my dictated progress note. Diagnosis: Problems: (1) Bipolar affective disorder, mixed (2) Anxiety disorder, unspecified (3) Impulse control disorder, unspecified (4) Dementia, vascular, with depression (5) Dementia, vascular, with delusions (6) Dementia in Alzheimer's disease with depression (7) Dementia in Alzheimer's disease with delusions (8) Dementia of the Alzheimer's type with early onset with behavioral disturbance (9) Major neurocognitive disorder OSMANI WASHINGTON MD Sep 26, 2020 08:51
[2020-09-26] MEDS: NICOTINE 7MG PATCH. TD SCH (10:18)
[2020-09-26] MEDS: LEVOTHYROXINE 50 MCG TABLET PO SCH (10:19)
[2020-09-26] MEDS: busPIRone 5 MG TABLET. PO SCH ×3 (10:19→20:02)
[2020-09-26] MEDS: LACTOBACILLUS RHAMNOSUS GG 1 CAPSULE. PO SCH ×2 (10:19→20:02)
[2020-09-26] MEDS: QUEtiapine 50 MG TABLET. PO SCH ×2 (10:19→20:02)
[2020-09-26] MEDS: MULTIVITAMIN with MINERAL TABLET. PO SCH (10:19)
[2020-09-26] MEDS: ASCORBIC ACID 500 MG TABLET PO SCH (10:19)
[2020-09-26] MEDS: POLYETHYLENE GLYCOL 3350 17 GM PACKET. PO SCH (10:19)
--- NOTE | 2020-09-26 11:31 | PN ---
DATE: 09/18/2020 SUBJECTIVE: The patient denies any new medical or neurological complaints. She continues to have abnormal involuntarily movements of the upper and lower extremities and has tendency to fall. OBJECTIVE: GENERAL: Well-developed, well-nourished female, not in acute distress. VITAL SIGNS: Blood pressure 104/67, respiratory rate 16, pulse is 83, temperature 98.4, and oxygen saturation 95% on room air. HEENT: Normocephalic, atraumatic, otherwise unremarkable. NECK: Supple. Negative for carotid bruit, lymphadenopathy, or thyromegaly. LUNGS: Clear to A and P. CARDIOVASCULAR: Regular rate and rhythm, normal S1, S2. ABDOMEN: Soft. Bowel sounds positive. EXTREMITIES: Negative for cyanosis, clubbing, or pitting edema. NEUROLOGIC EXAM: Mental Status: The patient is alert and oriented to herself and situation. Speech is fluent. No language dysfunction. Memory, judgment, and abstract thinking are fair. The patient denies hallucination or delusion. Cranial nerves are intact. Motor examination: No focal muscle bulk wasting. The strength was 4/5 throughout. The patient continues to have choreic type of movements of the upper and lower extremities. Gait: Tandem gait is difficult. Deep tendon reflexes were hypoactive with absent Achilles responses. Gait, the patient has involuntarily movement as described above and she is unsteady and has tendency to fall. LABORATORY DATA: From 09/16/2020 revealed sodium of 142, potassium 4.1, chloride 106, CO2 of 22, ____, glucose 204, calcium 9. CBC revealed white blood cells of 6.6 thousand, hemoglobin 13.5, hematocrit is 41.2, platelet count 226,000. Coagulation: D-dimer is high at 2.15. Urinalysis revealed white blood cells of 5-10 with many bacteria, but negative urinary leukocyte esterase and negative for nitrite. The urine culture on the day of admission revealed more than 100,000 aerobic cocci and suggestive of urinary tract infections. IMPRESSION: 1. Dementia. 2. Bipolar disorders with generalized anxiety disorder. 3. Involuntarily movement, etiology uncertain, probably due to normal pressure hydrocephalus. 4. History of alcohol dependency. RECOMMENDATIONS: 1. Continue with current medical and psychiatric care including physical therapy as tolerated. 2. To have a neurosurgical consult on outpatient basis to evaluate her for hydrocephalus and possible surgical intervention. M Gail DEMARCO MD DR: TAMARA/celso JOB#: [id number] / [id number] [place]
[2020-09-26 16:23] VITALS: BP 98/51
--- NOTE | 2020-09-26 18:30 | NUR ---
Patient has been calm, disorganized, and pleasantly confused during this shift. She was social and interactive throughout the day; she did spend a large part of the afternoon in the day room participating in groups. Will continue to monitor and report to oncoming shift.
--- NOTE | 2020-09-26 22:01 | PDOC ---
Exam Note: Trey Note: Please also refer to the separate dictated note~for this date of service dictated separately.~Patient seen individually. Discussed the patient with Nursing staff reviewed the chart.~Reviewed interim history and current functioning. Reviewed vital signs,~Labs/ Radiology~and current medications noted below. Continue current treatment with the changes noted in the dictated addendum note Assessment: Vital Signs/I&O: Vital Signs Date Time Temp Pulse Resp B/P (MAP) Pulse Ox O2 Delivery O2 Flow Rate FiO2 09/26/20 16:23 97.5 75 20 98/51 (67) 96 09/24/20 06:37 Room Air I & O 09/25/20 09/25/20 09/26/20 15:00 23:00 07:00 Intake Total 120 ml 480 ml Balance 120 ml 480 ml Current Medications: Meds: Current Medications Medications (Trade) Dose Ordered Sig/Jose M Route PRN Reason Start Time Stop Time Status Last Admin Dose Admin Olanzapine (ZyPREXA ZYDIS) 2.5 mg PRN Q2HR PRN PO PSYCHOSIS 09/08/20 22:15 09/14/20 06:54 Trazodone HCl (Desyrel) 50 mg PRN QHS PRN PO INSOMNIA 09/08/20 22:15 09/25/20 20:03 Buspirone HCl (Buspar) 5 mg TID PO 09/09/20 09:00 09/26/20 20:02 Quetiapine Fumarate (SEROquel) 50 mg BID PO 09/09/20 09:00 09/26/20 20:02 Ascorbic Acid (Vitamin C) 500 mg DAILY PO 09/09/20 09:00 09/26/20 10:19 Levothyroxine Sodium (Synthroid) 88 mcg DAILY06 PO 09/09/20 06:00 09/10/20 12:05 DC 09/09/20 04:40 Multivitamins/ Calcium (Thera-M Plus) 1 tab DAILY PO 09/09/20 09:00 09/26/20 10:19 Acetaminophen (Tylenol) 650 mg PRN Q6HRS PRN PO MILD PAIN / TEMP > 100.3'F 09/08/20 23:45 Multi-Ingredient Ointment (Analgesic [place]) 1 barrie PRN QID PRN TP MUSCLE PAIN 09/08/20 23:45 Al Hydroxide/Mg Hydroxide (Mylanta Plus Xs) 15 ml PRN AFTMEALHC PRN PO DYSPEPSIA 09/08/20 23:45 Magnesium Hydroxide (Milk Of Magnesia) 2,400 mg PRN QHS PRN PO CONSTIPATION 09/08/20 23:45 Nicotine (Nicoderm Cq 14mg Patch) 1 patch DAILY TD 09/09/20 09:00 09/21/20 22:52 DC 09/21/20 08:39 Levothyroxine Sodium (Synthroid) 50 mcg DAILY06 PO 09/11/20 06:00 09/26/20 10:19 Amoxicillin (Amoxil) 250 mg [id number] PO 09/11/20 21:00 09/18/20 21:00 DC 09/18/20 20:13 Clonazepam (KlonoPIN) 0.5 mg BID PO 09/13/20 21:00 09/16/20 17:33 DC 09/16/20 08:23 Diazepam (Valium) 5 mg 1X ONCE PO 09/14/20 06:00 09/14/20 06:01 DC 09/14/20 06:00 Lactobacillus Rhamnosus (Culturelle) 1 cap BID PO 09/14/20 09:00 09/26/20 20:02 Nicotine (Nicoderm Cq 7mg Patch) 1 patch DAILY TD 09/22/20 09:00 10/06/20 11:00 09/26/20 10:18 Polyethylene Glycol (miraLAX) 17 gm DAILY PO 09/23/20 09:00 09/26/20 10:19 Sertraline HCl (Zoloft) 25 mg DAILY PO 09/27/20 09:00 09/29/20 23:50 Sertraline HCl (Zoloft) 50 mg DAILY PO 09/30/20 09:00 I have reviewed the current psychotropics carefully including drug interactions. Risk benefit ratio favors no change other than as noted in my dictated progress note. Diagnosis: Problems: (1) Bipolar affective disorder, mixed (2) Anxiety disorder, unspecified (3) Impulse control disorder, unspecified (4) Dementia, vascular, with depression (5) Dementia, vascular, with delusions (6) Dementia in Alzheimer's disease with depression (7) Dementia in Alzheimer's disease with delusions (8) Dementia of the Alzheimer's type with early onset with behavioral d isturbance (9) Major neurocognitive disorder OSMANI WASHINGTON MD Sep 26, 2020 22:01
--- NOTE | 2020-09-27 00:14 | NUR ---
Nursing Note Pt in day room, withdrawn to self, calm and cooperative. Movements to her upper extremities have significantly reduced and pt is able to hold a glass of water herself and her meds without throwing them. Pt in day room watching TV social. No agitation.
[2020-09-27] MEDS: LEVOTHYROXINE 50 MCG TABLET PO SCH (06:05)
[2020-09-27 06:38] VITALS: BP 115/70
--- NOTE | 2020-09-27 07:48 | PDOC ---
Exam Note: Trey Note: This note is a late entry for 09/26/2020 covers elements not covered in my initial note. Subjective: The patient was seen individually in the evening of 09/26/2020 with Louis GILLILAND, discussed and reviewed the chart. The patient slept 6-1/2 hours previous night. Per nursing report she has one day thats good but the next is bad. Yesterday she had great difficulty but today she is agitated when her vitals were being checked, combative but then better after that. Review of Systems: Positive for movement disorder. No CV, , pulmonary, eye, ENT system symptoms on review. Reliability poor. Mental Status Exam: The patient is oriented to herself. Insight and judgment, recent and remote memory, attention and concentration, fund of knowledge is poor consistent with her diagnoses. Laboratory Data: Reviewed. Impression: Major neurocognitive disorder Alzheimer vascular with delusion, depression, behavioral disturbance. Anxiety disorder unspecified. Impulse control disorder unspecified. Plan: Maintain current psychotropics. We will start her on Zoloft 25 mg a day for 3 days, then 50 mg a day thereafter. Continue rest unchanged. Assessment: Vital Signs/I&O: Vital Signs Date Time Temp Pulse Resp B/P (MAP) Pulse Ox O2 Delivery O2 Flow Rate FiO2 09/27/20 06:38 97.1 70 20 115/70 (85) 09/26/20 16:23 96 09/24/20 06:37 Room Air I & O 09/26/20 09/26/20 09/27/20 14:59 22:59 06:59 Intake Total 840 ml 360 ml Balance 840 ml 360 ml Current Medications: Meds: Current Medications Medications (Trade) Dose Ordered Sig/Jose M Route PRN Reason Start Time Stop Time Status Last Admin Dose Admin Olanzapine (ZyPREXA ZYDIS) 2.5 mg PRN Q2HR PRN PO PSYCHOSIS 09/08/20 22:15 09/14/20 06:54 Trazodone HCl (Desyrel) 50 mg PRN QHS PRN PO INSOMNIA 09/08/20 22:15 09/25/20 20:03 Buspirone HCl (Buspar) 5 mg TID PO 09/09/20 09:00 09/26/20 20:02 Quetiapine Fumarate (SEROquel) 50 mg BID PO 09/09/20 09:00 09/26/20 20:02 Ascorbic Acid (Vitamin C) 500 mg DAILY PO 09/09/20 09:00 09/26/20 10:19 Levothyroxine Sodium (Synthroid) 88 mcg DAILY06 PO 09/09/20 06:00 09/10/20 12:05 DC 09/09/20 04:40 Multivitamins/ Calcium (Thera-M Plus) 1 tab DAILY PO 09/09/20 09:00 09/26/20 10:19 Acetaminophen (Tylenol) 650 mg PRN Q6HRS PRN PO MILD PAIN / TEMP > 100.3'F 09/08/20 23:45 Multi-Ingredient Ointment (Analgesic [place]) 1 barrie PRN QID PRN TP MUSCLE PAIN 09/08/20 23:45 Al Hydroxide/Mg Hydroxide (Mylanta Plus Xs) 15 ml PRN AFTMEALHC PRN PO DYSPEPSIA 09/08/20 23:45 Magnesium Hydroxide (Milk Of Magnesia) 2,400 mg PRN QHS PRN PO CONSTIPATION 09/08/20 23:45 Nicotine (Nicoderm Cq 14mg Patch) 1 patch DAILY TD 09/09/20 09:00 09/21/20 22:52 DC 09/21/20 08:39 Levothyroxine Sodium (Synthroid) 50 mcg DAILY06 PO 09/11/20 06:00 09/27/20 06:05 Amoxicillin (Amoxil) 250 mg [id number] PO 09/11/20 21:00 09/18/20 21:00 DC 09/18/20 20:13 Clonazepam (KlonoPIN) 0.5 mg BID PO 09/13/20 21:00 09/16/20 17:33 DC 09/16/20 08:23 Diazepam (Valium) 5 mg 1X ONCE PO 09/14/20 06:00 09/14/20 06:01 DC 09/14/20 06:00 Lactobacillus Rhamnosus (Culturelle) 1 cap BID PO 09/14/20 09:00 09/26/20 20:02 Nicotine (Nicoderm Cq 7mg Patch) 1 patch DAILY TD 09/22/20 09:00 10/06/20 11:00 09/26/20 10:18 Polyethylene Glycol (miraLAX) 17 gm DAILY PO 09/23/20 09:00 09/26/20 10:19 Sertraline HCl (Zoloft) 25 mg DAILY PO 09/27/20 09:00 09/29/20 23:50 Sertraline HCl (Zoloft) 50 mg DAILY PO 09/30/20 09:00 I have reviewed the current psychotropics carefully including drug interactions. Risk benefit ratio favors no change other than as noted in my dictated progress note. Diagnosis: Problems: (1) Bipolar affective disorder, mixed (2) Anxiety disorder, unspecified (3) Impulse control disorder, unspecified (4) Dementia, vascular, with depression (5) Dementia, vascular, with delusions (6) Dementia in Alzheimer's disease with depression (7) Dementia in Alzheimer's disease with delusions (8) Dementia of the Alzheimer's type with early onset with behavioral disturbance (9) Major neurocognitive disorder OSMANI WASHINGTON MD Sep 27, 2020 07:48
[2020-09-27] MEDS: MULTIVITAMIN with MINERAL TABLET. PO SCH (10:18)
[2020-09-27] MEDS: POLYETHYLENE GLYCOL 3350 17 GM PACKET. PO SCH (10:18)
[2020-09-27] MEDS: SERTRALINE 25 MG TABLET. PO SCH (10:18)
[2020-09-27] MEDS: busPIRone 5 MG TABLET. PO SCH ×4 (10:18→21:00)
[2020-09-27] MEDS: NICOTINE 7MG PATCH. TD SCH (10:18)
[2020-09-27] MEDS: QUEtiapine 50 MG TABLET. PO SCH ×3 (10:18→21:00)
[2020-09-27] MEDS: LACTOBACILLUS RHAMNOSUS GG 1 CAPSULE. PO SCH ×3 (10:18→21:00)
[2020-09-27] MEDS: ASCORBIC ACID 500 MG TABLET PO SCH (10:18)
[2020-09-27 15:52] VITALS: BP 90/70
--- NOTE | 2020-09-27 18:30 | NUR ---
Patient has been calm, disorganized, and pleasantly confused during most of this shift. She was social and interactive throughout the day; she did spend a large part of the afternoon in the day room participating in groups. Patient became agitated after receiving a phone call from a family member because she wanted the family member to come pick her up. She calmed down after about an hour. Will continue to monitor and report to oncoming shift.
[2020-09-27] MEDS: traZODone 50 MG TABLET. PO PRN (20:24)
--- NOTE | 2020-09-27 22:02 | PDOC ---
Exam Note: Trey Note: Please also refer to the separate dictated note~for this date of service dictated separately.~Patient seen individually. Discussed the patient with Nursing staff reviewed the chart.~Reviewed interim history and current functioning. Reviewed vital signs,~Labs/ Radiology~and current medications noted below. Continue current treatment with the changes noted in the dictated addendum note Assessment: Vital Signs/I&O: Vital Signs Date Time Temp Pulse Resp B/P (MAP) Pulse Ox O2 Delivery O2 Flow Rate FiO2 09/27/20 15:52 98.0 82 20 90/70 (77) 95 09/24/20 06:37 Room Air I & O 09/26/20 09/26/20 09/27/20 15:00 23:00 07:00 Intake Total 840 ml 360 ml Balance 840 ml 360 ml Current Medications: Meds: Current Medications Medications (Trade) Dose Ordered Sig/Jose M Route PRN Reason Start Time Stop Time Status Last Admin Dose Admin Olanzapine (ZyPREXA ZYDIS) 2.5 mg PRN Q2HR PRN PO PSYCHOSIS 09/08/20 22:15 09/14/20 06:54 Trazodone HCl (Desyrel) 50 mg PRN QHS PRN PO INSOMNIA 09/08/20 22:15 09/27/20 20:24 Buspirone HCl (Buspar) 5 mg TID PO 09/09/20 09:00 09/27/20 20:23 Quetiapine Fumarate (SEROquel) 50 mg BID PO 09/09/20 09:00 09/27/20 20:23 Ascorbic Acid (Vitamin C) 500 mg DAILY PO 09/09/20 09:00 09/27/20 10:18 Levothyroxine Sodium (Synthroid) 88 mcg DAILY06 PO 09/09/20 06:00 09/10/20 12:05 DC 09/09/20 04:40 Multivitamins/ Calcium (Thera-M Plus) 1 tab DAILY PO 09/09/20 09:00 09/27/20 10:18 Acetaminophen (Tylenol) 650 mg PRN Q6HRS PRN PO MILD PAIN / TEMP > 100.3'F 09/08/20 23:45 Multi-Ingredient Ointment (Analgesic [place]) 1 barrie PRN QID PRN TP MUSCLE PAIN 09/08/20 23:45 Al Hydroxide/Mg Hydroxide (Mylanta Plus Xs) 15 ml PRN AFTMEALHC PRN PO DYSPEPSIA 09/08/20 23:45 Magnesium Hydroxide (Milk Of Magnesia) 2,400 mg PRN QHS PRN PO CONSTIPATION 09/08/20 23:45 Nicotine (Nicoderm Cq 14mg Patch) 1 patch DAILY TD 09/09/20 09:00 09/21/20 22:52 DC 09/21/20 08:39 Levothyroxine Sodium (Synthroid) 50 mcg DAILY06 PO 09/11/20 06:00 09/27/20 06:05 Amoxicillin (Amoxil) 250 mg [id number] PO 09/11/20 21:00 09/18/20 21:00 DC 09/18/20 20:13 Clonazepam (KlonoPIN) 0.5 mg BID PO 09/13/20 21:00 09/16/20 17:33 DC 09/16/20 08:23 Diazepam (Valium) 5 mg 1X ONCE PO 09/14/20 06:00 09/14/20 06:01 DC 09/14/20 06:00 Lactobacillus Rhamnosus (Culturelle) 1 cap BID PO 09/14/20 09:00 09/27/20 20:23 Nicotine (Nicoderm Cq 7mg Patch) 1 patch DAILY TD 09/22/20 09:00 10/06/20 11:00 09/27/20 10:18 Polyethylene Glycol (miraLAX) 17 gm DAILY PO 09/23/20 09:00 09/27/20 10:18 Sertraline HCl (Zoloft) 25 mg DAILY PO 09/27/20 09:00 09/29/20 23:50 09/27/20 10:18 Sertraline HCl (Zoloft) 50 mg DAILY PO 09/30/20 09:00 Current Medications Medications (Trade) Dose Ordered Sig/Jose M Route PRN Reason Start Time Stop Time Status Last Admin Dose Admin Sertraline HCl (Zoloft) 25 mg DAILY PO 09/27/20 09:00 09/29/20 23:50 09/27/20 10:18 I have reviewed the current psychotropics carefully including drug interactions. Risk benefit ratio favors no change other than as noted in my dictated progress note. Diagnosis: Problems: (1) Bipolar affective disorder, mixed (2) Anxiety disorder, unspecified (3) Impulse control disorder, unspecified (4) Dementia, vascular, with depression (5) Dementia, vascular, with delusions (6) Dementia in Alzheimer's disease with depression (7) Dementia in Alzheimer's disease with delusions (8) Dementia of the Alzheimer's type with early onset with behavioral disturba nce (9) Major neurocognitive disorder OSMANI WASHINGTON MD Sep 27, 2020 22:02
--- NOTE | 2020-09-27 23:20 | NUR ---
Pt highly agitated and irritable this evening. When approached with HS medications, pt began yelling and swinging at this RN, stating "go away mother fucselina." Attempted to administer HS medications numerous times; each time pt yelling and refusing. Pt currently refusing to go to bed and is sitting in the hallway yelling/ mumbling to herself. Will continue to monitor.
[2020-09-28 06:27] VITALS: BP 122/73
[2020-09-28 06:42] LABS: BASO # 0.1 x10^3/uL (0.0-0.2); BASO % 1 % (0-3); EOS # 0.2 x10^3/uL (0.0-0.7); EOS % 2 % (0-3); HEMATOCRIT 40.3 % (36.0-47.0); HEMOGLOBIN 13.3 g/dL (12.0-15.5); LYMPH # 2.2 x10^3/uL (1.0-4.8); LYMPH % 27 % (24-48); MEAN CORPUSCULAR HEMOGLOBIN 32 pg (25-35); MEAN CORPUSCULAR HGB CONC 33 g/dL (31-37); MEAN CORPUSCULAR VOLUME 96 fL (79-100); MONO # 0.7 x10^3/uL (0.0-1.1); MONO % 8 % (0-9); NEUT # 5.2 x10^3uL (1.8-7.7); NEUT % 62 % (31-73); PLATELET COUNT 271 x10^3/uL (140-400); RED BLOOD COUNT 4.22 x10^6/uL (3.50-5.40); RED CELL DISTRIBUTION WIDTH 13.7 % (11.5-14.5); WHITE BLOOD COUNT 8.3 x10^3/uL (4.0-11.0)
[2020-09-28 06:45] LABS: ALBUMIN 3.3 g/dL (3.4-5.0); ALBUMIN/GLOBULIN RATIO 0.8 (1.0-1.7); CALCIUM 9.1 mg/dL (8.5-10.1); GFR 54.8; POTASSIUM 4.3 mmol/L (3.5-5.1); TOTAL BILIRUBIN 0.3 mg/dL (0.2-1.0); TOTAL PROTEIN 7.3 g/dL (6.4-8.2)
--- NOTE | 2020-09-28 07:09 | PDOC ---
Exam Note: Trey Note: This note is a late entry for 09/27/2020 covers elements not covered in my initial note. Subjective: The patient was seen individually in the evening of 09/27/2020 with Louis GILLILAND, discussed and reviewed the chart. The patient slept 7 hours previous night. Overall the patients ataxia is better. She did well during the day but till her niece called and talked to her on the phone and then the patient was upset that the niece would not come and discharge her. I addressed this with the patient. She is quite dismissive. She does have the abnormal movements. Review of Systems: Positive for movement disorder. No CV, , pulmonary, eye, ENT system symptoms on review. Reliability poor. Mental Status Exam: The patient is oriented to herself. Insight and judgment, recent and remote memory, attention and concentration, fund of knowledge is poor consistent with her diagnoses. Laboratory Data: Reviewed. Impression: Major neurocognitive disorder Alzheimer vascular with delusion, depression, behavioral disturbance. Anxiety disorder unspecified. Impulse control disorder unspecified. Plan: Maintain current psychotropics unchanged. Assessment: Vital Signs/I&O: Vital Signs Date Time Temp Pulse Resp B/P (MAP) Pulse Ox O2 Delivery O2 Flow Rate FiO2 09/28/20 06:27 97.2 81 16 122/73 (89) 96 09/24/20 06:37 Room Air I & O 09/27/20 09/27/20 09/28/20 15:00 23:00 07:00 Intake Total 720 ml 480 ml Balance 720 ml 480 ml Current Medications: Meds: Current Medications Medications (Trade) Dose Ordered Sig/Jose M Route PRN Reason Start Time Stop Time Status Last Admin Dose Admin Olanzapine (ZyPREXA ZYDIS) 2.5 mg PRN Q2HR PRN PO PSYCHOSIS 09/08/20 22:15 09/14/20 06:54 Trazodone HCl (Desyrel) 50 mg PRN QHS PRN PO INSOMNIA 09/08/20 22:15 09/25/20 20:03 Buspirone HCl (Buspar) 5 mg TID PO 09/09/20 09:00 09/27/20 14:35 Quetiapine Fumarate (SEROquel) 50 mg BID PO 09/09/20 09:00 09/27/20 10:18 Ascorbic Acid (Vitamin C) 500 mg DAILY PO 09/09/20 09:00 09/27/20 10:18 Levothyroxine Sodium (Synthroid) 88 mcg DAILY06 PO 09/09/20 06:00 09/10/20 12:05 DC 09/09/20 04:40 Multivitamins/ Calcium (Thera-M Plus) 1 tab DAILY PO 09/09/20 09:00 09/27/20 10:18 Acetaminophen (Tylenol) 650 mg PRN Q6HRS PRN PO MILD PAIN / TEMP > 100.3'F 09/08/20 23:45 Multi-Ingredient Ointment (Analgesic [place]) 1 barrie PRN QID PRN TP MUSCLE PAIN 09/08/20 23:45 Al Hydroxide/Mg Hydroxide (Mylanta Plus Xs) 15 ml PRN AFTMEALHC PRN PO DYSPEPSIA 09/08/20 23:45 Magnesium Hydroxide (Milk Of Magnesia) 2,400 mg PRN QHS PRN PO CONSTIPATION 09/08/20 23:45 Nicotine (Nicoderm Cq 14mg Patch) 1 patch DAILY TD 09/09/20 09:00 09/21/20 22:52 DC 09/21/20 08:39 Levothyroxine Sodium (Synthroid) 50 mcg DAILY06 PO 09/11/20 06:00 09/27/20 06:05 Amoxicillin (Amoxil) 250 mg [id number] PO 09/11/20 21:00 09/18/20 21:00 DC 09/18/20 20:13 Clonazepam (KlonoPIN) 0.5 mg BID PO 09/13/20 21:00 09/16/20 17:33 DC 09/16/20 08:23 Diazepam (Valium) 5 mg 1X ONCE PO 09/14/20 06:00 09/14/20 06:01 DC 09/14/20 06:00 Lactobacillus Rhamnosus (Culturelle) 1 cap BID PO 09/14/20 09:00 09/27/20 10:18 Nicotine (Nicoderm Cq 7mg Patch) 1 patch DAILY TD 09/22/20 09:00 10/06/20 11:00 09/27/20 10:18 Polyethylene Glycol (miraLAX) 17 gm DAILY PO 09/23/20 09:00 09/27/20 10:18 Sertraline HCl (Zoloft) 25 mg DAILY PO 09/27/20 09:00 09/29/20 23:50 09/27/20 10:18 Sertraline HCl (Zoloft) 50 mg DAILY PO 09/30/20 09:00 Current Medications Medications (Trade) Dose Ordered Sig/Jose M Route PRN Reason Start Time Stop Time Status Last Admin Dose Admin Sertraline HCl (Zoloft) 25 mg DAILY PO 09/27/20 09:00 09/29/20 23:50 09/27/20 10:18 I have reviewed the current psychotropics carefully including drug interactions. Risk benefit ratio favors no change other than as noted in my dictated progress note. Diagnosis: Problems: (1) Bipolar affective disorder, mixed (2) Anxiety disorder, unspecified (3) Impulse control disorder, unspecified (4) Dementia, vascular, with depression (5) Dementia, vascular, with delusions (6) Dementia in Alzheimer's disease with depression (7) Dementia in Alzheimer's disease with delusions (8) Dementia of the Alzheimer's type with early onset with behavioral disturba nce (9) Major neurocognitive disorder OSMANI WASHINGTON MD Sep 28, 2020 07:09
[2020-09-28] MEDS: LEVOTHYROXINE 50 MCG TABLET PO SCH (08:49)
[2020-09-28] MEDS: QUEtiapine 50 MG TABLET. PO SCH ×2 (08:50→20:22)
[2020-09-28] MEDS: NICOTINE 7MG PATCH. TD SCH (08:50)
[2020-09-28] MEDS: POLYETHYLENE GLYCOL 3350 17 GM PACKET. PO SCH (08:50)
[2020-09-28] MEDS: ASCORBIC ACID 500 MG TABLET PO SCH (08:50)
[2020-09-28] MEDS: MULTIVITAMIN with MINERAL TABLET. PO SCH (08:50)
[2020-09-28] MEDS: busPIRone 5 MG TABLET. PO SCH ×3 (08:50→20:22)
[2020-09-28] MEDS: LACTOBACILLUS RHAMNOSUS GG 1 CAPSULE. PO SCH ×2 (08:50→20:23)
[2020-09-28] MEDS: SERTRALINE 25 MG TABLET. PO SCH (08:50)
--- NOTE | 2020-09-28 14:58 | NUR ---
PATIENT LOCATED IN A DINING ROOM UPON ASSESSMENT. PATIENT IS CALM AND PLEASANT, SMILED, COOPERATIVE AND COMPLIANT. PATIENT IS CURRENTLY IN A DAY ROOM PARTICIPATING IN A GROUP AND INTERACTING WITH STAFF AND PEERS APPROPRIATELY.
[2020-09-28 16:12] VITALS: BP 106/67
[2020-09-28] MEDS: traZODone 50 MG TABLET. PO PRN (20:24)
--- NOTE | 2020-09-28 22:20 | PDOC ---
Exam Note: Trey Note: Please also refer to the separate dictated note~for this date of service dictated separately.~Patient seen individually. Discussed the patient with Nursing staff reviewed the chart.~Reviewed interim history and current functioning. Reviewed vital signs,~Labs/ Radiology~and current medications noted below. Continue current treatment with the changes noted in the dictated addendum note Assessment: Vital Signs/I&O: Vital Signs Date Time Temp Pulse Resp B/P (MAP) Pulse Ox O2 Delivery O2 Flow Rate FiO2 09/28/20 16:12 98.5 71 18 106/67 (80) 95 Room Air I & O 09/27/20 09/27/20 09/28/20 15:00 23:00 07:00 Intake Total 720 ml 480 ml Balance 720 ml 480 ml Labs: Laboratory Tests Test 09/28/20 06:17 White Blood Count 8.3 x10^3/uL (4.0-11.0) Red Blood Count 4.22 x10^6/uL (3.50-5.40) Hemoglobin 13.3 g/dL (12.0-15.5) Hematocrit 40.3 % (36.0-47.0) Mean Corpuscular Volume 96 fL (79-100) Mean Corpuscular Hemoglobin 32 pg (25-35) Mean Corpuscular Hemoglobin Concent 33 g/dL (31-37) Red Cell Distribution Width 13.7 % (11.5-14.5) Platelet Count 271 x10^3/uL (140-400) Neutrophils (%) (Auto) 62 % (31-73) Lymphocytes (%) (Auto) 27 % (24-48) Monocytes (%) (Auto) 8 % (0-9) Eosinophils (%) (Auto) 2 % (0-3) Basophils (%) (Auto) 1 % (0-3) Neutrophils # (Auto) 5.2 x10^3uL (1.8-7.7) Lymphocytes # (Auto) 2.2 x10^3/uL (1.0-4.8) Monocytes # (Auto) 0.7 x10^3/uL (0.0-1.1) Eosinophils # (Auto) 0.2 x10^3/uL (0.0-0.7) Basophils # (Auto) 0.1 x10^3/uL (0.0-0.2) Sodium Level 142 mmol/L (136-145) Potassium Level 4.3 mmol/L (3.5-5.1) Chloride Level 107 mmol/L (98-107) Carbon Dioxide Level 23 mmol/L (21-32) Anion Gap 12 (6-14) Blood Urea Nitrogen 23 mg/dL (7-20) H Creatinine 1.0 mg/dL (0.6-1.0) Estimated GFR (Cockcroft-Gault) 54.8 BUN/Creatinine Ratio 23 (6-20) H Glucose Level 104 mg/dL (70-99) H Calcium Level 9.1 mg/dL (8.5-10.1) Total Bilirubin 0.3 mg/dL (0.2-1.0) Aspartate Amino Transferase (AST) 15 U/L (15-37) Alanine Aminotransferase (ALT) 22 U/L (14-59) Alkaline Phosphatase 100 U/L (46-116) Total Protein 7.3 g/dL (6.4-8.2) Albumin 3.3 g/dL (3.4-5.0) L Albumin/Globulin Ratio 0.8 (1.0-1.7) L Current Medications: Meds: Laboratory Tests Test 09/28/20 06:17 White Blood Count 8.3 x10^3/uL Red Blood Count 4.22 x10^6/uL Hemoglobin 13.3 g/dL Hematocrit 40.3 % Mean Corpuscular Volume 96 fL Mean Corpuscular Hemoglobin 32 pg Mean Corpuscular Hemoglobin Concent 33 g/dL Red Cell Distribution Width 13.7 % Platelet Count 271 x10^3/uL Neutrophils (%) (Auto) 62 % Lymphocytes (%) (Auto) 27 % Monocytes (%) (Auto) 8 % Eosinophils (%) (Auto) 2 % Basophils (%) (Auto) 1 % Neutrophils # (Auto) 5.2 x10^3uL Lymphocytes # (Auto) 2.2 x10^3/uL Monocytes # (Auto) 0.7 x10^3/uL Eosinophils # (Auto) 0.2 x10^3/uL Basophils # (Auto) 0.1 x10^3/uL Sodium Level 142 mmol/L Potassium Level 4.3 mmol/L Chloride Level 107 mmol/L Carbon Dioxide Level 23 mmol/L Anion Gap 12 Blood Urea Nitrogen 23 mg/dL Creatinine 1.0 mg/dL Estimated GFR (Cockcroft-Gault) 54.8 BUN/Creatinine Ratio 23 Glucose Level 104 mg/dL Calcium Level 9.1 mg/dL Total Bilirubin 0.3 mg/dL Aspartate Amino Transf (AST/SGOT) 15 U/L Alanine Aminotransferase (ALT/SGPT) 22 U/L Alkaline Phosphatase 100 U/L Total Protein 7.3 g/dL Albumin 3.3 g/dL Albumin/Globulin Ratio 0.8 Current Medications Medications (Trade) Dose Ordered Sig/Jose M Route PRN Reason Start Time Stop Time Status Last Admin Dose Admin Olanzapine (ZyPREXA ZYDIS) 2.5 mg PRN Q2HR PRN PO PSYCHOSIS 09/08/20 22:15 09/14/20 06:54 Trazodone HCl (Desyrel) 50 mg PRN QHS PRN PO INSOMNIA 09/08/20 22:15 09/28/20 20:24 Buspirone HCl (Buspar) 5 mg TID PO 09/09/20 09:00 09/28/20 20:22 Quetiapine Fumarate (SEROquel) 50 mg BID PO 09/09/20 09:00 09/28/20 20:22 Ascorbic Acid (Vitamin C) 500 mg DAILY PO 09/09/20 09:00 09/28/20 08:50 Levothyroxine Sodium (Synthroid) 88 mcg DAILY06 PO 09/09/20 06:00 09/10/20 12:05 DC 09/09/20 04:40 Multivitamins/ Calcium (Thera-M Plus) 1 tab DAILY PO 09/09/20 09:00 09/28/20 08:50 Acetaminophen (Tylenol) 650 mg PRN Q6HRS PRN PO MILD PAIN / TEMP > 100.3'F 09/08/20 23:45 Multi-Ingredient Ointment (Analgesic [place]) 1 barrie PRN QID PRN TP MUSCLE PAIN 09/08/20 23:45 Al Hydroxide/Mg Hydroxide (Mylanta Plus Xs) 15 ml PRN AFTMEALHC PRN PO DYSPEPSIA 09/08/20 23:45 Magnesium Hydroxide (Milk Of Magnesia) 2,400 mg PRN QHS PRN PO CONSTIPATION 09/08/20 23:45 Nicotine (Nicoderm Cq 14mg Patch) 1 patch DAILY TD 09/09/20 09:00 09/21/20 22:52 DC 09/21/20 08:39 Levothyroxine Sodium (Synthroid) 50 mcg DAILY06 PO 09/11/20 06:00 09/28/20 08:49 Amoxicillin (Amoxil) 250 mg [id number] PO 09/11/20 21:00 09/18/20 21:00 DC 09/18/20 20:13 Clonazepam (KlonoPIN) 0.5 mg BID PO 09/13/20 21:00 09/16/20 17:33 DC 09/16/20 08:23 Diazepam (Valium) 5 mg 1X ONCE PO 09/14/20 06:00 09/14/20 06:01 DC 09/14/20 06:00 Lactobacillus Rhamnosus (Culturelle) 1 cap BID PO 09/14/20 09:00 09/28/20 20:23 Nicotine (Nicoderm Cq 7mg Patch) 1 patch DAILY TD 09/22/20 09:00 10/06/20 11:00 09/28/20 08:50 Polyethylene Glycol (miraLAX) 17 gm DAILY PO 09/23/20 09:00 09/28/20 08:50 Sertraline HCl (Zoloft) 25 mg DAILY PO 09/27/20 09:00 09/29/20 23:50 09/28/20 08:50 Sertraline HCl (Zoloft) 50 mg DAILY PO 09/30/20 09:00 I have reviewed the current psychotropics carefully including drug interactions. Risk benefit ratio favors no change other than as noted in my dictated progress note. Diagnosis: Problems: (1) Bipolar affective disorder, mixed (2) Anxiety disorder, unspecified (3) Impulse control disorder, unspecified (4) Dementia, vascular, with depression (5) Dementia, vascular, with delusions (6) Dementia in Alzheimer's disease with depression (7) Dementia in Alzheimer's disease with delusions (8) Dementia of the Alzheimer's type with early onset with behavioral disturbance (9) Major neurocognitive disorder OSMANI WASHINGTON MD Sep 28, 2020 22:20
[2020-09-29] MEDS: LEVOTHYROXINE 50 MCG TABLET PO SCH (05:39)
[2020-09-29 05:53] VITALS: BP 122/76
--- NOTE | 2020-09-29 07:01 | PDOC ---
Exam Note: Trey Note: This note is a late entry for 09/28/2020 covers elements not covered in my initial note. Subjective: The patient was seen individually in the evening of 09/28/2020 with Natalie GILLILAND, discussed and reviewed the chart. The patient slept 3-3/4 hours previous night. Overall the patient was somewhat agitated previous night but has done better during the day today. She was yelling at times. Received p.r.n. trazodone, quite friendly this morning and met with her this evening. Review of Systems: No CV, , pulmonary, eye, ENT system symptoms on review. She does have abnormal movements. Mental Status Exam: The patient is oriented to herself. Insight and judgment, recent and remote memory, attention and concentration, fund of knowledge is poor consistent with her diagnoses. Laboratory Data: Reviewed. Impression: Major neurocognitive disorder Alzheimer vascular with delusion, depression, behavioral disturbance. Anxiety disorder unspecified. Impulse control disorder unspecified. Plan: Maintain current psychotropics unchanged. For now the patient is fairly stable, but if mood lability worsens we may need to increase the daytime scheduled Seroquel. Maintain Zoloft, BuSpar at current dosage. Assessment: Vital Signs/I&O: Vital Signs Date Time Temp Pulse Resp B/P (MAP) Pulse Ox O2 Delivery O2 Flow Rate FiO2 09/29/20 05:53 97.7 69 18 122/76 (91) 97 09/28/20 16:12 Room Air I & O 09/28/20 09/28/20 09/29/20 15:00 23:00 07:00 Intake Total 460 ml 480 ml Balance 460 ml 480 ml Current Medications: Meds: Current Medications Medications (Trade) Dose Ordered Sig/Jose M Route PRN Reason Start Time Stop Time Status Last Admin Dose Admin Olanzapine (ZyPREXA ZYDIS) 2.5 mg PRN Q2HR PRN PO PSYCHOSIS 09/08/20 22:15 09/14/20 06:54 Trazodone HCl (Desyrel) 50 mg PRN QHS PRN PO INSOMNIA 09/08/20 22:15 09/28/20 20:24 Buspirone HCl (Buspar) 5 mg TID PO 09/09/20 09:00 09/28/20 20:22 Quetiapine Fumarate (SEROquel) 50 mg BID PO 09/09/20 09:00 09/28/20 20:22 Ascorbic Acid (Vitamin C) 500 mg DAILY PO 09/09/20 09:00 09/28/20 08:50 Levothyroxine Sodium (Synthroid) 88 mcg DAILY06 PO 09/09/20 06:00 09/10/20 12:05 DC 09/09/20 04:40 Multivitamins/ Calcium (Thera-M Plus) 1 tab DAILY PO 09/09/20 09:00 09/28/20 08:50 Acetaminophen (Tylenol) 650 mg PRN Q6HRS PRN PO MILD PAIN / TEMP > 100.3'F 09/08/20 23:45 Multi-Ingredient Ointment (Analgesic [place]) 1 barrie PRN QID PRN TP MUSCLE PAIN 09/08/20 23:45 Al Hydroxide/Mg Hydroxide (Mylanta Plus Xs) 15 ml PRN AFTMEALHC PRN PO DYSPEPSIA 09/08/20 23:45 Magnesium Hydroxide (Milk Of Magnesia) 2,400 mg PRN QHS PRN PO CONSTIPATION 09/08/20 23:45 Nicotine (Nicoderm Cq 14mg Patch) 1 patch DAILY TD 09/09/20 09:00 09/21/20 22:52 DC 09/21/20 08:39 Levothyroxine Sodium (Synthroid) 50 mcg DAILY06 PO 09/11/20 06:00 09/29/20 05:39 Amoxicillin (Amoxil) 250 mg [id number] PO 09/11/20 21:00 09/18/20 21:00 DC 09/18/20 20:13 Clonazepam (KlonoPIN) 0.5 mg BID PO 09/13/20 21:00 09/16/20 17:33 DC 09/16/20 08:23 Diazepam (Valium) 5 mg 1X ONCE PO 09/14/20 06:00 09/14/20 06:01 DC 09/14/20 06:00 Lactobacillus Rhamnosus (Culturelle) 1 cap BID PO 09/14/20 09:00 09/28/20 20:23 Nicotine (Nicoderm Cq 7mg Patch) 1 patch DAILY TD 09/22/20 09:00 10/06/20 11:00 09/28/20 08:50 Polyethylene Glycol (miraLAX) 17 gm DAILY PO 09/23/20 09:00 09/28/20 08:50 Sertraline HCl (Zoloft) 25 mg DAILY PO 09/27/20 09:00 09/29/20 23:50 09/28/20 08:50 Sertraline HCl (Zoloft) 50 mg DAILY PO 09/30/20 09:00 I have reviewed the current psychotropics carefully including drug interactions. Risk benefit ratio favors no change other than as noted in my dictated progress note. Diagnosis: Problems: (1) Bipolar affective disorder, mixed (2) Anxiety disorder, unspecified (3) Impulse control disorder, unspecified (4) Dementia, vascular, with depression (5) Dementia, vascular, with delusions (6) Dementia in Alzheimer's disease with depression (7) Dementia in Alzheimer's disease with delusions (8) Dementia of the Alzheimer's type with early onset with behavioral disturbance (9) Major neurocognitive disorder OSMANI WASHINGTON MD Sep 29, 2020 07:01
[2020-09-29] MEDS: LACTOBACILLUS RHAMNOSUS GG 1 CAPSULE. PO SCH ×2 (08:29→19:51)
[2020-09-29] MEDS: busPIRone 5 MG TABLET. PO SCH ×3 (08:29→19:51)
[2020-09-29] MEDS: ASCORBIC ACID 500 MG TABLET PO SCH (08:29)
[2020-09-29] MEDS: NICOTINE 7MG PATCH. TD SCH (08:30)
[2020-09-29] MEDS: MULTIVITAMIN with MINERAL TABLET. PO SCH (08:30)
[2020-09-29] MEDS: QUEtiapine 50 MG TABLET. PO SCH ×2 (08:30→19:51)
[2020-09-29] MEDS: SERTRALINE 25 MG TABLET. PO SCH (08:30)
[2020-09-29] MEDS: POLYETHYLENE GLYCOL 3350 17 GM PACKET. PO SCH (09:00)
--- NOTE | 2020-09-29 13:59 | NUR ---
PATIENT LOCATED IN A DINING ROOM UPON ASSESSMENT, REFUSED TO COOPERATE WHEN APPROACHED FOR ASSESSMENT AND MED ADMINISTRATION, REFUSED TAKING MEDICATIONS, SWINGING WITH HER ARM, SAYING " OK BUY NOW" . PATIENT WAS APPROACHED BY THIS RN LATER AFTER BREAKFAST FOR THE SECOND ATTEMPT TO ADMINISTER MEDICATIONS. PATIENT TOOK MEDS WITH ENCOURAGEMENT. PATIENT OFFERED TO TAKE A SHOWER, PATIENT REFUSED TO TAKE ONE THIS TIME. PATIENT IS CURRENTLY IN A DAY ROOM ATTENDING THE GROUP.
[2020-09-29 16:19] VITALS: BP 94/60
--- NOTE | 2020-09-29 22:17 | PDOC ---
Exam Note: Trey Note: Please also refer to the separate dictated note~for this date of service dictated separately.~Patient seen individually. Discussed the patient with Nursing staff reviewed the chart.~Reviewed interim history and current functioning. Reviewed vital signs,~Labs/ Radiology~and current medications noted below. Continue current treatment with the changes noted in the dictated addendum note Assessment: Vital Signs/I&O: Vital Signs Date Time Temp Pulse Resp B/P (MAP) Pulse Ox O2 Delivery O2 Flow Rate FiO2 09/29/20 16:19 97.5 72 18 94/60 (71) 97 Room Air I & O 09/28/20 09/28/20 09/29/20 15:00 23:00 07:00 Intake Total 460 ml 480 ml Balance 460 ml 480 ml Current Medications: Meds: Current Medications Medications (Trade) Dose Ordered Sig/Jose M Route PRN Reason Start Time Stop Time Status Last Admin Dose Admin Olanzapine (ZyPREXA ZYDIS) 2.5 mg PRN Q2HR PRN PO PSYCHOSIS 09/08/20 22:15 09/14/20 06:54 Trazodone HCl (Desyrel) 50 mg PRN QHS PRN PO INSOMNIA 09/08/20 22:15 09/28/20 20:24 Buspirone HCl (Buspar) 5 mg TID PO 09/09/20 09:00 09/29/20 19:51 Quetiapine Fumarate (SEROquel) 50 mg BID PO 09/09/20 09:00 09/29/20 19:51 Ascorbic Acid (Vitamin C) 500 mg DAILY PO 09/09/20 09:00 09/29/20 08:29 Levothyroxine Sodium (Synthroid) 88 mcg DAILY06 PO 09/09/20 06:00 09/10/20 12:05 DC 09/09/20 04:40 Multivitamins/ Calcium (Thera-M Plus) 1 tab DAILY PO 09/09/20 09:00 09/29/20 08:30 Acetaminophen (Tylenol) 650 mg PRN Q6HRS PRN PO MILD PAIN / TEMP > 100.3'F 09/08/20 23:45 Multi-Ingredient Ointment (Analgesic [place]) 1 barrie PRN QID PRN TP MUSCLE PAIN 09/08/20 23:45 Al Hydroxide/Mg Hydroxide (Mylanta Plus Xs) 15 ml PRN AFTMEALHC PRN PO DYSPEPSIA 09/08/20 23:45 Magnesium Hydroxide (Milk Of Magnesia) 2,400 mg PRN QHS PRN PO CONSTIPATION 09/08/20 23:45 Nicotine (Nicoderm Cq 14mg Patch) 1 patch DAILY TD 09/09/20 09:00 09/21/20 22:52 DC 09/21/20 08:39 Levothyroxine Sodium (Synthroid) 50 mcg DAILY06 PO 09/11/20 06:00 09/29/20 05:39 Amoxicillin (Amoxil) 250 mg [id number] PO 09/11/20 21:00 09/18/20 21:00 DC 09/18/20 20:13 Clonazepam (KlonoPIN) 0.5 mg BID PO 09/13/20 21:00 09/16/20 17:33 DC 09/16/20 08:23 Diazepam (Valium) 5 mg 1X ONCE PO 09/14/20 06:00 09/14/20 06:01 DC 09/14/20 06:00 Lactobacillus Rhamnosus (Culturelle) 1 cap BID PO 09/14/20 09:00 09/29/20 19:51 Nicotine (Nicoderm Cq 7mg Patch) 1 patch DAILY TD 09/22/20 09:00 10/06/20 11:00 09/29/20 08:30 Polyethylene Glycol (miraLAX) 17 gm DAILY PO 09/23/20 09:00 09/28/20 08:50 Sertraline HCl (Zoloft) 25 mg DAILY PO 09/27/20 09:00 09/29/20 23:50 09/29/20 08:30 Sertraline HCl (Zoloft) 50 mg DAILY PO 09/30/20 09:00 Divalproex Sodium (Depakote Sprinkles) 125 mg DAILY08 PO 09/30/20 08:00 Divalproex Sodium (Depakote Sprinkles) 125 mg DAILYWSUP PO 09/30/20 17:00 I have reviewed the current psychotropics carefully including drug interactions. Risk benefit ratio favors no change other than as noted in my dictated progress note. Diagnosis: Problems: (1) Bipolar affective disorder, mixed (2) Anxiety disorder, unspecified (3) Impulse control disorder, unspecified (4) Dementia, vascular, with depression (5) Dementia, vascular, with delusions (6) Dementia in Alzheimer's disease with depression (7) Dementia in Alzheimer's disease with delusions (8) Dementia of the Alzheimer's type with early onset with behavioral disturbance (9) Major neurocognitive disorder OSMANI WASHINGTON MD Sep 29, 2020 22:17
--- NOTE | 2020-09-30 01:07 | NUR ---
Last evening pt walked in he hallway or sat quietly in the day room. She took HS meds whole without difficulty. She has been pleasantly confused and cooperative with cares and has had no behaviors tonight.
[2020-09-30] MEDS: LEVOTHYROXINE 50 MCG TABLET PO SCH (06:03)
[2020-09-30 06:48] VITALS: BP 113/63
--- NOTE | 2020-09-30 07:39 | PDOC ---
Exam Note: Trey Note: This note is a late entry for 09/29/2020 covers elements not covered in my initial note. Subjective: The patient was seen individually in the evening of 09/29/2020 with Natalie GILLILAND, discussed and reviewed the chart. The patient slept 7-3/4 hours previous night. She gets quite agitated with showers, refused that today. She continues to have mood lability, anxious, forgetful. Review of Systems: No CV, , pulmonary, eye, ENT system symptoms on review. She does have abnormal movements. Mental Status Exam: The patient is oriented to herself. Insight and judgment, recent and remote memory, attention and concentration, fund of knowledge is poor consistent with her diagnoses. Laboratory Data: Reviewed. Impression: Major neurocognitive disorder Alzheimer vascular with delusion, depression, behavioral disturbance. Anxiety disorder unspecified. Impulse control disorder unspecified. Plan: Maintain current psychotropics unchanged. Given the patients ongoing mood lability, we will start Depakote Sprinkle 125 mg 9 a.m. and 5 p.m. Check CBC, CMP, valproic acid level in days. Continue rest psychotropics unchanged. Assessment: Vital Signs/I&O: Vital Signs Date Time Temp Pulse Resp B/P (MAP) Pulse Ox O2 Delivery O2 Flow Rate FiO2 09/30/20 06:48 97.2 71 16 113/63 (80) 94 Room Air I & O 09/29/20 09/29/20 09/30/20 15:00 23:00 07:00 Intake Total 840 ml 480 ml Balance 840 ml 480 ml Current Medications: Meds: Current Medications Medications (Trade) Dose Ordered Sig/Jose M Route PRN Reason Start Time Stop Time Status Last Admin Dose Admin Olanzapine (ZyPREXA ZYDIS) 2.5 mg PRN Q2HR PRN PO PSYCHOSIS 09/08/20 22:15 09/14/20 06:54 Trazodone HCl (Desyrel) 50 mg PRN QHS PRN PO INSOMNIA 09/08/20 22:15 09/28/20 20:24 Buspirone HCl (Buspar) 5 mg TID PO 09/09/20 09:00 09/29/20 19:51 Quetiapine Fumarate (SEROquel) 50 mg BID PO 09/09/20 09:00 09/29/20 19:51 Ascorbic Acid (Vitamin C) 500 mg DAILY PO 09/09/20 09:00 09/29/20 08:29 Levothyroxine Sodium (Synthroid) 88 mcg DAILY06 PO 09/09/20 06:00 09/10/20 12:05 DC 09/09/20 04:40 Multivitamins/ Calcium (Thera-M Plus) 1 tab DAILY PO 09/09/20 09:00 09/29/20 08:30 Acetaminophen (Tylenol) 650 mg PRN Q6HRS PRN PO MILD PAIN / TEMP > 100.3'F 09/08/20 23:45 Multi-Ingredient Ointment (Analgesic [place]) 1 barrie PRN QID PRN TP MUSCLE PAIN 09/08/20 23:45 Al Hydroxide/Mg Hydroxide (Mylanta Plus Xs) 15 ml PRN AFTMEALHC PRN PO DYSPEPSIA 09/08/20 23:45 Magnesium Hydroxide (Milk Of Magnesia) 2,400 mg PRN QHS PRN PO CONSTIPATION 09/08/20 23:45 Nicotine (Nicoderm Cq 14mg Patch) 1 patch DAILY TD 09/09/20 09:00 09/21/20 22:52 DC 09/21/20 08:39 Levothyroxine Sodium (Synthroid) 50 mcg DAILY06 PO 09/11/20 06:00 09/30/20 06:03 Amoxicillin (Amoxil) 250 mg [id number] PO 09/11/20 21:00 09/18/20 21:00 DC 09/18/20 20:13 Clonazepam (KlonoPIN) 0.5 mg BID PO 09/13/20 21:00 09/16/20 17:33 DC 09/16/20 08:23 Diazepam (Valium) 5 mg 1X ONCE PO 09/14/20 06:00 09/14/20 06:01 DC 09/14/20 06:00 Lactobacillus Rhamnosus (Culturelle) 1 cap BID PO 09/14/20 09:00 09/29/20 19:51 Nicotine (Nicoderm Cq 7mg Patch) 1 patch DAILY TD 09/22/20 09:00 10/06/20 11:00 09/29/20 08:30 Polyethylene Glycol (miraLAX) 17 gm DAILY PO 09/23/20 09:00 09/28/20 08:50 Sertraline HCl (Zoloft) 25 mg DAILY PO 09/27/20 09:00 09/29/20 23:50 DC 09/29/20 08:30 Sertraline HCl (Zoloft) 50 mg DAILY PO 09/30/20 09:00 Divalproex Sodium (Depakote Sprinkles) 125 mg DAILY08 PO 09/30/20 08:00 Divalproex Sodium (Depakote Sprinkles) 125 mg DAILYWSUP PO 09/30/20 17:00 I have reviewed the current psychotropics carefully including drug interactions. Risk benefit ratio favors no change other than as noted in my dictated progress note. Diagnosis: Problems: (1) Bipolar affective disorder, mixed (2) Anxiety disorder, unspecified (3) Impulse control disorder, unspecified (4) Dementia, vascular, with depression (5) Dementia, vascular, with delusions (6) Dementia in Alzheimer's disease with depression (7) Dementia in Alzheimer's disease with delusions (8) Dementia of the Alzheimer's type with early onset with behavioral disturbance (9) Major neurocognitive disorder OSMANI WASHINGTON MD Sep 30, 2020 07:39
[2020-09-30] MEDS: MULTIVITAMIN with MINERAL TABLET. PO SCH (08:55)
[2020-09-30] MEDS: DIVALPROEX 125 MG CAP.SPRINK PO SCH ×2 (08:55→16:59)
[2020-09-30] MEDS: busPIRone 5 MG TABLET. PO SCH ×3 (08:55→19:20)
[2020-09-30] MEDS: ASCORBIC ACID 500 MG TABLET PO SCH (08:55)
[2020-09-30] MEDS: QUEtiapine 50 MG TABLET. PO SCH ×2 (08:55→19:20)
[2020-09-30] MEDS: SERTRALINE 50 MG TABLET. PO SCH (08:55)
[2020-09-30] MEDS: NICOTINE 7MG PATCH. TD SCH (08:55)
[2020-09-30] MEDS: LACTOBACILLUS RHAMNOSUS GG 1 CAPSULE. PO SCH ×2 (08:55→19:20)
[2020-09-30] MEDS: POLYETHYLENE GLYCOL 3350 17 GM PACKET. PO SCH (08:55)
--- NOTE | 2020-09-30 14:32 | NUR ---
Shift summary Patient very cooperative today. Very pleasant with cares. Took medications without difficulty. Patient has been in day room and dining room throughout [facility].
[2020-09-30 16:21] VITALS: BP 100/68
--- NOTE | 2020-09-30 22:04 | PDOC ---
Exam Note: Trey Note: Please also refer to the separate dictated note~for this date of service dictated separately.~Patient seen individually. Discussed the patient with Nursing staff reviewed the chart.~Reviewed interim history and current functioning. Reviewed vital signs,~Labs/ Radiology~and current medications noted below. Continue current treatment with the changes noted in the dictated addendum note Assessment: Vital Signs/I&O: Vital Signs Date Time Temp Pulse Resp B/P (MAP) Pulse Ox O2 Delivery O2 Flow Rate FiO2 09/30/20 16:21 97.7 74 18 100/68 (79) 94 Room Air I & O 09/29/20 09/29/20 09/30/20 14:59 22:59 06:59 Intake Total 840 ml 480 ml Balance 840 ml 480 ml Current Medications: Meds: Current Medications Medications (Trade) Dose Ordered Sig/Jose M Route PRN Reason Start Time Stop Time Status Last Admin Dose Admin Olanzapine (ZyPREXA ZYDIS) 2.5 mg PRN Q2HR PRN PO PSYCHOSIS 09/08/20 22:15 09/14/20 06:54 Trazodone HCl (Desyrel) 50 mg PRN QHS PRN PO INSOMNIA 09/08/20 22:15 09/28/20 20:24 Buspirone HCl (Buspar) 5 mg TID PO 09/09/20 09:00 09/30/20 19:20 Quetiapine Fumarate (SEROquel) 50 mg BID PO 09/09/20 09:00 09/30/20 19:20 Ascorbic Acid (Vitamin C) 500 mg DAILY PO 09/09/20 09:00 09/30/20 08:55 Levothyroxine Sodium (Synthroid) 88 mcg DAILY06 PO 09/09/20 06:00 09/10/20 12:05 DC 09/09/20 04:40 Multivitamins/ Calcium (Thera-M Plus) 1 tab DAILY PO 09/09/20 09:00 09/30/20 08:55 Acetaminophen (Tylenol) 650 mg PRN Q6HRS PRN PO MILD PAIN / TEMP > 100.3'F 09/08/20 23:45 Multi-Ingredient Ointment (Analgesic [place]) 1 barrie PRN QID PRN TP MUSCLE PAIN 09/08/20 23:45 Al Hydroxide/Mg Hydroxide (Mylanta Plus Xs) 15 ml PRN AFTMEALHC PRN PO DYSPEPSIA 09/08/20 23:45 Magnesium Hydroxide (Milk Of Magnesia) 2,400 mg PRN QHS PRN PO CONSTIPATION 09/08/20 23:45 Nicotine (Nicoderm Cq 14mg Patch) 1 patch DAILY TD 09/09/20 09:00 09/21/20 22:52 DC 09/21/20 08:39 Levothyroxine Sodium (Synthroid) 50 mcg DAILY06 PO 09/11/20 06:00 09/30/20 06:03 Amoxicillin (Amoxil) 250 mg [id number] PO 09/11/20 21:00 09/18/20 21:00 DC 09/18/20 20:13 Clonazepam (KlonoPIN) 0.5 mg BID PO 09/13/20 21:00 09/16/20 17:33 DC 09/16/20 08:23 Diazepam (Valium) 5 mg 1X ONCE PO 09/14/20 06:00 09/14/20 06:01 DC 09/14/20 06:00 Lactobacillus Rhamnosus (Culturelle) 1 cap BID PO 09/14/20 09:00 09/30/20 19:20 Nicotine (Nicoderm Cq 7mg Patch) 1 patch DAILY TD 09/22/20 09:00 10/06/20 11:00 09/30/20 08:55 Polyethylene Glycol (miraLAX) 17 gm DAILY PO 09/23/20 09:00 09/30/20 08:55 Sertraline HCl (Zoloft) 25 mg DAILY PO 09/27/20 09:00 09/29/20 23:50 DC 09/29/20 08:30 Sertraline HCl (Zoloft) 50 mg DAILY PO 09/30/20 09:00 09/30/20 08:55 Divalproex Sodium (Depakote Sprinkles) 125 mg DAILY08 PO 09/30/20 08:00 09/30/20 08:55 Divalproex Sodium (Depakote Sprinkles) 125 mg DAILYWSUP PO 09/30/20 17:00 09/30/20 16:59 Current Medications Medications (Trade) Dose Ordered Sig/Jose M Route PRN Reason Start Time Stop Time Status Last Admin Dose Admin Sertraline HCl (Zoloft) 50 mg DAILY PO 09/30/20 09:00 09/30/20 08:55 Divalproex Sodium (Depakote Sprinkles) 125 mg DAILY08 PO 09/30/20 08:00 09/30/20 08:55 Divalproex Sodium (Depakote Sprinkles) 125 mg DAILYWSUP PO 09/30/20 17:00 09/30/20 16:59 I have reviewed the current psychotropics carefully including drug interactions. Risk benefit ratio favors no change other than as noted in my dictated progress note. Diagnosis: Problems: (1) Bipolar affective disorder, mixed (2) Anxiety disorder, unspecified (3) Impulse control disorder, unspecified (4) Dementia, vascular, with depression (5) Dementia, vascular, with delusions (6) Dementia in Alzheimer's disease with depression (7) Dementia in Alzheimer's disease with delusions (8) Dementia of the Alzheimer's type with early onset with behavioral d isturbance (9) Major neurocognitive disorder OSMANI WASHINGTON MD Sep 30, 2020 22:04
--- NOTE | 2020-10-01 01:21 | NUR ---
Last evening pt was in day room she was pleasant and interactive with staff. Meds were taken whole without difficulty. She has had no behaviors tonight.
[2020-10-01] MEDS: LEVOTHYROXINE 50 MCG TABLET PO SCH (05:56)
--- NOTE | 2020-10-01 07:50 | PDOC ---
Exam Note: Trey Note: This note is a late entry for 09/30/2020 covers elements not covered in my initial note. Subjective: The patient was seen individually in the evening of 09/30/2020 with Bay GILLILAND, discussed and reviewed the chart. The patient slept 6-3/4 hours previous night. She has been doing reasonably well, resistive with cares, compliant with medications. Review of Systems: No CV, , pulmonary, eye, ENT system symptoms on review. Mental Status Exam: The patient is oriented to herself. Insight and judgment, recent and remote memory, attention and concentration, fund of knowledge is poor consistent with her diagnoses. Laboratory Data: Reviewed. Impression: Major neurocognitive disorder Alzheimer vascular with delusion, depression, behavioral disturbance. Anxiety disorder unspecified. Impulse control disorder unspecified. Plan: Maintain current psychotropics unchanged. Assessment: Vital Signs/I&O: Vital Signs Date Time Temp Pulse Resp B/P (MAP) Pulse Ox O2 Delivery O2 Flow Rate FiO2 10/01/20 06:52 20 09/30/20 16:21 97.7 74 100/68 (79) 94 Room Air I & O 09/30/20 09/30/20 10/01/20 15:00 23:00 07:00 Intake Total 600 ml 600 ml Balance 600 ml 600 ml Current Medications: Meds: Current Medications Medications (Trade) Dose Ordered Sig/Jose M Route PRN Reason Start Time Stop Time Status Last Admin Dose Admin Olanzapine (ZyPREXA ZYDIS) 2.5 mg PRN Q2HR PRN PO PSYCHOSIS 09/08/20 22:15 09/14/20 06:54 Trazodone HCl (Desyrel) 50 mg PRN QHS PRN PO INSOMNIA 09/08/20 22:15 09/28/20 20:24 Buspirone HCl (Buspar) 5 mg TID PO 09/09/20 09:00 09/30/20 19:20 Quetiapine Fumarate (SEROquel) 50 mg BID PO 09/09/20 09:00 09/30/20 19:20 Ascorbic Acid (Vitamin C) 500 mg DAILY PO 09/09/20 09:00 09/30/20 08:55 Levothyroxine Sodium (Synthroid) 88 mcg DAILY06 PO 09/09/20 06:00 09/10/20 12:05 DC 09/09/20 04:40 Multivitamins/ Calcium (Thera-M Plus) 1 tab DAILY PO 09/09/20 09:00 09/30/20 08:55 Acetaminophen (Tylenol) 650 mg PRN Q6HRS PRN PO MILD PAIN / TEMP > 100.3'F 09/08/20 23:45 Multi-Ingredient Ointment (Analgesic [place]) 1 barrie PRN QID PRN TP MUSCLE PAIN 09/08/20 23:45 Al Hydroxide/Mg Hydroxide (Mylanta Plus Xs) 15 ml PRN AFTMEALHC PRN PO DYSPEPSIA 09/08/20 23:45 Magnesium Hydroxide (Milk Of Magnesia) 2,400 mg PRN QHS PRN PO CONSTIPATION 09/08/20 23:45 Nicotine (Nicoderm Cq 14mg Patch) 1 patch DAILY TD 09/09/20 09:00 09/21/20 22:52 DC 09/21/20 08:39 Levothyroxine Sodium (Synthroid) 50 mcg DAILY06 PO 09/11/20 06:00 10/01/20 05:56 Amoxicillin (Amoxil) 250 mg [id number] PO 09/11/20 21:00 09/18/20 21:00 DC 09/18/20 20:13 Clonazepam (KlonoPIN) 0.5 mg BID PO 09/13/20 21:00 09/16/20 17:33 DC 09/16/20 08:23 Diazepam (Valium) 5 mg 1X ONCE PO 09/14/20 06:00 09/14/20 06:01 DC 09/14/20 06:00 Lactobacillus Rhamnosus (Culturelle) 1 cap BID PO 09/14/20 09:00 09/30/20 19:20 Nicotine (Nicoderm Cq 7mg Patch) 1 patch DAILY TD 09/22/20 09:00 10/06/20 11:00 09/30/20 08:55 Polyethylene Glycol (miraLAX) 17 gm DAILY PO 09/23/20 09:00 09/30/20 08:55 Sertraline HCl (Zoloft) 25 mg DAILY PO 09/27/20 09:00 09/29/20 23:50 DC 09/29/20 08:30 Sertraline HCl (Zoloft) 50 mg DAILY PO 09/30/20 09:00 09/30/20 08:55 Divalproex Sodium (Depakote Sprinkles) 125 mg DAILY08 PO 09/30/20 08:00 09/30/20 08:55 Divalproex Sodium (Depakote Sprinkles) 125 mg DAILYWSUP PO 09/30/20 17:00 09/30/20 16:59 Current Medications Medications (Trade) Dose Ordered Sig/Jose M Route PRN Reason Start Time Stop Time Status Last Admin Dose Admin Sertraline HCl (Zoloft) 50 mg DAILY PO 09/30/20 09:00 09/30/20 08:55 Divalproex Sodium (Depakote Sprinkles) 125 mg DAILY08 PO 09/30/20 08:00 09/30/20 08:55 Divalproex Sodium (Depakote Sprinkles) 125 mg DAILYWSUP PO 09/30/20 17:00 09/30/20 16:59 I have reviewed the current psychotropics carefully including drug interactions. Risk benefit ratio favors no change other than as noted in my dictated progress note. Diagnosis: Problems: (1) Bipolar affective disorder, mixed (2) Anxiety disorder, unspecified (3) Impulse control disorder, unspecified (4) Dementia, vascular, with depression (5) Dementia, vascular, with delusions (6) Dementia in Alzheimer's disease with depression (7) Dementia in Alzheimer's disease with delusions (8) Dementia of the Alzheimer's type with early onset with behavioral disturbance (9) Major neurocognitive disorder OSMANI WASHINGTON MD Oct 01, 2020 07:50
[2020-10-01] MEDS: NICOTINE 7MG PATCH. TD SCH (09:06)
[2020-10-01] MEDS: ASCORBIC ACID 500 MG TABLET PO SCH (09:06)
[2020-10-01] MEDS: SERTRALINE 50 MG TABLET. PO SCH (09:06)
[2020-10-01] MEDS: DIVALPROEX 125 MG CAP.SPRINK PO SCH ×2 (09:06→16:16)
[2020-10-01] MEDS: MULTIVITAMIN with MINERAL TABLET. PO SCH (09:06)
[2020-10-01] MEDS: LACTOBACILLUS RHAMNOSUS GG 1 CAPSULE. PO SCH ×2 (09:06→20:05)
[2020-10-01] MEDS: busPIRone 5 MG TABLET. PO SCH ×3 (09:06→20:05)
[2020-10-01] MEDS: QUEtiapine 50 MG TABLET. PO SCH ×2 (09:06→20:05)
[2020-10-01] MEDS: POLYETHYLENE GLYCOL 3350 17 GM PACKET. PO SCH (09:07)
--- NOTE | 2020-10-01 14:09 | NUR ---
PATIENT LOCATED IN A BED AWAKE, CALM AND COMPLIANT, COOPERATIVE WITH ASSESSMENT, PATIENT WITHDRAWN TO HER ROOM SITTING QUIETLY OR IN A BED RESTING.
[2020-10-01 16:12] VITALS: BP 98/66
--- NOTE | 2020-10-01 22:10 | PDOC ---
Exam Note: Trey Note: Please also refer to the separate dictated note~for this date of service dictated separately.~Patient seen individually. Discussed the patient with Nursing staff reviewed the chart.~Reviewed interim history and current functioning. Reviewed vital signs,~Labs/ Radiology~and current medications noted below. Continue current treatment with the changes noted in the dictated addendum note Assessment: Vital Signs/I&O: Vital Signs Date Time Temp Pulse Resp B/P (MAP) Pulse Ox O2 Delivery O2 Flow Rate FiO2 10/01/20 16:12 97.8 74 17 98/66 (77) 97 09/30/20 16:21 Room Air I & O 09/30/20 09/30/20 10/01/20 15:00 23:00 07:00 Intake Total 600 ml 600 ml Balance 600 ml 600 ml Current Medications: Meds: Current Medications Medications (Trade) Dose Ordered Sig/Jose M Route PRN Reason Start Time Stop Time Status Last Admin Dose Admin Olanzapine (ZyPREXA ZYDIS) 2.5 mg PRN Q2HR PRN PO PSYCHOSIS 09/08/20 22:15 09/14/20 06:54 Trazodone HCl (Desyrel) 50 mg PRN QHS PRN PO INSOMNIA 09/08/20 22:15 09/28/20 20:24 Buspirone HCl (Buspar) 5 mg TID PO 09/09/20 09:00 10/01/20 20:05 Quetiapine Fumarate (SEROquel) 50 mg BID PO 09/09/20 09:00 10/01/20 20:05 Ascorbic Acid (Vitamin C) 500 mg DAILY PO 09/09/20 09:00 10/01/20 09:06 Levothyroxine Sodium (Synthroid) 88 mcg DAILY06 PO 09/09/20 06:00 09/10/20 12:05 DC 09/09/20 04:40 Multivitamins/ Calcium (Thera-M Plus) 1 tab DAILY PO 09/09/20 09:00 10/01/20 09:06 Acetaminophen (Tylenol) 650 mg PRN Q6HRS PRN PO MILD PAIN / TEMP > 100.3'F 09/08/20 23:45 Multi-Ingredient Ointment (Analgesic [place]) 1 barrie PRN QID PRN TP MUSCLE PAIN 09/08/20 23:45 Al Hydroxide/Mg Hydroxide (Mylanta Plus Xs) 15 ml PRN AFTMEALHC PRN PO DYSPEPSIA 09/08/20 23:45 Magnesium Hydroxide (Milk Of Magnesia) 2,400 mg PRN QHS PRN PO CONSTIPATION 09/08/20 23:45 Nicotine (Nicoderm Cq 14mg Patch) 1 patch DAILY TD 09/09/20 09:00 09/21/20 22:52 DC 09/21/20 08:39 Levothyroxine Sodium (Synthroid) 50 mcg DAILY06 PO 09/11/20 06:00 10/01/20 05:56 Amoxicillin (Amoxil) 250 mg [id number] PO 09/11/20 21:00 09/18/20 21:00 DC 09/18/20 20:13 Clonazepam (KlonoPIN) 0.5 mg BID PO 09/13/20 21:00 09/16/20 17:33 DC 09/16/20 08:23 Diazepam (Valium) 5 mg 1X ONCE PO 09/14/20 06:00 09/14/20 06:01 DC 09/14/20 06:00 Lactobacillus Rhamnosus (Culturelle) 1 cap BID PO 09/14/20 09:00 10/01/20 20:05 Nicotine (Nicoderm Cq 7mg Patch) 1 patch DAILY TD 09/22/20 09:00 10/06/20 11:00 10/01/20 09:06 Polyethylene Glycol (miraLAX) 17 gm DAILY PO 09/23/20 09:00 10/01/20 09:07 Sertraline HCl (Zoloft) 25 mg DAILY PO 09/27/20 09:00 09/29/20 23:50 DC 09/29/20 08:30 Sertraline HCl (Zoloft) 50 mg DAILY PO 09/30/20 09:00 10/01/20 09:06 Divalproex Sodium (Depakote Sprinkles) 125 mg DAILY08 PO 09/30/20 08:00 10/01/20 09:06 Divalproex Sodium (Depakote Sprinkles) 125 mg DAILYWSUP PO 09/30/20 17:00 10/01/20 16:16 I have reviewed the current psychotropics carefully including drug interactions. Risk benefit ratio favors no change other than as noted in my dictated progress note. Diagnosis: Problems: (1) Bipolar affective disorder, mixed (2) Anxiety disorder, unspecified (3) Impulse control disorder, unspecified (4) Dementia, vascular, with depression (5) Dementia, vascular, with delusions (6) Dementia in Alzheimer's disease with depression (7) Dementia in Alzheimer's disease with delusions (8) Dementia of the Alzheimer's type with early onset with behavioral disturbance (9) Major neurocognitive disorder OSMANI WASHINGTON MD Oct 01, 2020 22:10
--- NOTE | 2020-10-02 02:38 | NUR ---
Last evening pt sat in the day room and was pleasant and social. She seemed to enjoy interactinng with others. She took meds whole without difficulty and has had no behaviors tonight.
[2020-10-02] MEDS: LEVOTHYROXINE 50 MCG TABLET PO SCH (05:47)
[2020-10-02 06:11] LABS: HEMATOCRIT 39.5 % (36.0-47.0); HEMOGLOBIN 13.2 g/dL (12.0-15.5); RED BLOOD COUNT 4.1 x10^6/uL (3.50-5.40); RED CELL DISTRIBUTION WIDTH 13.9 % (11.5-14.5); WHITE BLOOD COUNT 7.9 x10^3/uL (4.0-11.0)
[2020-10-02 06:24] LABS: ALBUMIN 3.2 g/dL (3.4-5.0); ALBUMIN/GLOBULIN RATIO 0.8 (1.0-1.7); ALK PHOS 96 U/L (46-116); ALT (SGPT) 19 U/L (14-59); ANION GAP 5 (6-14); AST (SGOT) 13 U/L (15-37); BLOOD UREA NITROGEN 23 mg/dL (7-20); BUN/CREATININE RATIO 23 (6-20); CALCIUM 9.3 mg/dL (8.5-10.1); CARBON DIOXIDE 30 mmol/L (21-32); CHLORIDE 106 mmol/L (98-107); GFR 54.8; GLUCOSE 91 mg/dL (70-99); POTASSIUM 4.5 mmol/L (3.5-5.1); SODIUM 141 mmol/L (136-145); TOTAL BILIRUBIN 0.3 mg/dL (0.2-1.0); TOTAL PROTEIN 7.2 g/dL (6.4-8.2); VAL ACID 19 mcg/mL (50-100)
[2020-10-02 06:40] VITALS: BP 126/78
--- NOTE | 2020-10-02 06:44 | PDOC ---
Exam Note: Trey Note: This note is a late entry for 10/01/2020 covers elements not covered in my initial note. Subjective: The patient was seen individually in the evening of 10/01/2020 with Natalie GILLILAND, discussed and reviewed the chart. The patient slept 6 hours previous night. She is compliant with her medications. No disruptive behaviors noted. Review of Systems: No CV, , pulmonary, eye, ENT system symptoms on review. Mental Status Exam: The patient is oriented to herself. Insight and judgment, recent and remote memory, attention and concentration, fund of knowledge is poor consistent with her diagnoses. Laboratory Data: Reviewed. Impression: Major neurocognitive disorder Alzheimer vascular with delusion, depression, behavioral disturbance. Anxiety disorder unspecified. Impulse control disorder unspecified. Plan: Maintain current psychotropics unchanged. Continue BuSpar, Seroquel, Zyprexa p.r.n., trazodone p.r.n., Zoloft and Depakote Sprinkle. Adjust further as clinically indicated. Assessment: Vital Signs/I&O: Vital Signs Date Time Temp Pulse Resp B/P (MAP) Pulse Ox O2 Delivery O2 Flow Rate FiO2 10/02/20 06:40 97.0 67 17 126/78 (94) 96 09/30/20 16:21 Room Air I & O 10/01/20 10/01/20 10/02/20 14:59 22:59 06:59 Intake Total 600 ml Balance 600 ml Labs: Laboratory Tests Test 10/02/20 06:00 White Blood Count 7.9 x10^3/uL (4.0-11.0) Red Blood Count 4.10 x10^6/uL (3.50-5.40) Hemoglobin 13.2 g/dL (12.0-15.5) Hematocrit 39.5 % (36.0-47.0) Mean Corpuscular Volume 96 fL (79-100) Mean Corpuscular Hemoglobin 32 pg (25-35) Mean Corpuscular Hemoglobin Concent 33 g/dL (31-37) Red Cell Distribution Width 13.9 % (11.5-14.5) Platelet Count 256 x10^3/uL (140-400) Sodium Level 141 mmol/L (136-145) Potassium Level 4.5 mmol/L (3.5-5.1) Chloride Level 106 mmol/L (98-107) Carbon Dioxide Level 30 mmol/L (21-32) Anion Gap 5 (6-14) L Blood Urea Nitrogen 23 mg/dL (7-20) H Creatinine 1.0 mg/dL (0.6-1.0) Estimated GFR (Cockcroft-Gault) 54.8 BUN/Creatinine Ratio 23 (6-20) H Glucose Level 91 mg/dL (70-99) Calcium Level 9.3 mg/dL (8.5-10.1) Total Bilirubin 0.3 mg/dL (0.2-1.0) Aspartate Amino Transferase (AST) 13 U/L (15-37) L Alanine Aminotransferase (ALT) 19 U/L (14-59) Alkaline Phosphatase 96 U/L (46-116) Total Protein 7.2 g/dL (6.4-8.2) Albumin 3.2 g/dL (3.4-5.0) L Albumin/Globulin Ratio 0.8 (1.0-1.7) L Valproic Acid Level 19 mcg/mL (50-100) L Valproic Acid Last Dose Date 09/30/2020 Valproic Acid Last Dose Time 0800 Current Medications: Meds: Laboratory Tests Test 10/02/20 06:00 White Blood Count 7.9 x10^3/uL Red Blood Count 4.10 x10^6/uL Hemoglobin 13.2 g/dL Hematocrit 39.5 % Mean Corpuscular Volume 96 fL Mean Corpuscular Hemoglobin 32 pg Mean Corpuscular Hemoglobin Concent 33 g/dL Red Cell Distribution Width 13.9 % Platelet Count 256 x10^3/uL Sodium Level 141 mmol/L Potassium Level 4.5 mmol/L Chloride Level 106 mmol/L Carbon Dioxide Level 30 mmol/L Anion Gap 5 Blood Urea Nitrogen 23 mg/dL Creatinine 1.0 mg/dL Estimated GFR (Cockcroft-Gault) 54.8 BUN/Creatinine Ratio 23 Glucose Level 91 mg/dL Calcium Level 9.3 mg/dL Total Bilirubin 0.3 mg/dL Aspartate Amino Transf (AST/SGOT) 13 U/L Alanine Aminotransferase (ALT/SGPT) 19 U/L Alkaline Phosphatase 96 U/L Total Protein 7.2 g/dL Albumin 3.2 g/dL Albumin/Globulin Ratio 0.8 Valproic Acid (Depakene) Level 19 mcg/mL Valproic Acid Last Dose Date 09/30/2020 Valproic Acid Last Dose Time 0800 Current Medications Medications (Trade) Dose Ordered Sig/Jose M Route PRN Reason Start Time Stop Time Status Last Admin Dose Admin Olanzapine (ZyPREXA ZYDIS) 2.5 mg PRN Q2HR PRN PO PSYCHOSIS 09/08/20 22:15 09/14/20 06:54 Trazodone HCl (Desyrel) 50 mg PRN QHS PRN PO INSOMNIA 09/08/20 22:15 09/28/20 20:24 Buspirone HCl (Buspar) 5 mg TID PO 09/09/20 09:00 10/01/20 20:05 Quetiapine Fumarate (SEROquel) 50 mg BID PO 09/09/20 09:00 10/01/20 20:05 Ascorbic Acid (Vitamin C) 500 mg DAILY PO 09/09/20 09:00 10/01/20 09:06 Levothyroxine Sodium (Synthroid) 88 mcg DAILY06 PO 09/09/20 06:00 09/10/20 12:05 DC 09/09/20 04:40 Multivitamins/ Calcium (Thera-M Plus) 1 tab DAILY PO 09/09/20 09:00 10/01/20 09:06 Acetaminophen (Tylenol) 650 mg PRN Q6HRS PRN PO MILD PAIN / TEMP > 100.3'F 09/08/20 23:45 Multi-Ingredient Ointment (Analgesic [place]) 1 barrie PRN QID PRN TP MUSCLE PAIN 09/08/20 23:45 Al Hydroxide/Mg Hydroxide (Mylanta Plus Xs) 15 ml PRN AFTMEALHC PRN PO DYSPEPSIA 09/08/20 23:45 Magnesium Hydroxide (Milk Of Magnesia) 2,400 mg PRN QHS PRN PO CONSTIPATION 09/08/20 23:45 Nicotine (Nicoderm Cq 14mg Patch) 1 patch DAILY TD 09/09/20 09:00 09/21/20 22:52 DC 09/21/20 08:39 Levothyroxine Sodium (Synthroid) 50 mcg DAILY06 PO 09/11/20 06:00 10/02/20 05:47 Amoxicillin (Amoxil) 250 mg [id number] PO 09/11/20 21:00 09/18/20 21:00 DC 09/18/20 20:13 Clonazepam (KlonoPIN) 0.5 mg BID PO 09/13/20 21:00 09/16/20 17:33 DC 09/16/20 08:23 Diazepam (Valium) 5 mg 1X ONCE PO 09/14/20 06:00 09/14/20 06:01 DC 09/14/20 06:00 Lactobacillus Rhamnosus (Culturelle) 1 cap BID PO 09/14/20 09:00 10/01/20 20:05 Nicotine (Nicoderm Cq 7mg Patch) 1 patch DAILY TD 09/22/20 09:00 10/06/20 11:00 10/01/20 09:06 Polyethylene Glycol (miraLAX) 17 gm DAILY PO 09/23/20 09:00 10/01/20 09:07 Sertraline HCl (Zoloft) 25 mg DAILY PO 09/27/20 09:00 09/29/20 23:50 DC 09/29/20 08:30 Sertraline HCl (Zoloft) 50 mg DAILY PO 09/30/20 09:00 10/01/20 09:06 Divalproex Sodium (Depakote Sprinkles) 125 mg DAILY08 PO 09/30/20 08:00 10/01/20 09:06 Divalproex Sodium (Depakote Sprinkles) 125 mg DAILYWSUP PO 09/30/20 17:00 10/01/20 16:16 I have reviewed the current psychotropics carefully including drug interactions. Risk benefit ratio favors no change other than as noted in my dictated progress note. Diagnosis: Problems: (1) Bipolar affective disorder, mixed (2) Anxiety disorder, unspecified (3) Impulse control disorder, unspecified (4) Dementia, vascular, with depression (5) Dementia, vascular, with delusions (6) Dementia in Alzheimer's disease with depression (7) Dementia in Alzheimer's disease with delusions (8) Dementia of the Alzheimer's type with early onset with behavioral disturbance (9) Major neurocognitive disorder OSMANI WASHINGTON MD Oct 02, 2020 06:44
[2020-10-02] MEDS: ASCORBIC ACID 500 MG TABLET PO SCH (10:45)
[2020-10-02] MEDS: busPIRone 5 MG TABLET. PO SCH ×3 (10:45→20:22)
[2020-10-02] MEDS: DIVALPROEX 125 MG CAP.SPRINK PO SCH ×2 (10:45→17:48)
[2020-10-02] MEDS: POLYETHYLENE GLYCOL 3350 17 GM PACKET. PO SCH (10:45)
[2020-10-02] MEDS: NICOTINE 7MG PATCH. TD SCH (10:45)
[2020-10-02] MEDS: QUEtiapine 50 MG TABLET. PO SCH ×2 (10:46→20:22)
[2020-10-02] MEDS: SERTRALINE 50 MG TABLET. PO SCH (10:46)
[2020-10-02] MEDS: MULTIVITAMIN with MINERAL TABLET. PO SCH (10:46)
[2020-10-02] MEDS: LACTOBACILLUS RHAMNOSUS GG 1 CAPSULE. PO SCH ×2 (10:46→20:22)
--- NOTE | 2020-10-02 13:44 | NUR ---
Nursing note: Pt was allowed to sleep in this AM. Pt was given her AM meds when she awoke around 1045. She is pleasant, med compliant and cooperative. Pt denies having any pain or complaints at time of assessment. She is currently sitting in the day room watching TV. Will continue to monitor.
--- NOTE | 2020-10-02 13:50 | NUR ---
WEEKLY ACTIVITY THERAPY NOTE Date of Admission: 09/08/20 Date of AT Assessment: 09/11 Precipitating behaviors that initiated intake and admission: pt belligerent, refusing cares/showers, becoming combative and swinging at staff, agitated, anxious, verbally abusive, and name calling. Goal aimed:increase socialization and engagement Initial Goal:Pt will participate in at least one individual or group Activity Therapy session before discharge. Goal changed 09/18: Pt will participate in at least three individual or group Activity Therapy session per week. Weekly progress towards goal: achieved, 3/3 Group participation level: 1 min, 2 mod Weekly highlights: sang delta mona during Karaoke group Friday afternoon Behaviors observed: quiet but pleasant during group sessions Plan: repeat goal Beneficial adaptations:
--- NOTE | 2020-10-02 14:07 | TX PLAN ---
Interdisciplinary Tx Plan Admission Information Sep 08, 2020 at 21:37 Legal Status (on Admission): Voluntary DPOA/Guardian Name: Lauren Sainz Contact Other Contact Name: Brody Other Contact Verified Code Status: DNR Allergies: Coded Allergies: codeine (Verified Allergy, Unknown, Unknown, 09/08/20) propoxyphene (Verified Allergy, Unknown, Unknown, 09/08/20) tetracycline (Verified Allergy, Unknown, Unknown, 09/08/20) Diagnoses Primary Diagnosis: 1. Bipolar disorder, mixed. 2. Dementia, mild unspecified. 3. Generalized anxiety disorder. Reasons for Admission: Aggressive, Agitated, Angry, Anxiety/Panic, Combative Problem in Patient's Words: The behaviors that pt is currently demonstrating are the behaviors she was having a few years ago when she was placed in her facility. At that time, she probably hadn't bathed in nine monthes as she was living in an apaprtment and not caring for herself. Additional Admission Comments: Per intake pt, was belligerent, refusing cares/showers, incontinent, combative, swinging at staff, agitated, anxious, verbally abusive, name calling, and staff from her facility would distance themseleves from her because of her behaviors. Problems Active Problems: Agitation, angry, withdrawn, uncooperative Inactive Problems: None noted at this time. Pt Strengths/Limitations Ability for Lamy: Poor Cognitive Functioning/Ability: Poor Communication Skills/Ability: Poor Financial Resources: Poor Insight/Judgement: Poor Intellectual Ability: Poor Physical Health: Fair Social Skills: Poor Stability in Family: Fair Stability in School/Work: Poor Verbal Skills: Fair Discharge Criteria Discharge Criteria: No need for close observ., Adequate arrangements @DC, V erbal commit med comply, Improved mood/thought Other Discharge Comments: None at this time. Preliminary Discharge Plan Preliminary DC Plan: Current Living Arrange. Special Precautions Special Precautions: Agitation/Assault Fall Risk: Moderate Initial D/C Plan Pt plan is to return to [facility]. Identified Discharge Needs: None noted at this time. Currently Utilized Resources Currently Utilized Resources/P: PCP is Dr. Morrell Psychiatrist is Dr. Cuenca DPOA is sandra Lauren Emeli Facility is [facility] Community Resources: None noted at this time. Identified Problems/Hx/Goals Objectives/Short-Term Goals Short Term Goals: Control abnormal behavior, Dec. Aggression, Dec. Anxiety/Panic, Dec. Outbursts, Dec. Symp. Depression, Medication Stabilization, Monitor Med Effects, Promote Coping Skill Short Term Goals in Patient's: Medication eval and adjusments to help with controlling abnormal behaviors. Help pt to feel better and be less agitated and more compliant with cares. Interventions/Frequency Staff Interventions/Frequency&: Psychiatry to assess pt three times per week for medication management. Nursing to assess behaviors, monitor medications, and complete 15 minute checks daily. Social work to see pt at least two times weekly to aid in return to placement. Activities to encourage pt to participate in group activities daily. 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 According to pt niece/Lauren MANUEL. Pt would not necessarily work when she was as her husbands would provide for the home. 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 Education: Pt quit school her gage year as she became at 15 y.o. Community Follow-up PCP Psychiatry Community Provider/Family Inpu: Lauren MANUEL, aware of pt hospitalization and provided information on social history. Lauren available as needed for further information. Treatment Plan Explained Patient/[employer] had this treatment plan explained to him/her as indicated by the signature below and has been given the opportunity to ask questions and make suggestions: Date: Patient/[employer] Signature: Status Update Update Pt continues to average eating 75% of meals and sleeps 7.25 hours. Pt appears to be more interactive and in pleasant spirits. She has attended some groups and enjoys music and time on the patio. Over the past couple of days, pt appears to be more cooperative with cares. She is medication compliant. KALEB and facility are aware of hydrocephalus and will make decisions regarding treatment following pt hospitalization here at [facility]. Pt will return to [facility] upon time of d/c. TAURUS HUSAIN Oct 02, 2020 14:07
[2020-10-02 15:55] VITALS: BP 113/56
--- NOTE | 2020-10-02 22:08 | PDOC ---
Exam Note: Trey Note: Please also refer to the separate dictated note~for this date of service dictated separately.~Patient seen individually. Discussed the patient with Nursing staff reviewed the chart.~Reviewed interim history and current functioning. Reviewed vital signs,~Labs/ Radiology~and current medications noted below. Continue current treatment with the changes noted in the dictated addendum note Assessment: Vital Signs/I&O: Vital Signs Date Time Temp Pulse Resp B/P (MAP) Pulse Ox O2 Delivery O2 Flow Rate FiO2 10/02/20 15:55 97.8 72 16 113/56 (75) 95 09/30/20 16:21 Room Air I & O 10/01/20 10/01/20 10/02/20 15:00 23:00 07:00 Intake Total 600 ml Balance 600 ml Labs: Laboratory Tests Test 10/02/20 06:00 White Blood Count 7.9 x10^3/uL (4.0-11.0) Red Blood Count 4.10 x10^6/uL (3.50-5.40) Hemoglobin 13.2 g/dL (12.0-15.5) Hematocrit 39.5 % (36.0-47.0) Mean Corpuscular Volume 96 fL (79-100) Mean Corpuscular Hemoglobin 32 pg (25-35) Mean Corpuscular Hemoglobin Concent 33 g/dL (31-37) Red Cell Distribution Width 13.9 % (11.5-14.5) Platelet Count 256 x10^3/uL (140-400) Sodium Level 141 mmol/L (136-145) Potassium Level 4.5 mmol/L (3.5-5.1) Chloride Level 106 mmol/L (98-107) Carbon Dioxide Level 30 mmol/L (21-32) Anion Gap 5 (6-14) L Blood Urea Nitrogen 23 mg/dL (7-20) H Creatinine 1.0 mg/dL (0.6-1.0) Estimated GFR (Cockcroft-Gault) 54.8 BUN/Creatinine Ratio 23 (6-20) H Glucose Level 91 mg/dL (70-99) Calcium Level 9.3 mg/dL (8.5-10.1) Total Bilirubin 0.3 mg/dL (0.2-1.0) Aspartate Amino Transferase (AST) 13 U/L (15-37) L Alanine Aminotransferase (ALT) 19 U/L (14-59) Alkaline Phosphatase 96 U/L (46-116) Total Protein 7.2 g/dL (6.4-8.2) Albumin 3.2 g/dL (3.4-5.0) L Albumin/Globulin Ratio 0.8 (1.0-1.7) L Valproic Acid Level 19 mcg/mL (50-100) L Valproic Acid Last Dose Date 09/30/2020 Valproic Acid Last Dose Time 0800 Current Medications: Meds: Laboratory Tests Test 10/02/20 06:00 White Blood Count 7.9 x10^3/uL Red Blood Count 4.10 x10^6/uL Hemoglobin 13.2 g/dL Hematocrit 39.5 % Mean Corpuscular Volume 96 fL Mean Corpuscular Hemoglobin 32 pg Mean Corpuscular Hemoglobin Concent 33 g/dL Red Cell Distribution Width 13.9 % Platelet Count 256 x10^3/uL Sodium Level 141 mmol/L Potassium Level 4.5 mmol/L Chloride Level 106 mmol/L Carbon Dioxide Level 30 mmol/L Anion Gap 5 Blood Urea Nitrogen 23 mg/dL Creatinine 1.0 mg/dL Estimated GFR (Cockcroft-Gault) 54.8 BUN/Creatinine Ratio 23 Glucose Level 91 mg/dL Calcium Level 9.3 mg/dL Total Bilirubin 0.3 mg/dL Aspartate Amino Transf (AST/SGOT) 13 U/L Alanine Aminotransferase (ALT/SGPT) 19 U/L Alkaline Phosphatase 96 U/L Total Protein 7.2 g/dL Albumin 3.2 g/dL Albumin/Globulin Ratio 0.8 Valproic Acid (Depakene) Level 19 mcg/mL Valproic Acid Last Dose Date 09/30/2020 Valproic Acid Last Dose Time 0800 Current Medications Medications (Trade) Dose Ordered Sig/Jose M Route PRN Reason Start Time Stop Time Status Last Admin Dose Admin Olanzapine (ZyPREXA ZYDIS) 2.5 mg PRN Q2HR PRN PO PSYCHOSIS 09/08/20 22:15 09/14/20 06:54 Trazodone HCl (Desyrel) 50 mg PRN QHS PRN PO INSOMNIA 09/08/20 22:15 09/28/20 20:24 Buspirone HCl (Buspar) 5 mg TID PO 09/09/20 09:00 10/02/20 20:22 Quetiapine Fumarate (SEROquel) 50 mg BID PO 09/09/20 09:00 10/02/20 20:22 Ascorbic Acid (Vitamin C) 500 mg DAILY PO 09/09/20 09:00 10/02/20 10:45 Levothyroxine Sodium (Synthroid) 88 mcg DAILY06 PO 09/09/20 06:00 09/10/20 12:05 DC 09/09/20 04:40 Multivitamins/ Calcium (Thera-M Plus) 1 tab DAILY PO 09/09/20 09:00 10/02/20 10:46 Acetaminophen (Tylenol) 650 mg PRN Q6HRS PRN PO MILD PAIN / TEMP > 100.3'F 09/08/20 23:45 Multi-Ingredient Ointment (Analgesic [place]) 1 barrie PRN QID PRN TP MUSCLE PAIN 09/08/20 23:45 Al Hydroxide/Mg Hydroxide (Mylanta Plus Xs) 15 ml PRN AFTMEALHC PRN PO DYSPEPSIA 09/08/20 23:45 Magnesium Hydroxide (Milk Of Magnesia) 2,400 mg PRN QHS PRN PO CONSTIPATION 09/08/20 23:45 Nicotine (Nicoderm Cq 14mg Patch) 1 patch DAILY TD 09/09/20 09:00 09/21/20 22:52 DC 09/21/20 08:39 Levothyroxine Sodium (Synthroid) 50 mcg DAILY06 PO 09/11/20 06:00 10/02/20 05:47 Amoxicillin (Amoxil) 250 mg [id number] PO 09/11/20 21:00 09/18/20 21:00 DC 09/18/20 20:13 Clonazepam (KlonoPIN) 0.5 mg BID PO 09/13/20 21:00 09/16/20 17:33 DC 09/16/20 08:23 Diazepam (Valium) 5 mg 1X ONCE PO 09/14/20 06:00 09/14/20 06:01 DC 09/14/20 06:00 Lactobacillus Rhamnosus (Culturelle) 1 cap BID PO 09/14/20 09:00 10/02/20 20:22 Nicotine (Nicoderm Cq 7mg Patch) 1 patch DAILY TD 09/22/20 09:00 10/06/20 11:00 10/02/20 10:45 Polyethylene Glycol (miraLAX) 17 gm DAILY PO 09/23/20 09:00 10/02/20 10:45 Sertraline HCl (Zoloft) 25 mg DAILY PO 09/27/20 09:00 09/29/20 23:50 DC 09/29/20 08:30 Sertraline HCl (Zoloft) 50 mg DAILY PO 09/30/20 09:00 10/02/20 10:46 Divalproex Sodium (Depakote Sprinkles) 125 mg DAILY08 PO 09/30/20 08:00 10/02/20 10:45 Divalproex Sodium (Depakote Sprinkles) 125 mg DAILYWSUP PO 09/30/20 17:00 10/02/20 17:48 I have reviewed the current psychotropics carefully including drug interactions. Risk benefit ratio favors no change other than as noted in my dictated progress note. Diagnosis: Problems: (1) Bipolar affective disorder, mixed (2) Anxiety disorder, unspecified (3) Impulse control disorder, unspecified (4) Dementia, vascular, with depression (5) Dementia, vascular, with delusions (6) Dementia in Alzheimer's disease with depression (7) Dementia in Alzheimer's disease with delusions (8) Dementia of the Alzheimer's type with early onset with behavioral disturbance (9) Major neurocognitive disorder OSMANI WASHINGTON MD Oct 02, 2020 22:08
--- NOTE | 2020-10-02 23:23 | NUR ---
Nursing Note Pt in day room has significant upper extremity movements but are improved over the recent past. Seems to be able to hold a glass and drink without spilling and smiles states she had a good day. No behaviors.
[2020-10-03] MEDS: LEVOTHYROXINE 50 MCG TABLET PO SCH (05:55)
[2020-10-03 06:14] VITALS: BP 130/85
--- NOTE | 2020-10-03 06:21 | NUR ---
Nursing Note Pt pleasant and cooperative. Denies pain and complaints. No behaviors.
--- NOTE | 2020-10-03 07:00 | PDOC ---
Exam Note: Trey Note: This note is a late entry for 10/02/2020 covers elements not covered in my initial note. Subjective: The patient was reviewed in the morning of 10/02/2020 for a treatment team meeting with Maggie Dunne, Eri Chao and Penny (social sciences lecturer), Angella, activity therapy and Rajwinder GILLILAND, discussed and reviewed the chart. The patient slept 6-1/2 hours previous night. Appetite is 75%. Overall the patient is doing much better. She seems to have a sense of humor. Nevertheless has significant memory impairment. Review of Systems: No CV, , pulmonary, eye, ENT system symptoms on review. She does have the abnormal movements. Mental Status Exam: The patient is oriented to herself and situation. Insight and judgment, recent and remote memory, attention and concentration, fund of knowledge is poor consistent with her diagnoses. Laboratory Data: Reviewed. Impression: Major neurocognitive disorder Alzheimer vascular with delusion, depression, behavioral disturbance. Anxiety disorder unspecified. Impulse control disorder unspecified. Plan: Maintain current psychotropics unchanged. Assessment: Vital Signs/I&O: Vital Signs Date Time Temp Pulse Resp B/P (MAP) Pulse Ox O2 Delivery O2 Flow Rate FiO2 10/03/20 06:14 97.1 69 20 130/85 (100) 10/02/20 15:55 95 09/30/20 16:21 Room Air I & O 10/02/20 10/02/20 10/03/20 15:00 23:00 07:00 Intake Total 480 ml 480 ml 240 ml Balance 480 ml 480 ml 240 ml Current Medications: Meds: Current Medications Medications (Trade) Dose Ordered Sig/Jose M Route PRN Reason Start Time Stop Time Status Last Admin Dose Admin Olanzapine (ZyPREXA ZYDIS) 2.5 mg PRN Q2HR PRN PO PSYCHOSIS 09/08/20 22:15 09/14/20 06:54 Trazodone HCl (Desyrel) 50 mg PRN QHS PRN PO INSOMNIA 09/08/20 22:15 09/28/20 20:24 Buspirone HCl (Buspar) 5 mg TID PO 09/09/20 09:00 10/02/20 20:22 Quetiapine Fumarate (SEROquel) 50 mg BID PO 09/09/20 09:00 10/02/20 20:22 Ascorbic Acid (Vitamin C) 500 mg DAILY PO 09/09/20 09:00 10/02/20 10:45 Levothyroxine Sodium (Synthroid) 88 mcg DAILY06 PO 09/09/20 06:00 09/10/20 12:05 DC 09/09/20 04:40 Multivitamins/ Calcium (Thera-M Plus) 1 tab DAILY PO 09/09/20 09:00 10/02/20 10:46 Acetaminophen (Tylenol) 650 mg PRN Q6HRS PRN PO MILD PAIN / TEMP > 100.3'F 09/08/20 23:45 Multi-Ingredient Ointment (Analgesic [place]) 1 barrie PRN QID PRN TP MUSCLE PAIN 09/08/20 23:45 Al Hydroxide/Mg Hydroxide (Mylanta Plus Xs) 15 ml PRN AFTMEALHC PRN PO DYSPEPSIA 09/08/20 23:45 Magnesium Hydroxide (Milk Of Magnesia) 2,400 mg PRN QHS PRN PO CONSTIPATION 09/08/20 23:45 Nicotine (Nicoderm Cq 14mg Patch) 1 patch DAILY TD 09/09/20 09:00 09/21/20 22:52 DC 09/21/20 08:39 Levothyroxine Sodium (Synthroid) 50 mcg DAILY06 PO 09/11/20 06:00 10/03/20 05:55 Amoxicillin (Amoxil) 250 mg [id number] PO 09/11/20 21:00 09/18/20 21:00 DC 09/18/20 20:13 Clonazepam (KlonoPIN) 0.5 mg BID PO 09/13/20 21:00 09/16/20 17:33 DC 09/16/20 08:23 Diazepam (Valium) 5 mg 1X ONCE PO 09/14/20 06:00 09/14/20 06:01 DC 09/14/20 06:00 Lactobacillus Rhamnosus (Culturelle) 1 cap BID PO 09/14/20 09:00 10/02/20 20:22 Nicotine (Nicoderm Cq 7mg Patch) 1 patch DAILY TD 09/22/20 09:00 10/06/20 11:00 10/02/20 10:45 Polyethylene Glycol (miraLAX) 17 gm DAILY PO 09/23/20 09:00 10/02/20 10:45 Sertraline HCl (Zoloft) 25 mg DAILY PO 09/27/20 09:00 09/29/20 23:50 DC 09/29/20 08:30 Sertraline HCl (Zoloft) 50 mg DAILY PO 09/30/20 09:00 10/02/20 10:46 Divalproex Sodium (Depakote Sprinkles) 125 mg DAILY08 PO 09/30/20 08:00 10/02/20 10:45 Divalproex Sodium (Depakote Sprinkles) 125 mg DAILYWSUP PO 09/30/20 17:00 10/02/20 17:48 I have reviewed the current psychotropics carefully including drug interactions. Risk benefit ratio favors no change other than as noted in my dictated progress note. Diagnosis: Problems: (1) Bipolar affective disorder, mixed (2) Anxiety disorder, unspecified (3) Impulse control disorder, unspecified (4) Dementia, vascular, with depression (5) Dementia, vascular, with delusions (6) Dementia in Alzheimer's disease with depression (7) Dementia in Alzheimer's disease with delusions (8) Dementia of the Alzheimer's type with early onset with behavioral disturbance (9) Major neurocognitive disorder OSMANI WASHINGTON MD Oct 03, 2020 07:00
[2020-10-03] MEDS: ASCORBIC ACID 500 MG TABLET PO SCH (09:11)
[2020-10-03] MEDS: MULTIVITAMIN with MINERAL TABLET. PO SCH (09:11)
[2020-10-03] MEDS: LACTOBACILLUS RHAMNOSUS GG 1 CAPSULE. PO SCH ×2 (09:11→20:21)
[2020-10-03] MEDS: busPIRone 5 MG TABLET. PO SCH ×3 (09:11→20:21)
[2020-10-03] MEDS: DIVALPROEX 125 MG CAP.SPRINK PO SCH ×2 (09:11→17:41)
[2020-10-03] MEDS: NICOTINE 7MG PATCH. TD SCH (09:11)
[2020-10-03] MEDS: POLYETHYLENE GLYCOL 3350 17 GM PACKET. PO SCH (09:11)
[2020-10-03] MEDS: QUEtiapine 50 MG TABLET. PO SCH ×2 (09:11→20:21)
[2020-10-03] MEDS: SERTRALINE 50 MG TABLET. PO SCH (09:11)
--- NOTE | 2020-10-03 15:37 | NUR ---
TODD left message with pt facility. Awaiting return call. Will call back tomorrow if no returned call by end of day.
[2020-10-03 16:15] VITALS: BP 100/66
--- NOTE | 2020-10-03 17:15 | NUR ---
Nursing note: Pt has been pleasant, med compliant and cooperative this shift. Pt denies having any pain/concerns. No behaviors noted this shift. She is currently in the dining room for supper. Will continue to monitor.
--- NOTE | 2020-10-03 23:16 | PDOC ---
Exam Note: Trey Note: Please also refer to the separate dictated note~for this date of service dictated separately.~Patient seen individually. Discussed the patient with Nursing staff reviewed the chart.~Reviewed interim history and current functioning. Reviewed vital signs,~Labs/ Radiology~and current medications noted below. Continue current treatment with the changes noted in the dictated addendum note Assessment: Vital Signs/I&O: Vital Signs Date Time Temp Pulse Resp B/P (MAP) Pulse Ox O2 Delivery O2 Flow Rate FiO2 10/03/20 16:15 98.6 70 18 100/66 (77) 95 09/30/20 16:21 Room Air I & O 10/02/20 10/02/20 10/03/20 15:00 23:00 07:00 Intake Total 480 ml 480 ml 240 ml Balance 480 ml 480 ml 240 ml Current Medications: Meds: Current Medications Medications (Trade) Dose Ordered Sig/Jose M Route PRN Reason Start Time Stop Time Status Last Admin Dose Admin Olanzapine (ZyPREXA ZYDIS) 2.5 mg PRN Q2HR PRN PO PSYCHOSIS 09/08/20 22:15 09/14/20 06:54 Trazodone HCl (Desyrel) 50 mg PRN QHS PRN PO INSOMNIA 09/08/20 22:15 09/28/20 20:24 Buspirone HCl (Buspar) 5 mg TID PO 09/09/20 09:00 10/03/20 20:21 Quetiapine Fumarate (SEROquel) 50 mg BID PO 09/09/20 09:00 10/03/20 20:21 Ascorbic Acid (Vitamin C) 500 mg DAILY PO 09/09/20 09:00 10/03/20 09:11 Levothyroxine Sodium (Synthroid) 88 mcg DAILY06 PO 09/09/20 06:00 09/10/20 12:05 DC 09/09/20 04:40 Multivitamins/ Calcium (Thera-M Plus) 1 tab DAILY PO 09/09/20 09:00 10/03/20 09:11 Acetaminophen (Tylenol) 650 mg PRN Q6HRS PRN PO MILD PAIN / TEMP > 100.3'F 09/08/20 23:45 Multi-Ingredient Ointment (Analgesic [place]) 1 barrie PRN QID PRN TP MUSCLE PAIN 09/08/20 23:45 Al Hydroxide/Mg Hydroxide (Mylanta Plus Xs) 15 ml PRN AFTMEALHC PRN PO DYSPEPSIA 09/08/20 23:45 Magnesium Hydroxide (Milk Of Magnesia) 2,400 mg PRN QHS PRN PO CONSTIPATION 09/08/20 23:45 Nicotine (Nicoderm Cq 14mg Patch) 1 patch DAILY TD 09/09/20 09:00 09/21/20 22:52 DC 09/21/20 08:39 Levothyroxine Sodium (Synthroid) 50 mcg DAILY06 PO 09/11/20 06:00 10/03/20 05:55 Amoxicillin (Amoxil) 250 mg [id number] PO 09/11/20 21:00 09/18/20 21:00 DC 09/18/20 20:13 Clonazepam (KlonoPIN) 0.5 mg BID PO 09/13/20 21:00 09/16/20 17:33 DC 09/16/20 08:23 Diazepam (Valium) 5 mg 1X ONCE PO 09/14/20 06:00 09/14/20 06:01 DC 09/14/20 06:00 Lactobacillus Rhamnosus (Culturelle) 1 cap BID PO 09/14/20 09:00 10/03/20 20:21 Nicotine (Nicoderm Cq 7mg Patch) 1 patch DAILY TD 09/22/20 09:00 10/06/20 11:00 10/03/20 09:11 Polyethylene Glycol (miraLAX) 17 gm DAILY PO 09/23/20 09:00 10/03/20 09:11 Sertraline HCl (Zoloft) 25 mg DAILY PO 09/27/20 09:00 09/29/20 23:50 DC 09/29/20 08:30 Sertraline HCl (Zoloft) 50 mg DAILY PO 09/30/20 09:00 10/03/20 09:11 Divalproex Sodium (Depakote Sprinkles) 125 mg DAILY08 PO 09/30/20 08:00 10/03/20 09:11 Divalproex Sodium (Depakote Sprinkles) 125 mg DAILYWSUP PO 09/30/20 17:00 10/03/20 17:41 I have reviewed the current psychotropics carefully including drug interactions. Risk benefit ratio favors no change other than as noted in my dictated progress note. Diagnosis: Problems: (1) Bipolar affective disorder, mixed (2) Anxiety disorder, unspecified (3) Impulse control disorder, unspecified (4) Dementia, vascular, with depression (5) Dementia, vascular, with delusions (6) Dementia in Alzheimer's disease with depression (7) Dementia in Alzheimer's disease with delusions (8) Dementia of the Alzheimer's type with early onset with behavioral disturbance (9) Major neurocognitive disorder OSMANI WASHINGTON MD Oct 03, 2020 23:16
[2020-10-04] MEDS: LEVOTHYROXINE 50 MCG TABLET PO SCH (05:54)
[2020-10-04 06:06] VITALS: BP 136/82
[2020-10-04] MEDS: SERTRALINE 50 MG TABLET. PO SCH (09:28)
[2020-10-04] MEDS: busPIRone 5 MG TABLET. PO SCH ×3 (09:28→20:14)
[2020-10-04] MEDS: NICOTINE 7MG PATCH. TD SCH (09:28)
[2020-10-04] MEDS: DIVALPROEX 125 MG CAP.SPRINK PO SCH ×2 (09:28→17:43)
[2020-10-04] MEDS: POLYETHYLENE GLYCOL 3350 17 GM PACKET. PO SCH (09:28)
[2020-10-04] MEDS: QUEtiapine 50 MG TABLET. PO SCH ×2 (09:28→20:14)
[2020-10-04] MEDS: MULTIVITAMIN with MINERAL TABLET. PO SCH (09:28)
[2020-10-04] MEDS: ASCORBIC ACID 500 MG TABLET PO SCH (09:28)
[2020-10-04] MEDS: LACTOBACILLUS RHAMNOSUS GG 1 CAPSULE. PO SCH ×2 (09:29→20:14)
--- NOTE | 2020-10-04 11:41 | NUR ---
Nursing note: Pt in day room at time of AM med pass and assessment. She is pleasant, compliant with meds whole and cooperative with her assessment. She denies having any pain at that time. She is currently sitting in the day room watching TV. Will continue to monitor.
[2020-10-04 15:46] VITALS: BP 106/59
--- NOTE | 2020-10-04 16:11 | NUR ---
TODD attempted outreach to pt facility today X3 to discuss d/c date. SW left vm with Natalie. At end of day SW attempted to call a last time before end of day, but no one answered facility phone. Awaiting call back from Natalie. TODD made contact with pt niece/DPOA, Lauren, to notify that pt was ready for d/c and that this SW would continue to outreach pt facility to schedule a d/c date and would then let her know when that date would be. Lauren stated that she had spoken to the facility about pt's hydrocephalus and that they were planning to have pt checked out by a neurosurgeon, as recommended, following d/c from [facility]. Lauren appreciative of call. Will call facility back tomorrow.
--- NOTE | 2020-10-04 21:00 | NUR ---
Nursing Note Pt pleasant and cooperative, calm no behaviors. Up in day room social with peers. Watching TV.
--- NOTE | 2020-10-04 22:29 | PDOC ---
Exam Note: Trey Note: Please also refer to the separate dictated note~for this date of service dictated separately.~Patient seen individually. Discussed the patient with Nursing staff reviewed the chart.~Reviewed interim history and current functioning. Reviewed vital signs,~Labs/ Radiology~and current medications noted below. Continue current treatment with the changes noted in the dictated addendum note Assessment: Vital Signs/I&O: Vital Signs Date Time Temp Pulse Resp B/P (MAP) Pulse Ox O2 Delivery O2 Flow Rate FiO2 10/04/20 15:46 98.0 84 16 106/59 (75) 95 09/30/20 16:21 Room Air I & O 10/03/20 10/03/20 10/04/20 15:00 23:00 07:00 Intake Total 840 ml 480 ml Balance 840 ml 480 ml Current Medications: Meds: Current Medications Medications (Trade) Dose Ordered Sig/Jose M Route PRN Reason Start Time Stop Time Status Last Admin Dose Admin Olanzapine (ZyPREXA ZYDIS) 2.5 mg PRN Q2HR PRN PO PSYCHOSIS 09/08/20 22:15 09/14/20 06:54 Trazodone HCl (Desyrel) 50 mg PRN QHS PRN PO INSOMNIA 09/08/20 22:15 09/28/20 20:24 Buspirone HCl (Buspar) 5 mg TID PO 09/09/20 09:00 10/04/20 20:14 Quetiapine Fumarate (SEROquel) 50 mg BID PO 09/09/20 09:00 10/04/20 20:14 Ascorbic Acid (Vitamin C) 500 mg DAILY PO 09/09/20 09:00 10/04/20 09:28 Levothyroxine Sodium (Synthroid) 88 mcg DAILY06 PO 09/09/20 06:00 09/10/20 12:05 DC 09/09/20 04:40 Multivitamins/ Calcium (Thera-M Plus) 1 tab DAILY PO 09/09/20 09:00 10/04/20 09:28 Acetaminophen (Tylenol) 650 mg PRN Q6HRS PRN PO MILD PAIN / TEMP > 100.3'F 09/08/20 23:45 Multi-Ingredient Ointment (Analgesic [place]) 1 barrie PRN QID PRN TP MUSCLE PAIN 09/08/20 23:45 Al Hydroxide/Mg Hydroxide (Mylanta Plus Xs) 15 ml PRN AFTMEALHC PRN PO DYSPEPSIA 09/08/20 23:45 Magnesium Hydroxide (Milk Of Magnesia) 2,400 mg PRN QHS PRN PO CONSTIPATION 09/08/20 23:45 Nicotine (Nicoderm Cq 14mg Patch) 1 patch DAILY TD 09/09/20 09:00 09/21/20 22:52 DC 09/21/20 08:39 Levothyroxine Sodium (Synthroid) 50 mcg DAILY06 PO 09/11/20 06:00 10/04/20 05:54 Amoxicillin (Amoxil) 250 mg [id number] PO 09/11/20 21:00 09/18/20 21:00 DC 09/18/20 20:13 Clonazepam (KlonoPIN) 0.5 mg BID PO 09/13/20 21:00 09/16/20 17:33 DC 09/16/20 08:23 Diazepam (Valium) 5 mg 1X ONCE PO 09/14/20 06:00 09/14/20 06:01 DC 09/14/20 06:00 Lactobacillus Rhamnosus (Culturelle) 1 cap BID PO 09/14/20 09:00 10/04/20 20:14 Nicotine (Nicoderm Cq 7mg Patch) 1 patch DAILY TD 09/22/20 09:00 10/06/20 11:00 10/04/20 09:28 Polyethylene Glycol (miraLAX) 17 gm DAILY PO 09/23/20 09:00 10/04/20 09:28 Sertraline HCl (Zoloft) 25 mg DAILY PO 09/27/20 09:00 09/29/20 23:50 DC 09/29/20 08:30 Sertraline HCl (Zoloft) 50 mg DAILY PO 09/30/20 09:00 10/04/20 09:28 Divalproex Sodium (Depakote Sprinkles) 125 mg DAILY08 PO 09/30/20 08:00 10/04/20 09:28 Divalproex Sodium (Depakote Sprinkles) 125 mg DAILYWSUP PO 09/30/20 17:00 10/04/20 17:43 I have reviewed the current psychotropics carefully including drug interactions. Risk benefit ratio favors no change other than as noted in my dictated progress note. Diagnosis: Problems: (1) Bipolar affective disorder, mixed (2) Anxiety disorder, unspecified (3) Impulse control disorder, unspecified (4) Dementia, vascular, with depression (5) Dementia, vascular, with delusions (6) Dementia in Alzheimer's disease with depression (7) Dementia in Alzheimer's disease with delusions (8) Dementia of the Alzheimer's type with early onset with behavioral disturbance (9) Major neurocognitive disorder OSMANI WASHINGTON MD Oct 04, 2020 22:29
[2020-10-05] MEDS: POLYETHYLENE GLYCOL 3350 17 GM PACKET. PO SCH (05:10)
[2020-10-05] MEDS: LEVOTHYROXINE 50 MCG TABLET PO SCH (05:10)
[2020-10-05] MEDS: NICOTINE 7MG PATCH. TD SCH (05:11)
[2020-10-05] MEDS: SERTRALINE 50 MG TABLET. PO SCH (05:11)
[2020-10-05] MEDS: MULTIVITAMIN with MINERAL TABLET. PO SCH (05:11)
[2020-10-05] MEDS: busPIRone 5 MG TABLET. PO SCH ×3 (05:11→20:58)
[2020-10-05] MEDS: QUEtiapine 50 MG TABLET. PO SCH ×2 (05:11→20:58)
[2020-10-05] MEDS: DIVALPROEX 125 MG CAP.SPRINK PO SCH ×2 (05:11→17:50)
[2020-10-05] MEDS: ASCORBIC ACID 500 MG TABLET PO SCH (05:12)
[2020-10-05] MEDS: LACTOBACILLUS RHAMNOSUS GG 1 CAPSULE. PO SCH ×2 (05:12→20:58)
[2020-10-05 05:57] VITALS: BP 133/84
--- NOTE | 2020-10-05 08:29 | NUR ---
Nursing Note Pt woke up angry, belligerent, dropping F-bombs, yelling out at no one in particular. Medicated patient and encouraged her to go back to sleep to hopefully sleep off her aggression.
--- NOTE | 2020-10-05 11:13 | NUR ---
[facility] Social Work Discharge Planning Form Patient Name EYAD CHAMBERS Admit Date: 09/08/20 DISCHARGE PLAN Discharge Destination: [facility] Care Assessment: No Level II Assessment: No Transportation: [facility] will p/u at 1100 Special Instructions/Notes: Please fax discharge orders and medication list. DISCHARGE TO FACILITY Facility: [facility] [address] [facility] [place] [address] Contact Name: TODD Aponte PCP: Dr. Chowdhury Psychiatrist: Dr. Cuenca
--- NOTE | 2020-10-05 19:39 | NUR ---
Patient has been calm, disorganized, and pleasantly confused during this shift. She was withdrawn to her room most of the day. She did have a couple periods of agitation which were redirected verbally. Will continue to monitor and report to oncoming shift.
--- NOTE | 2020-10-05 21:59 | PDOC ---
Exam Note: Trey Note: Please also refer to the separate dictated note~for this date of service dictated separately.~Patient seen individually. Discussed the patient with Nursing staff reviewed the chart.~Reviewed interim history and current functioning. Reviewed vital signs,~Labs/ Radiology~and current medications noted below. Continue current treatment with the changes noted in the dictated addendum note Assessment: Vital Signs/I&O: Vital Signs Date Time Temp Pulse Resp B/P (MAP) Pulse Ox O2 Delivery O2 Flow Rate FiO2 10/05/20 16:18 98.8 84 20 96 10/05/20 05:57 133/84 (100) 09/30/20 16:21 Room Air I & O 10/04/20 10/04/20 10/05/20 15:00 23:00 07:00 Intake Total 480 ml 600 ml Balance 480 ml 600 ml Current Medications: Meds: Current Medications Medications (Trade) Dose Ordered Sig/Jose M Route PRN Reason Start Time Stop Time Status Last Admin Dose Admin Olanzapine (ZyPREXA ZYDIS) 2.5 mg PRN Q2HR PRN PO PSYCHOSIS 09/08/20 22:15 09/14/20 06:54 Trazodone HCl (Desyrel) 50 mg PRN QHS PRN PO INSOMNIA 09/08/20 22:15 09/28/20 20:24 Buspirone HCl (Buspar) 5 mg TID PO 09/09/20 09:00 10/05/20 20:58 Quetiapine Fumarate (SEROquel) 50 mg BID PO 09/09/20 09:00 10/05/20 20:58 Ascorbic Acid (Vitamin C) 500 mg DAILY PO 09/09/20 09:00 10/05/20 05:12 Levothyroxine Sodium (Synthroid) 88 mcg DAILY06 PO 09/09/20 06:00 09/10/20 12:05 DC 09/09/20 04:40 Multivitamins/ Calcium (Thera-M Plus) 1 tab DAILY PO 09/09/20 09:00 10/05/20 05:11 Acetaminophen (Tylenol) 650 mg PRN Q6HRS PRN PO MILD PAIN / TEMP > 100.3'F 09/08/20 23:45 Multi-Ingredient Ointment (Analgesic [place]) 1 barrie PRN QID PRN TP MUSCLE PAIN 09/08/20 23:45 Al Hydroxide/Mg Hydroxide (Mylanta Plus Xs) 15 ml PRN AFTMEALHC PRN PO DYSPEPSIA 09/08/20 23:45 Magnesium Hydroxide (Milk Of Magnesia) 2,400 mg PRN QHS PRN PO CONSTIPATION 09/08/20 23:45 Nicotine (Nicoderm Cq 14mg Patch) 1 patch DAILY TD 09/09/20 09:00 09/21/20 22:52 DC 09/21/20 08:39 Levothyroxine Sodium (Synthroid) 50 mcg DAILY06 PO 09/11/20 06:00 10/05/20 05:10 Amoxicillin (Amoxil) 250 mg [id number] PO 09/11/20 21:00 09/18/20 21:00 DC 09/18/20 20:13 Clonazepam (KlonoPIN) 0.5 mg BID PO 09/13/20 21:00 09/16/20 17:33 DC 09/16/20 08:23 Diazepam (Valium) 5 mg 1X ONCE PO 09/14/20 06:00 09/14/20 06:01 DC 09/14/20 06:00 Lactobacillus Rhamnosus (Culturelle) 1 cap BID PO 09/14/20 09:00 10/05/20 20:58 Nicotine (Nicoderm Cq 7mg Patch) 1 patch DAILY TD 09/22/20 09:00 10/06/20 11:00 10/05/20 05:11 Polyethylene Glycol (miraLAX) 17 gm DAILY PO 09/23/20 09:00 10/05/20 05:10 Sertraline HCl (Zoloft) 25 mg DAILY PO 09/27/20 09:00 09/29/20 23:50 DC 09/29/20 08:30 Sertraline HCl (Zoloft) 50 mg DAILY PO 09/30/20 09:00 10/05/20 05:11 Divalproex Sodium (Depakote Sprinkles) 125 mg DAILY08 PO 09/30/20 08:00 10/05/20 05:11 Divalproex Sodium (Depakote Sprinkles) 125 mg DAILYWSUP PO 09/30/20 17:00 10/05/20 17:50 I have reviewed the current psychotropics carefully including drug interactions. Risk benefit ratio favors no change other than as noted in my dictated progress note. Diagnosis: Problems: (1) Bipolar affective disorder, mixed (2) Anxiety disorder, unspecified (3) Impulse control disorder, unspecified (4) Dementia, vascular, with depression (5) Dementia, vascular, with delusions (6) Dementia in Alzheimer's disease with depression (7) Dementia in Alzheimer's disease with delusions (8) Dementia of the Alzheimer's type with early onset with behavioral disturbance (9) Major neurocognitive disorder OSMANI WASHINGTON MD Oct 05, 2020 21:59
--- NOTE | 2020-10-05 23:59 | NUR ---
Patient is sitting outside of the [facility] nurses station on assumption of care, waiting to go home. She knows she is discharging tomorrow and is excited to leave. Compliant with assessments and medications taken whole. No agitation. She does not appear to be experiencing any pain or discomfort. Patient appears to be sleeping comfortably at present time. Will continue to monitor.
[2020-10-06] MEDS ORDERED: ACET325T21 PO (03:57)
[2020-10-06] MEDS ORDERED: DIVA125C2 PO ×2 (03:58→03:59)
[2020-10-06] MEDS ORDERED: LACT1CAP21 PO (04:00)
[2020-10-06] MEDS ORDERED: MAGN24003 PO (04:01)
[2020-10-06] MEDS ORDERED: MAG355OR12 PO (04:02)
[2020-10-06] MEDS ORDERED: METH28OI2 TP (04:03)
[2020-10-06] MEDS ORDERED: OLAN5TAB99 PO (04:05)
[2020-10-06] MEDS ORDERED: SERT50TA PO (04:07)
[2020-10-06] MEDS ORDERED: POLY17PO5 PO (04:07)
[2020-10-06] MEDS ORDERED: TRAZ-120 PO (04:08)
[2020-10-06] MEDS: LEVOTHYROXINE 50 MCG TABLET PO SCH (05:26)
[2020-10-06 06:00] VITALS: BP 110/76
--- NOTE | 2020-10-06 07:04 | PDOC ---
Exam Note: Trey Note: This note is a late entry for 10/03/2020 covers elements not covered in my initial note. Subjective: The patient was seen individually in the evening of 10/03/2020 with Rajwinder GILLILAND, discussed and reviewed the chart. The patient slept 7 hours previous night. Per nursing report the patient has been doing wonderful. She remains confused, somewhat rambling in her speech but redirectable. She has a great singing voice. Review of Systems: No CV, , pulmonary, eye, ENT system symptoms on review. She does have the abnormal movements. Mental Status Exam: The patient is oriented to herself and situation. Insight and judgment, recent and remote memory, attention and concentration, fund of knowledge is poor consistent with her diagnoses. Laboratory Data: Reviewed. Impression: Major neurocognitive disorder Alzheimer vascular with delusion, depression, behavioral disturbance. Anxiety disorder unspecified. Impulse control disorder unspecified. Plan: Maintain current psychotropics unchanged. Assessment: Vital Signs/I&O: Vital Signs Date Time Temp Pulse Resp B/P (MAP) Pulse Ox O2 Delivery O2 Flow Rate FiO2 10/06/20 06:00 96.9 70 20 110/76 (87) 94 09/30/20 16:21 Room Air I & O 10/05/20 10/05/20 10/06/20 15:00 23:00 07:00 Intake Total 600 ml 360 ml Balance 600 ml 360 ml Current Medications: Meds: Current Medications Medications (Trade) Dose Ordered Sig/Jose M Route PRN Reason Start Time Stop Time Status Last Admin Dose Admin Olanzapine (ZyPREXA ZYDIS) 2.5 mg PRN Q2HR PRN PO PSYCHOSIS 09/08/20 22:15 09/14/20 06:54 Trazodone HCl (Desyrel) 50 mg PRN QHS PRN PO INSOMNIA 09/08/20 22:15 09/28/20 20:24 Buspirone HCl (Buspar) 5 mg TID PO 09/09/20 09:00 10/05/20 20:58 Quetiapine Fumarate (SEROquel) 50 mg BID PO 09/09/20 09:00 10/05/20 20:58 Ascorbic Acid (Vitamin C) 500 mg DAILY PO 09/09/20 09:00 10/05/20 05:12 Levothyroxine Sodium (Synthroid) 88 mcg DAILY06 PO 09/09/20 06:00 09/10/20 12:05 DC 09/09/20 04:40 Multivitamins/ Calcium (Thera-M Plus) 1 tab DAILY PO 09/09/20 09:00 10/05/20 05:11 Acetaminophen (Tylenol) 650 mg PRN Q6HRS PRN PO MILD PAIN / TEMP > 100.3'F 09/08/20 23:45 Multi-Ingredient Ointment (Analgesic [place]) 1 barrie PRN QID PRN TP MUSCLE PAIN 09/08/20 23:45 Al Hydroxide/Mg Hydroxide (Mylanta Plus Xs) 15 ml PRN AFTMEALHC PRN PO DYSPEPSIA 09/08/20 23:45 Magnesium Hydroxide (Milk Of Magnesia) 2,400 mg PRN QHS PRN PO CONSTIPATION 09/08/20 23:45 Nicotine (Nicoderm Cq 14mg Patch) 1 patch DAILY TD 09/09/20 09:00 09/21/20 22:52 DC 09/21/20 08:39 Levothyroxine Sodium (Synthroid) 50 mcg DAILY06 PO 09/11/20 06:00 10/06/20 05:26 Amoxicillin (Amoxil) 250 mg [id number] PO 09/11/20 21:00 09/18/20 21:00 DC 09/18/20 20:13 Clonazepam (KlonoPIN) 0.5 mg BID PO 09/13/20 21:00 09/16/20 17:33 DC 09/16/20 08:23 Diazepam (Valium) 5 mg 1X ONCE PO 09/14/20 06:00 09/14/20 06:01 DC 09/14/20 06:00 Lactobacillus Rhamnosus (Culturelle) 1 cap BID PO 09/14/20 09:00 10/05/20 20:58 Nicotine (Nicoderm Cq 7mg Patch) 1 patch DAILY TD 09/22/20 09:00 10/06/20 11:00 10/05/20 05:11 Polyethylene Glycol (miraLAX) 17 gm DAILY PO 09/23/20 09:00 10/05/20 05:10 Sertraline HCl (Zoloft) 25 mg DAILY PO 09/27/20 09:00 09/29/20 23:50 DC 09/29/20 08:30 Sertraline HCl (Zoloft) 50 mg DAILY PO 09/30/20 09:00 10/05/20 05:11 Divalproex Sodium (Depakote Sprinkles) 125 mg DAILY08 PO 09/30/20 08:00 10/05/20 05:11 Divalproex Sodium (Depakote Sprinkles) 125 mg DAILYWSUP PO 09/30/20 17:00 10/05/20 17:50 I have reviewed the current psychotropics carefully including drug interactions. Risk benefit ratio favors no change other than as noted in my dictated progress note. Diagnosis: Problems: (1) Bipolar affective disorder, mixed (2) Anxiety disorder, unspecified (3) Impulse control disorder, unspecified (4) Dementia, vascular, with depression (5) Dementia, vascular, with delusions (6) Dementia in Alzheimer's disease with depression (7) Dementia in Alzheimer's disease with delusions (8) Dementia of the Alzheimer's type with early onset with behavioral disturbance (9) Major neurocognitive disorder OSMANI WASHINGTON MD Oct 06, 2020 07:04
--- NOTE | 2020-10-06 07:24 | PDOC ---
Exam Note: Trey Note: This note is a late entry for 10/04/2020 covers elements not covered in my initial note. Subjective: The patient was seen individually in the evening of 10/04/2020 with Rajwinder GILLILAND, discussed and reviewed the chart. The patient slept 6 hours previous night. She was somewhat irritable in the morning, restless, anxious but then did okay rest of the day. I met with her in the dayroom. Review of Systems: No CV, , pulmonary, eye, ENT system symptoms on review. Mental Status Exam: The patient is oriented to herself and situation. She has rapid speech, difficult to understand at times. Insight and judgment, recent and remote memory, attention and concentration, fund of knowledge is poor consistent with her diagnoses. No suicidal or homicidal ideation. Laboratory Data: Reviewed. Impression: Major neurocognitive disorder Alzheimer vascular with delusion, depression, behavioral disturbance. Anxiety disorder unspecified. Impulse con trol disorder unspecified. Plan: Maintain current psychotropics unchanged. Assessment: Vital Signs/I&O: Vital Signs Date Time Temp Pulse Resp B/P (MAP) Pulse Ox O2 Delivery O2 Flow Rate FiO2 10/06/20 06:00 96.9 70 20 110/76 (87) 94 09/30/20 16:21 Room Air I & O 10/05/20 10/05/20 10/06/20 14:59 22:59 06:59 Intake Total 600 ml 360 ml Balance 600 ml 360 ml Current Medications: Meds: Current Medications Medications (Trade) Dose Ordered Sig/Jose M Route PRN Reason Start Time Stop Time Status Last Admin Dose Admin Olanzapine (ZyPREXA ZYDIS) 2.5 mg PRN Q2HR PRN PO PSYCHOSIS 09/08/20 22:15 09/14/20 06:54 Trazodone HCl (Desyrel) 50 mg PRN QHS PRN PO INSOMNIA 09/08/20 22:15 09/28/20 20:24 Buspirone HCl (Buspar) 5 mg TID PO 09/09/20 09:00 10/05/20 20:58 Quetiapine Fumarate (SEROquel) 50 mg BID PO 09/09/20 09:00 10/05/20 20:58 Ascorbic Acid (Vitamin C) 500 mg DAILY PO 09/09/20 09:00 10/05/20 05:12 Levothyroxine Sodium (Synthroid) 88 mcg DAILY06 PO 09/09/20 06:00 09/10/20 12:05 DC 09/09/20 04:40 Multivitamins/ Calcium (Thera-M Plus) 1 tab DAILY PO 09/09/20 09:00 10/05/20 05:11 Acetaminophen (Tylenol) 650 mg PRN Q6HRS PRN PO MILD PAIN / TEMP > 100.3'F 09/08/20 23:45 Multi-Ingredient Ointment (Analgesic [place]) 1 barrie PRN QID PRN TP MUSCLE PAIN 09/08/20 23:45 Al Hydroxide/Mg Hydroxide (Mylanta Plus Xs) 15 ml PRN AFTMEALHC PRN PO DYSPEPSIA 09/08/20 23:45 Magnesium Hydroxide (Milk Of Magnesia) 2,400 mg PRN QHS PRN PO CONSTIPATION 09/08/20 23:45 Nicotine (Nicoderm Cq 14mg Patch) 1 patch DAILY TD 09/09/20 09:00 09/21/20 22:52 DC 09/21/20 08:39 Levothyroxine Sodium (Synthroid) 50 mcg DAILY06 PO 09/11/20 06:00 10/06/20 05:26 Amoxicillin (Amoxil) 250 mg [id number] PO 09/11/20 21:00 09/18/20 21:00 DC 09/18/20 20:13 Clonazepam (KlonoPIN) 0.5 mg BID PO 09/13/20 21:00 09/16/20 17:33 DC 09/16/20 08:23 Diazepam (Valium) 5 mg 1X ONCE PO 09/14/20 06:00 09/14/20 06:01 DC 09/14/20 06:00 Lactobacillus Rhamnosus (Culturelle) 1 cap BID PO 09/14/20 09:00 10/05/20 20:58 Nicotine (Nicoderm Cq 7mg Patch) 1 patch DAILY TD 09/22/20 09:00 10/06/20 11:00 10/05/20 05:11 Polyethylene Glycol (miraLAX) 17 gm DAILY PO 09/23/20 09:00 10/05/20 05:10 Sertraline HCl (Zoloft) 25 mg DAILY PO 09/27/20 09:00 09/29/20 23:50 DC 09/29/20 08:30 Sertraline HCl (Zoloft) 50 mg DAILY PO 09/30/20 09:00 10/05/20 05:11 Divalproex Sodium (Depakote Sprinkles) 125 mg DAILY08 PO 09/30/20 08:00 10/05/20 05:11 Divalproex Sodium (Depakote Sprinkles) 125 mg DAILYWSUP PO 09/30/20 17:00 10/05/20 17:50 I have reviewed the current psychotropics carefully including drug interactions. Risk benefit ratio favors no change other than as noted in my dictated progress note. Diagnosis: Problems: (1) Bipolar affective disorder, mixed (2) Anxiety disorder, unspecified (3) Impulse control disorder, unspecified (4) Dementia, vascular, with depression (5) Dementia, vascular, with delusions (6) Dementia in Alzheimer's disease with depression (7) Dementia in Alzheimer's disease with delusions (8) Dementia of the Alzheimer's type with early onset with behavioral disturbance (9) Major neurocognitive disorder OSMANI WASHINGTON MD Oct 06, 2020 07:24
--- NOTE | 2020-10-06 07:44 | PDOC ---
Exam Note: Trey Note: This note is a late entry for 10/05/2020 covers elements not covered in my initial note. Subjective: The patient was reviewed in the morning of 10/05/2020 for a treatment team meeting with Maggie Dunne, Eri Chao and Penny (high school social studies teacher), Angella, activity therapy and Louis GILLILAND, discussed and reviewed the chart. The patient slept 4-3/4 hours previous night. She is oriented to herself. No hallucinations noted. She easily gets over-stimulated in the dayroom. She received Klonopin at 5 a.m. due to anxiety. Review of Systems: No CV, , pulmonary, eye, ENT system symptoms on review. Mental Status Exam: The patient is oriented to herself and situation. She has rapid speech. Insight and judgment, recent and remote memory, attention and concentration, fund of knowledge is poor consistent with her diagnoses. No suicidal or homicidal ideation. Laboratory Data: Reviewed. Impression: Major neurocognitive disorder Alzheimer vascular with delusion, depression, behavioral disturbance. Anxiety disorder unspecified. Impulse control disorder unspecified. Plan: Maintain current psychotropics unchanged. Assessment: Vital Signs/I&O: Vital Signs Date Time Temp Pulse Resp B/P (MAP) Pulse Ox O2 Delivery O2 Flow Rate FiO2 10/06/20 06:00 96.9 70 20 110/76 (87) 94 09/30/20 16:21 Room Air I & O 10/05/20 10/05/20 10/06/20 15:00 23:00 07:00 Intake Total 600 ml 360 ml Balance 600 ml 360 ml Current Medications: Meds: Current Medications Medications (Trade) Dose Ordered Sig/Jose M Route PRN Reason Start Time Stop Time Status Last Admin Dose Admin Olanzapine (ZyPREXA ZYDIS) 2.5 mg PRN Q2HR PRN PO PSYCHOSIS 09/08/20 22:15 09/14/20 06:54 Trazodone HCl (Desyrel) 50 mg PRN QHS PRN PO INSOMNIA 09/08/20 22:15 09/28/20 20:24 Buspirone HCl (Buspar) 5 mg TID PO 09/09/20 09:00 10/05/20 20:58 Quetiapine Fumarate (SEROquel) 50 mg BID PO 09/09/20 09:00 10/05/20 20:58 Ascorbic Acid (Vitamin C) 500 mg DAILY PO 09/09/20 09:00 10/05/20 05:12 Levothyroxine Sodium (Synthroid) 88 mcg DAILY06 PO 09/09/20 06:00 09/10/20 12:05 DC 09/09/20 04:40 Multivitamins/ Calcium (Thera-M Plus) 1 tab DAILY PO 09/09/20 09:00 10/05/20 05:11 Acetaminophen (Tylenol) 650 mg PRN Q6HRS PRN PO MILD PAIN / TEMP > 100.3'F 09/08/20 23:45 Multi-Ingredient Ointment (Analgesic [place]) 1 barrie PRN QID PRN TP MUSCLE PAIN 09/08/20 23:45 Al Hydroxide/Mg Hydroxide (Mylanta Plus Xs) 15 ml PRN AFTMEALHC PRN PO DYSPEPSIA 09/08/20 23:45 Magnesium Hydroxide (Milk Of Magnesia) 2,400 mg PRN QHS PRN PO CONSTIPATION 09/08/20 23:45 Nicotine (Nicoderm Cq 14mg Patch) 1 patch DAILY TD 09/09/20 09:00 09/21/20 22:52 DC 09/21/20 08:39 Levothyroxine Sodium (Synthroid) 50 mcg DAILY06 PO 09/11/20 06:00 10/06/20 05:26 Amoxicillin (Amoxil) 250 mg [id number] PO 09/11/20 21:00 09/18/20 21:00 DC 09/18/20 20:13 Clonazepam (KlonoPIN) 0.5 mg BID PO 09/13/20 21:00 09/16/20 17:33 DC 09/16/20 08:23 Diazepam (Valium) 5 mg 1X ONCE PO 09/14/20 06:00 09/14/20 06:01 DC 09/14/20 06:00 Lactobacillus Rhamnosus (Culturelle) 1 cap BID PO 09/14/20 09:00 10/05/20 20:58 Nicotine (Nicoderm Cq 7mg Patch) 1 patch DAILY TD 09/22/20 09:00 10/06/20 11:00 10/05/20 05:11 Polyethylene Glycol (miraLAX) 17 gm DAILY PO 09/23/20 09:00 10/05/20 05:10 Sertraline HCl (Zoloft) 25 mg DAILY PO 09/27/20 09:00 09/29/20 23:50 DC 09/29/20 08:30 Sertraline HCl (Zoloft) 50 mg DAILY PO 09/30/20 09:00 10/05/20 05:11 Divalproex Sodium (Depakote Sprinkles) 125 mg DAILY08 PO 09/30/20 08:00 10/05/20 05:11 Divalproex Sodium (Depakote Sprinkles) 125 mg DAILYWSUP PO 09/30/20 17:00 10/05/20 17:50 I have reviewed the current psychotropics carefully including drug interactions. Risk benefit ratio favors no change other than as noted in my dictated progress note. Diagnosis: Problems: (1) Bipolar affective disorder, mixed (2) Anxiety disorder, unspecified (3) Impulse control disorder, unspecified (4) Dementia, vascular, with depression (5) Dementia, vascular, with delusions (6) Dementia in Alzheimer's disease with depression (7) Dementia in Alzheimer's disease with delusions (8) Dementia of the Alzheimer's type with early onset with behavioral disturbance (9) Major neurocognitive disorder OSMANI WASHINGTON MD Oct 06, 2020 07:44
[2020-10-06] MEDS: SERTRALINE 50 MG TABLET. PO SCH (08:14)
[2020-10-06] MEDS: ASCORBIC ACID 500 MG TABLET PO SCH (08:14)
[2020-10-06] MEDS: LACTOBACILLUS RHAMNOSUS GG 1 CAPSULE. PO SCH (08:14)
[2020-10-06] MEDS: busPIRone 5 MG TABLET. PO SCH (08:14)
[2020-10-06] MEDS: MULTIVITAMIN with MINERAL TABLET. PO SCH (08:14)
[2020-10-06] MEDS: DIVALPROEX 125 MG CAP.SPRINK PO SCH (08:14)
[2020-10-06] MEDS: QUEtiapine 50 MG TABLET. PO SCH (08:14)
[2020-10-06] MEDS: NICOTINE 7MG PATCH. TD SCH (08:15)
[2020-10-06] MEDS: POLYETHYLENE GLYCOL 3350 17 GM PACKET. PO SCH (08:15)
--- NOTE | 2020-10-06 10:45 | NUR ---
Tobacco Discharge Note [facility] Tobacco Hotline called with patient prior to discharge, No, patient refused Tobacco cessation medication listed with current medications for discharge. No, 2 week course completed Transition Record was faxed to follow-up provider with the following elements: Reason for admission, procedures, tests, principal diagnosis, pending studies, patient instructions, 06/01 contact information for unit, phone number to obtain pending test results, plan for follow-up care, physician follow-up, advanced directive information, and medication list with dose, duration and instructions. This information was included in the following documents: History and physical, lab results, study results, progress notes, social work planning form, DC instruction form, patient visit summary, and medication reconciliation form. Date & time record faxed: 04:35 06 October 2020 Record faxed to: [employer] [facility] [place] Record discussed with/ report given to: Voicemail left at nurse's station. Addendum: 10/06/20 at 1155 by TERESSA DESAI II, RN Discharge report given to TALAT Castillo at [facility].
--- NOTE | 2020-10-06 22:12 | PDOC ---
Exam Note: Trey Note: Please also refer to the separate dictated note~for this date of service dictated separately.~Patient seen individually. Discussed the patient with Nursing staff reviewed the chart.~Reviewed interim history and current functioning. Reviewed vital signs,~Labs/ Radiology~and current medications noted below. Continue current treatment with the changes noted in the dictated addendum note Assessment: Vital Signs/I&O: Vital Signs Date Time Temp Pulse Resp B/P (MAP) Pulse Ox O2 Delivery O2 Flow Rate FiO2 10/06/20 06:00 96.9 70 20 110/76 (87) 94 09/30/20 16:21 Room Air I & O 10/05/20 10/05/20 10/06/20 15:00 23:00 07:00 Intake Total 600 ml 360 ml Balance 600 ml 360 ml Current Medications: Meds: Current Medications Medications (Trade) Dose Ordered Sig/Jose M Route PRN Reason Start Time Stop Time Status Last Admin Dose Admin Olanzapine (ZyPREXA ZYDIS) 2.5 mg PRN Q2HR PRN PO PSYCHOSIS 09/08/20 22:15 10/06/20 11:31 DC 09/14/20 06:54 Trazodone HCl (Desyrel) 50 mg PRN QHS PRN PO INSOMNIA 09/08/20 22:15 10/06/20 11:31 DC 09/28/20 20:24 Buspirone HCl (Buspar) 5 mg TID PO 09/09/20 09:00 10/06/20 11:31 DC 10/06/20 08:14 Quetiapine Fumarate (SEROquel) 50 mg BID PO 09/09/20 09:00 10/06/20 11:31 DC 10/06/20 08:14 Ascorbic Acid (Vitamin C) 500 mg DAILY PO 09/09/20 09:00 10/06/20 11:31 DC 10/06/20 08:14 Levothyroxine Sodium (Synthroid) 88 mcg DAILY06 PO 09/09/20 06:00 09/10/20 12:05 DC 09/09/20 04:40 Multivitamins/ Calcium (Thera-M Plus) 1 tab DAILY PO 09/09/20 09:00 10/06/20 11:31 DC 10/06/20 08:14 Acetaminophen (Tylenol) 650 mg PRN Q6HRS PRN PO MILD PAIN / TEMP > 100.3'F 09/08/20 23:45 10/06/20 11:31 DC Multi-Ingredient Ointment (Analgesic [place]) 1 barrie PRN QID PRN TP MUSCLE PAIN 09/08/20 23:45 10/06/20 11:31 DC Al Hydroxide/Mg Hydroxide (Mylanta Plus Xs) 15 ml PRN AFTMEALHC PRN PO DYSPEPSIA 09/08/20 23:45 10/06/20 11:31 DC Magnesium Hydroxide (Milk Of Magnesia) 2,400 mg PRN QHS PRN PO CONSTIPATION 09/08/20 23:45 10/06/20 11:31 DC Nicotine (Nicoderm Cq 14mg Patch) 1 patch DAILY TD 09/09/20 09:00 09/21/20 22:52 DC 09/21/20 08:39 Levothyroxine Sodium (Synthroid) 50 mcg DAILY06 PO 09/11/20 06:00 10/06/20 11:31 DC 10/06/20 05:26 Amoxicillin (Amoxil) 250 mg [id number] PO 09/11/20 21:00 09/18/20 21:00 DC 09/18/20 20:13 Clonazepam (KlonoPIN) 0.5 mg BID PO 09/13/20 21:00 09/16/20 17:33 DC 09/16/20 08:23 Diazepam (Valium) 5 mg 1X ONCE PO 09/14/20 06:00 09/14/20 06:01 DC 09/14/20 06:00 Lactobacillus Rhamnosus (Culturelle) 1 cap BID PO 09/14/20 09:00 10/06/20 11:31 DC 10/06/20 08:14 Nicotine (Nicoderm Cq 7mg Patch) 1 patch DAILY TD 09/22/20 09:00 10/06/20 11:00 DC 10/06/20 08:15 Polyethylene Glycol (miraLAX) 17 gm DAILY PO 09/23/20 09:00 10/06/20 11:31 DC 10/06/20 08:15 Sertraline HCl (Zoloft) 25 mg DAILY PO 09/27/20 09:00 09/29/20 23:50 DC 09/29/20 08:30 Sertraline HCl (Zoloft) 50 mg DAILY PO 09/30/20 09:00 10/06/20 11:31 DC 10/06/20 08:14 Divalproex Sodium (Depakote Sprinkles) 125 mg DAILY08 PO 09/30/20 08:00 10/06/20 11:31 DC 10/06/20 08:14 Divalproex Sodium (Depakote Sprinkles) 125 mg DAILYWSUP PO 09/30/20 17:00 10/06/20 11:31 DC 10/05/20 17:50 I have reviewed the current psychotropics carefully including drug interactions. Risk benefit ratio favors no change other than as noted in my dictated progress note. Diagnosis: Problems: (1) Bipolar affective disorder, mixed (2) Anxiety disorder, unspecified (3) Impulse control disorder, unspecified (4) Dementia, vascular, with depression (5) Dementia, vascular, with delusions (6) Dementia in Alzheimer's disease with depression (7) Dementia in Alzheimer's disease with delusions (8) Dementia of the Alzheimer's type with early onset with behavioral disturbance (9) Major neurocognitive disorder OSMANI WASHINGTON MD Oct 06, 2020 22:12
--- NOTE | 2020-10-07 00:44 | DS ---
DATE OF DISCHARGE: 10/06/2020 DISCHARGE SUMMARY/PSYCHIATRIC PROGRESS NOTE This note covers the elements not covered in my initial note of 10/06/2020. REASON FOR ADMISSION: Please refer to the admission history for details. Briefly, the patient is a 69-year-old female referred to us from [facility] by her primary care physician on account of increased confusion, agitation and aggression. She is combative and striking out at staff, verbally abusive, belligerent, refusing cares and showers. She had failed outpatient psychiatric interventions resulting in this referral. SIGNIFICANT FINDINGS AND CLINICAL COURSE: Following admission, the patient was seen daily individually by myself from a psychiatric standpoint, medical followup with Dr. Hill/Dr. Craig. The patient remains anxious, restless, and quite confused. She has significant movement disorder, but despite this was able to function adequately. She is quite anxious, restless with ongoing mood vacillations. She finally seemed to respond to a combination of BuSpar 5 mg t.i.d., Seroquel 50 mg b.i.d., Zyprexa p.r.n., trazodone 50 mg at bedtime p.r.n., Zoloft 50 mg a day, Depakote Sprinkles 125 mg b.i.d. Valproic acid level subtherapeutic at 19, but clinically adequate. REVIEW OF SYSTEMS: Prior to discharge on 10/06/2020, review of systems is positive for the movement disorder. No CV, , pulmonary, eye, ENT system symptoms on review. MENTAL STATUS EXAM: Oriented to herself. Insight, judgment, recent and remote memory, attention, concentration, fund of knowledge poor, consistent with her diagnoses. FINAL DIAGNOSES: Major neurocognitive disorder, Alzheimer, vascular with delusion, depression, behavioral disturbance; anxiety disorder, unspecified; impulse control disorder, unspecified. Rest unchanged from admission. DISCHARGE MEDICATIONS: Please refer to the MRAD. DISCHARGE INSTRUCTIONS: Outpatient psychiatric and medical followup at the correction. Time for discharge day management greater than 30 minutes. MAN Isabel WASHINGTON MD DR: LALY/celso JOB#: [id number] / [id number]
== END 2020-10-06 10:45 | DRG 57 ==
LOC: GEROPSY 21:37
PROVIDERS: ADMIT Psychiatry & Neurology Psychiatry; ATTEND Psychiatry & Neurology Psychiatry
DX: G30.9 Alzheimer's disease, unspecified (principal); F01.51 Vascular dementia, unspecified severity, with behavioral disturbance; F31.60 Bipolar disorder, current episode mixed, unspecified; F02.81 Dementia in other diseases classified elsewhere, unspecified severity, with behavioral disturbance; G10 Huntington's disease; G91.2 (Idiopathic) normal pressure hydrocephalus; E03.9 Hypothyroidism, unspecified; E05.90 Thyrotoxicosis, unspecified without thyrotoxic crisis or storm; F41.1 Generalized anxiety disorder; Z20.822 Contact with and (suspected) exposure to COVID-19; F63.9 Impulse disorder, unspecified; F90.9 Attention-deficit hyperactivity disorder, unspecified type; J43.9 Emphysema, unspecified; R29.6 Repeated falls; Z79.899 Other long term (current) drug therapy; Z87.891 Personal history of nicotine dependence; Z59.0 Homelessness
CPT/HCPCS: 36415; 70450; 80053; 80061; 80164; 81001; 82306; 82607; 83036; 83540; 83550; 83735; 84436; 84439; 84443; 84480; 85025; 85027; 85379; 86592; 87077; 87086; U0003; U0005